=== PATIENT | female | born 1945 | race Caucasian/White ===

== ENCOUNTER 2019-05-01 10:24 | Outpatient (RCR) | payer MEDICARE, BC, SELFPAY ==
[2019-05-01 11:20] VITALS: BMI 52.0
== END 2019-06-13 15:10 | disposition home or self-care (01) ==
LOC: ANHWOC 10:24
PROVIDERS: PCP Family Medicine; Visit Provider Family Medicine
DX: I87.2 Venous insufficiency (chronic) (peripheral) (principal)
CPT/HCPCS: 92593; 99212; A9270; G0463

== ENCOUNTER 2022-02-02 11:28 | Outpatient (CLI) | payer MEDICARE, BC, SELFPAY ==
[2022-02-02 11:52] LABS: Basophils Absolute Auto 0.1 K/mm3 (0.0-0.1); Basophils Percent Auto 0.6 % (0.2-1.2); Eosinophils Absolute Auto 0.2 K/mm3 (0-0.3); Eosinophils Percent Auto 2.4 % (0-4.4); Hematocrit 30.7 % (37.0-47.0); Immature Granulocyte Absolute 0.04 K/mm3 (0.00-0.031); Immature Granulocyte Percent A 0.5 % (0-0.5); Lymphocytes Absolute Auto 0.71 K/mm3 (0.9-3.2); Lymphocytes Percent Auto 8.2 % (18.3-44.2); Mean Corpuscular HGB Conc 32.6 g/dl (32-36); Mean Corpuscular Hemoglobin 31.5 pg (26-34); Mean Corpuscular Volume 96.8 fl (80-100); Mean Platelet Volume 9.3 fl (7.4-10.4); Monocytes Absolute Auto 0.7 K/mm3 (0.1-0.6); Monocytes Percent Auto 8.2 % (2.6-8.5); Neutrophils Percent Auto 80.1 % (45.5-73.1); Platelet Count Result 235 k/mm3 (150-375); Red Blood Count 3.17 M/mm3 (4.2-5.4); Red Cell Distribution Width 14.3 % (11.5-14.5); White Blood Count 8.7 K/mm3 (4.5-10.0)
[2022-02-02 15:28] LABS: Iron 52 ug/dL (37-170)
[2022-02-02 15:34] LABS: Alanine Aminotransferase 16 U/L (6-35); Albumin Level 4.1 g/dL (3.5-5.1); Alkaline Phosphatase 79 U/L (38-126); Anion Gap 10 mmol/L (8-16); Aspartate Amino Transferase 24 U/L (14-36); Bilirubin,Total 0.7 mg/dL (0.2-1.3); Blood Urea Nitrogen 38 mg/dL (7-17); Calcium 10.6 mg/dL (8.4-10.2); Carbon Dioxide 30 mmol/L (22-30); Chloride 95 mmol/L (98-107); Estimated Glomerular Filt Rate 34; Glucose 100 mg/dL (65-110); Lactate Dehydrogenase 152 U/L (120-246); Potassium 4.1 mmol/L (3.4-5.0); Sodium 135 mmol/L (137-145)
[2022-02-02 15:45] LABS: Percent Iron Saturation 18 % (20-50)
[2022-02-02 16:42] LABS: Folic Acid 6.6 ng/mL (2.76->20); Vitamin B12 > 1000.0 pg/mL (239-931)
== END 2022-02-02 11:29 | disposition home or self-care (01) ==
LOC: ANHLAB 11:31
PROVIDERS: PCP Family Medicine; Visit Provider Internal Medicine Hematology & Oncology
DX: D64.9 Anemia, unspecified (principal)
CPT/HCPCS: 36415; 80053; 82607; 82728; 82746; 83540; 83550; 83615; 85025

== ENCOUNTER 2022-06-29 10:35 | Observation (INO) | payer MEDICARE, BC, SELFPAY ==
[2022-06-29] VITALS (39 sets, daily range): BP systolic 111–180; BP diastolic 46–117; PULSE 62–92; RESP 14–24; TEMP 36.2–36.7; O2SAT 95–100; BMI 58.3
--- NOTE | ~2022-06-29 | US_ITS ---
Duplex Sonography of the bilateral lower extremities: Indication: Swelling Sagittal and transverse B-mode images as well as color-flow imaging were performed on the right and l eft femoral and popliteal veins. B-mode examination was done without and with compression in the tra nsverse plane. There is good visualization of the bilateral common femoral, proximal profunda femora l, superficial femoral, greater saphenous, and popliteal veins. Normal flow was seen on color-flow im aging. Normal compressibility was demonstrated. Impression: No evidence of deep vein thrombosis involving the bilateral femoral, greater saphenous, s uperficial femoral, or popliteal veins. Reviewed, dictated and finalized at location M. ULATION REPRESENTATIVE Impression: No evidence of deep vein thrombosis involving the bilateral femoral , greater saphenous, superficial femoral, or popliteal veins.
--- NOTE | ~2022-06-29 | CT_ITS ---
Noncontrast CT scan of the lumbar spine CLINICAL HISTORY: Back pain TECHNIQUE: Axial noncontrast imaging of the lumbar spine was performed. Sagittal and coronal reformat hilda images were constructed. Dose reduction technique was used on this scan by utilizing automated ex posure control and iterative reconstruction technique. FINDINGS: Levoscoliosis of the thoracolumbar spine noted. No acute fracture identified. Minimal grade 1 retrolisthesis of L1 over L2 present. There is severe degenerative disc narrowing at all lumbar le vels. There is near complete obliteration and possible partial fusion across the L4-L5 disc space. At L1-L2, disc osteophyte complex is present with minimal facet arthropathy. There is probable at rosa st mild central canal stenosis. There is severe bilateral neural foraminal narrowing. At L2-L3, there is disc osteophyte complex and facet arthropathy, which contribute to probable severe thecal sac compression/central spinal canal stenosis. There is moderate bilateral neural foraminal n arrowing. At L3-L4, disc osteophyte complex and facet arthropathy contribute to severe thecal sac compression/s ken canal stenosis. There is severe bilateral neural foraminal narrowing. At L4-L5, disc osteophyte complex and facet arthropathy contribute to severe thecal sac compression/c entral canal stenosis. There is severe right neural foraminal narrowing and moderate to severe left n eural foraminal narrowing. At L5-S1, disc bulge and facet arthropathy are present. There is probable at least moderate central c anal stenosis/thecal sac compression. There is severe bilateral neural foraminal narrowing, right wor se than left. Paravertebral soft tissues are unremarkable. IMPRESSION: Severe degenerative spondylosis, as detailed above. There is multilevel severe thecal sac compression /spinal canal stenosis as well as multilevel severe neural foraminal narrowing. Consider follow-up MR to further evaluate, as indicated. Levoscoliosis with minimal grade 1 retrolisthesis of L1 over L2. Reviewed, dictated and finalized at location M. R SPECIALIST IMPRESSION: Severe degenerative spondylosis, as detailed above. There is multilevel severe thecal sac compression/spinal canal stenosis as well as multilevel severe neura l foraminal narrowing. Consider follow-up MR to further evaluate, as indicated. Levoscoliosis with minimal grade 1 retrolisthesis of L1 over L2.
--- NOTE | ~2022-06-29 | XR_ITS ---
XR chest 2V DATE: 06/29/2022 11:47 INDICATION: Increased shortness of breath, weakness TECHNIQUE: AP and lateral views COMPARISON: 05/01/2019 portable AP chest FINDINGS: Status post posterior C7-T1 spine surgical fusion. Cardiomegaly. Pulmonary vascular redistribution may indicate mild pulmonary venous hypertension. Aort ic arch calcification. No hilar or mediastinal enlargement. No pulmonary infiltrate or consolidation, pleural effusion or pneumothorax is detected. Severe bilateral glenohumeral osteoarthritis. Degenerative spurring of the thoracic and lumbar spine. Old posterolateral healed right seventh rib fracture. Osteopenia. IMPRESSION: Cardiomegaly Pulmonary vascular redistribution may indicate mild pulmonary venous hypertension Reviewed, dictated and finalized at location B. VAN CDL TRUCK DRIVER IMPRESSION: Cardiomegaly Pulmonary vascular redistribution may indicate mild pulmonary venous hypertensi on
--- NOTE | 2022-06-29 11:03 | ECG_ITS ---
Measurements Intervals [place] Rate: 67 P: [place]: 0 QRS: -71 QRSD: 104 T: 56 QT: 425 QTc: 452 Interpretive Statements ATRIAL FIBRILLATION LOW QRS VOLTAGE IN PRECORDIAL LEADS INFERIOR INFARCT, AGE INDETERMINATE EXTENSIVE ANTERIOR INFARCT, AGE INDETERMINATE BORDERLINE ST-T WAVE ABNORMALITY- HIGH LATERAL LEADS BASELINE ARTIFACT- I, III, AVR, AVL, AVF, V1, V6 ABNORMAL ECG COMPARED TO ECG 05/01/2019 12:38:04 NO SIGNIFICANT CHANGES Electronically Signed On 06-29-2022 11:18:01 [employer]OOK[employer] MACHINE by Miguel Maguire D.O.
[2022-06-29 11:20] LABS: Basophils Absolute Auto 0.1 K/mm3 (0.0-0.1); Basophils Percent Auto 0.7 % (0.2-1.2); Eosinophils Absolute Auto 0.2 K/mm3 (0-0.3); Eosinophils Percent Auto 2.4 % (0-4.4); Hematocrit 34.8 % (37.0-47.0); Hemoglobin 11.2 g/dL (12.0-15.0); Immature Granulocyte Absolute 0.04 K/mm3 (0.00-0.031); Immature Granulocyte Percent A 0.6 % (0-0.5); Lymphocytes Absolute Auto 0.75 K/mm3 (0.9-3.2); Lymphocytes Percent Auto 11.1 % (18.3-44.2); Mean Corpuscular HGB Conc 32.2 g/dl (32-36); Mean Corpuscular Hemoglobin 32.2 pg (26-34); Mean Platelet Volume 9.5 fl (7.4-10.4); Monocytes Absolute Auto 0.5 K/mm3 (0.1-0.6); Monocytes Percent Auto 6.8 % (2.6-8.5); Neutrophils Absolute Auto 5.3 K/mm3 (1.3-6.7); Neutrophils Percent Auto 78.4 % (45.5-73.1); Platelet Count Result 202 k/mm3 (150-375); Red Blood Count 3.48 M/mm3 (4.2-5.4); Red Cell Distribution Width 14.4 % (11.5-14.5); White Blood Count 6.8 K/mm3 (4.5-10.0)
[2022-06-29 11:30] LABS: Alanine Aminotransferase 22 U/L (6-35); Albumin Level 4.4 g/dL (3.5-5.1); Alkaline Phosphatase 77 U/L (38-126); Anion Gap 9 mmol/L (8-16); Aspartate Amino Transferase 31 U/L (14-36); Bilirubin,Total 0.7 mg/dL (0.2-1.3); Blood Urea Nitrogen 38 mg/dL (7-17); Calcium 9.3 mg/dL (8.4-10.2); Carbon Dioxide 27 mmol/L (22-30); Chloride 101 mmol/L (98-107); Estimated Glomerular Filt Rate 31; Glucose 81 mg/dL (65-110); Potassium 4.2 mmol/L (3.4-5.0); Sodium 137 mmol/L (137-145)
[2022-06-29 12:41] LABS: Influenza A QL RT-PCR Negative (Negative); Influenza B QL RT-PCR Negative (Negative); SARS-CoV-2 RNA PCR Negative
--- NOTE | 2022-06-29 13:41 | ED.WEAKNESS ---
HPI - Weakness General Chief complaint: Weakness Stated complaint: back pain, weakness Time Seen by Provider: 06/29/22 11:17 Source: patient Mode of arrival: EMS Limitations: no limitations History of Present Illness HPI Narrative: 77-year-old female with past medical history of CHF, A. fib on Eliquis, hypertension, type 2 diabetes, JOSE, CKD who presents with weakness that began 5 days ago. She states over the weekend she began having left-sided back pain that comes and goes. Tylenol somewhat helped with her pain. She describes it as sharp, and felt like she was not able to ambulate well today. Denies any urinary urgency, frequency, pain. No nausea, vomiting, diarrhea, melena, fever, chills, loss of consciousness. Related Data Home Medications Medication Instructions Recorded Confirmed bimatoprost 0.01 % eye drops 1 drop ophthalmic (eye) QPM 04/30/19 09/22/21 (Lumigan) ascorbic acid (vitamin C) 500 mg 500 mg PO DAILY 05/01/19 09/22/21 tablet brimonidine 0.2 % eye drops 1 drp ophthalmic (eye) BID 05/01/19 09/22/21 calcium carbonate 600 mg-vitamin 1 cap PO DAILY 05/01/19 09/22/21 D3 5 mcg (200 unit) capsule (Calcium 600 + D(3)) cholecalciferol (vitamin D3) 50 2,000 unit PO DAILY 05/01/19 09/22/21 mcg (2,000 unit) tablet (Vitamin D3) cyanocobalamin (vitamin B-12) 1,000 mcg PO DAILY 05/01/19 09/22/21 1,000 mcg tablet (Vitamin B-12) garlic 1,000 mg capsule 2,000 mg PO DAILY 05/01/19 09/22/21 gelatin 650 mg capsule 1,300 mg PO DAILY 05/01/19 09/22/21 krill 500 mg-omega 3 115 mg-dha 30 1 cap PO DAILY 05/01/19 09/22/21 mg-epa 64 hb-xrmkosy-fxnoh capsule (MegaRed [place]-3 Krill Oil) pyridoxine (vitamin B6) 100 mg 100 mg PO DAILY 05/01/19 09/22/21 tablet (Vitamin B-6) vitamin E 268 mg (400 unit) capsule 400 unit PO DAILY 05/01/19 09/22/21 psyllium husk 0.4 gram capsule 0.4 g PO DAILY 05/03/21 09/22/21 (Metamucil) Allergies Allergy/AdvReac Type Severity Reaction Status Date / Time diclofenac Allergy Unknown Unknown Verified 09/22/21 09:45 griseofulvin Allergy Unknown Rash Verified 09/22/21 09:45 Penicillins Allergy Unknown Unknown Verified 09/22/21 09:45 Gdkfxgo-ACA-OxL Reductase Allergy Unknown Unknown Verified 09/22/21 09:45 Inhibitor [Svujbbb-Cgb-Jkr Reductase Inhibitor] Sulfa (Sulfonamide Allergy Unknown Unknown Verified 09/22/21 09:45 Antibiotics) Review of Systems Review of Systems: All systems reviewed & are unremarkable except as noted in HPI and below Constitutional: Constitutional: Reports no additional constitutional complaints Eyes: Eyes: Reports no additional eye complaints ENT: Reports system reviewed and no additional complaints, except as documented Cardiovascular: Cardiovascular: Reports no additional cardiovascular complaints Respiratory: Respiratory: Reports no additional respiratory complaints Gastrointestinal: Gastrointestinal: Reports no additional gastrointestinal complaints Musculoskeletal: Musculoskeletal: Reports as per HPI Neurologic: Reports system reviewed and no additional complaints, except as documented [facility] Past Medical History Medical History Arthritis Cataracts, bilateral CHF (congestive heart failure) Diabetes Glaucoma Heart murmur HTN (hypertension) Hyperlipidemia Impacted cerumen of both ears Poor personal hygiene Post-menopausal Seasonal allergies Surgical History Surgical History History of dilation and curettage Hx of cervical spine surgery Family History Family History Father Diabetes mellitus Mother Hypertension Social History Social History Second hand tobacco smoke exposure: No Alcohol intake: never Substance use: never Substance use type: does not use Additional living arrangements com
[2022-06-29 14:58] LABS: Appearance Urine Cloudy (Clear); Bilirubin Urine Negative (Negative); Blood Urine Negative (Negative); Color Urine Yellow (Yellow); Glucose Urine UA Negative (Negative); Ketones Urine Negative (Negative); Leukocyte Esterase Ur 1+ LEU/UL (Negative); Nitrate Urine Negative (Negative); Protein Urine 2+ mg/dL (Negative); Specific Grav Ur 1.015 (1.001-1.035); Urobilinogen Urine 0.2 mg/dL (<2.0)
[2022-06-29 15:02] LABS: Bacteria Urine Trace /hpf; Mucus Urine Rare /lpf; RBC Urine 0-2 /hpf (0-2); Squamous Epithelial Cell Urine Rare /hpf (Few); WBC Urine 31-50 /hpf
[2022-06-29 15:09] LABS: Add Urine Microscopic? YES
--- NOTE | 2022-06-29 17:32 | PCCCNOTE ---
Addendum entered by Luisa Talbot RN 06/29/22 17:54: Called to Adult Protective Services Hotline, report made for self-neglect, Patrica Ramirez took report and will send to [facility] for review and follow up on report. . Per Patrica, there is not a reference # for the call but can use her name for reference of the call. Original Note: Met with niece Aristeo outside of patient room as requesting resources, she states that patient is unable to care for herself and needs additional help but doesn't want to leave her home and go to a facility. She has a caregiver, Leeanna a few days a week for a few hours. Everyone once in awhile Leeanna can encourage the patient to lean over and get her hair washed but patient is not showering. Patient does have a life chair and uses walker but not able to get to bathroom in a timely manner, often with feces/ urine on clothes. Per Aristeo, patient's niece she is agreeable to maybe some extra help in the home but refuses assisted living or shelter. Discussion with Aristeo and patient, she is agreeable to private caregiver list, assisted living, and transportation resources for wheelchair van. Discussion with bedside RN, patient admitted and had odor, urine soaked clothes and toe nails are curling over. Dr. Evans with discussion to patient and niece Aristeo about workup, report that she can't go home that will need rehab to get stronger as there is not way that she could walk with the walker and get in the home. Called to PT harinder Jean to see if able to eval in the ER, unable to eval in ER due to late in day and staffing. Dr. Evans aware and will plan for observation admit.
--- NOTE | 2022-06-29 17:45 | PM.IMHP ---
H&P: HPI History of Present Illness Date/Time: 06/29/22 17:45 Chief Complaint: Weakness Narrative: This is a 77-year-old female patient who has caregivers coming into her home Monday and Monday. She was able to take care for self with the assistance of the caregivers. However the patient stated that she has had severe lower back pain and is having difficulty moving. The patient has a history of CHF and AFib on Eliquis hypertension diabetes type 2 obstructive sleep apnea chronic kidney disease. The patient stated that her weakness got worse over the last 5 days. The patient stated she is unable to ambulate due to the sharp back pain. Her H&H is 11.2 and 34.8 which appears to be her baseline. Her creatinine is 1.6 which appears to be her baseline. Blood sugars are in the 120s. Urine has 1+ leukocyte esterase and 31-50 wbc's. Chest x-ray was read as pulmonary vascular redistribution may indicate mild pulmonary venous hypertension. The patient is being admitted to observation status on the date of service of 06/29/2022. Review of Systems Review of Systems: See HPI All systems reviewed & are unremarkable except as noted in HPI and below Constitutional: Constitutional: Reports as per HPI and Reports no additional constitutional complaints Eyes: Eyes: Reports as per HPI and Reports no additional eye complaints ENT: Reports system reviewed and no additional complaints, except as documented and Reports Normal hearing present Cardiovascular: Cardiovascular: Reports no additional cardiovascular complaints Respiratory: Respiratory: Reports no additional respiratory complaints and Reports no additional respiratory complaints Gastrointestinal: Gastrointestinal: Reports as per HPI and Reports no additional gastrointestinal complaints Musculoskeletal: Musculoskeletal: Reports no additional musculoskeletal complaints Integumentary/Breasts: Skin/Breast: Reports system reviewed and no additional complaints, except as docu and Reports as per HPI Neurologic: Reports system reviewed and no additional complaints, except as documented, Reports as per HPI and Reports Normal hearing present Psychiatric: Psychiatric: Reports no additional psychiatric complaints and Reports as per HPI Endocrine: Endocrine: Reports no additional endocrine complaints Hematologic/Lymphatic: Hematologic/Lymphatic: Reports no additional hematologic/lymphatic complaints Allergic/Immunologic: Allergic/Immunologic: Reports no additional allergic/immunologic complaints [facility] Past Medical History Medical History Arthritis Atrial fibrillation Cataracts, bilateral CHF (congestive heart failure) Diabetes Glaucoma Heart murmur HTN (hypertension) Hyperlipidemia Impacted cerumen of both ears JOSE on CPAP Poor personal hygiene Post-menopausal Seasonal allergies Surgical History Surgical History History of dilation and curettage Hx of cervical spine surgery Family History Family History Father Diabetes mellitus Mother Hypertension Social History Social History (Updated 06/29/22 @ 22:52 by Lisa Díaz NP) Social History: The patient is single and has no children. 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 Her niece Aristeo whitt is the durable power managing attorney for healthcare. The patient is lifelong nonsmoker. She does not use any alcohol marijuana or illicit drugs. Full code Smoking status: Never smoker Second hand tobacco smoke exposure: No Alcohol intake: never Substance use: never Substance use type: does not use Lack of Transportation: No Lack of Food: Never True Current Housing: I Do Not Have Housing Concerned About Future Housing: No Difficulty Paying Gas/Electric Bills: No Difficulty Paying for Meds: No Currently Unemployed: No Education: Assoc
[2022-06-29 17:49] LABS: Glucose Point of Care 131 mg/dl (65-105)
--- NOTE | 2022-06-29 18:03 | ADMGEN ---
This patient, Corinne Hill, was admitted to Medical Room 248-. Patient/family oriented to hospital policies and general routines including ID bracelet, bed and alarms, visiting hours, pain management, procedures, bathroom and other care routines, personal items, smoking policy, room service/diet, and visiting hours. Information on how to activate the Rapid Response Team has been discussed. Patient/Family are encouraged to report perceived risks to care and to ask questions if they do not understand what they are told or what they should do.
--- NOTE | 2022-06-29 18:11 | PCCCNOTE ---
PASSR completed, No Level II required, PT/OT orders are in, unable to have eval in ED. [facility] facility list has been provided to patient for choices. Patient knows that she wants first choice of [facility], she will review for other choices. Facesheet and ER note sent to [facility].
[2022-06-29 21:11] LABS: Glucose Point of Care 123 mg/dl (65-105)
[2022-06-29] MEDS: METOPROLOL TARTRATE 50 MG TAB PO (23:40)
[2022-06-29] MEDS: FLUTICASONE PROPIONATE 0.05% NA SPR 16 GM BTL (*BKC) 1 SPRAY NASAL (23:40)
[2022-06-29] MEDS: DOXAZOSIN MESYLATE 4 MG TABLET 8 MG PO (23:40)
[2022-06-29] MEDS: hydrALAZINE HCL 50 MG TABLET PO (23:40)
[2022-06-29] MEDS: APIXABAN 5 MG TABLET PO (23:41)
[2022-06-30] VITALS (9 sets, daily range): BP systolic 127–147; BP diastolic 40–59; PULSE 62–72; RESP 16–20; TEMP 36.6–37.2; O2SAT 95–97
[2022-06-30 05:08] LABS: Lactic Acid Reflex 0.8 mmol/L (0.7-2.0)
[2022-06-30 05:15] LABS: Alanine Aminotransferase 22 U/L (6-35); Albumin Level 3.5 g/dL (3.5-5.1); Alkaline Phosphatase 59 U/L (38-126); Anion Gap 5 mmol/L (8-16); Aspartate Amino Transferase 30 U/L (14-36); Bilirubin,Total 0.6 mg/dL (0.2-1.3); Blood Urea Nitrogen 33 mg/dL (7-17); CRP < 0.5 mg/dL (<1.0); Calcium 8.5 mg/dL (8.4-10.2); Carbon Dioxide 29 mmol/L (22-30); Chloride 102 mmol/L (98-107); Estimated Glomerular Filt Rate 34; Glucose 92 mg/dL (65-110); Magnesium 1.9 mg/dL (1.6-2.3); Phosphorus 3.2 mg/dL (2.5-4.5); Potassium 3.8 mmol/L (3.4-5.0); Sodium 136 mmol/L (137-145)
[2022-06-30 08:52] LABS: Glucose Point of Care 104 mg/dl (65-105)
[2022-06-30] MEDS: FLUTICASONE PROPIONATE 0.05% NA SPR 16 GM BTL (*BKC) 1 SPRAY NASAL ×2 (08:54→20:10)
[2022-06-30] MEDS: METOPROLOL TARTRATE 50 MG TAB PO ×2 (08:55→16:24)
[2022-06-30] MEDS: hydrALAZINE HCL 50 MG TABLET PO ×2 (08:55→16:26)
[2022-06-30] MEDS: IRBESARTAN 150 MG TABLET 300 MG PO (08:55)
[2022-06-30] MEDS: GLIMEPIRIDE 2 MG TABLET 4 MG PO (08:56)
[2022-06-30] MEDS: APIXABAN 5 MG TABLET PO ×2 (08:56→20:08)
[2022-06-30] MEDS: MONTELUKAST SODIUM 10 MG TABLET BY MOUTH (08:56)
[2022-06-30] MEDS: dilTIAZem HCL CD 180 MG CAP.ER.24H PO (08:56)
[2022-06-30] MEDS: FUROSEMIDE 40 MG TABLET BY MOUTH (08:56)
--- NOTE | 2022-06-30 09:29 | PM.IMPN ---
Progress Note: A&P Assessment and Plan (1) Back pain: Code(s): M54.9 - Dorsalgia, unspecified Status: Acute Assessment and Plan: -the patient has been complaining of severe back pain and has difficulty ambulating due to the back pain -PT and OT have been consulted for further recommendation -healthcare liaison has been consulted for further placement or increase in home health. The patient has a caregiver Monday. -Continue with analgesics as needed. -overall significantly improved, denies pain today. DDx Pain due to UTI vs low back strain vs lumbar compression fractures. Unable to get CT abd/pelv w/ contrast to r/o pyelo due to renal function. Considered L spine CT however with her being pain free today we can defer at this time. Will reconsider if she develops back pain again. (2) UTI (urinary tract infection): Code(s): N39.0 - Urinary tract infection, site not specified Status: Acute Assessment and Plan: -could be contributing to her back pain/weakness -the patient was started on Rocephin -urine and blood cultures are pending -tailor antibiotics to culture results (3) Atrial fibrillation: Qualifiers: Atrial fibrillation type: longstanding persistent Qualified Code(s): I48.11 - Longstanding persistent atrial fibrillation Code(s): I48.91 - Unspecified atrial fibrillation Status: Acute Assessment and Plan: -continue apixaban and diltiazem (4) Type 2 diabetes mellitus with obesity: Code(s): E11.69 - Type 2 diabetes mellitus with other specified complication; E66.9 - Obesity, unspecified Status: Acute Assessment and Plan: -Accu-Cheks ACHS with sliding scale insulin and hypoglycemic protocol -hold metformin due to the renal failure -continue Glimeperide -glucose 92 this AM (5) Anemia: Code(s): D64.9 - Anemia, unspecified Status: Acute Assessment and Plan: -the patient is at her baseline continue to monitor -the patient is on apixaban (6) Chronic kidney disease (CKD): Code(s): N18.9 - Chronic kidney disease, unspecified Status: Acute Assessment and Plan: -Creatinine is 1.6 which appears to be her baseline. Her GFR is 31 -Metformin held (7) Congestive heart failure: Code(s): I50.9 - Heart failure, unspecified Status: Acute Assessment and Plan: -continue Metoprolol and Lasix -Echo from 05/02/2019 reviewed (8) HTN (hypertension): Qualifiers: Hypertension type: essential hypertension Qualified Code(s): I10 - Essential (primary) hypertension Code(s): I10 - Essential (primary) hypertension Status: Acute Assessment and Plan: -Continue metoprolol, Cardizem, Cardura, Lasix, hydralazine, Avapro (9) Mixed hyperlipidemia: Code(s): E78.2 - Mixed hyperlipidemia Status: Acute Assessment and Plan: -Diabetic heart healthy diet (10) JOSE on CPAP: Code(s): G47.33 - Obstructive sleep apnea (adult) (pediatric); Z99.89 - Dependence on other enabling machines and devices Status: Acute Assessment and Plan: -Titrate CPAP to home setting (11) Poor personal hygiene: Code(s): R46.0 - Very low level of personal hygiene Status: Acute Assessment and Plan: -The patient has very long toenails. I asked the patient if she had been going to the floor service worker [facility] as she should for diabetic patient and she stated she was unable to go at this time. Patient is in need of having her nails clipped. She also has very flaky dry skin to both of her legs. -Wound consult (12) Glaucoma: Qualifiers: Glaucoma type: unspecified Laterality: bilateral Qualified Code(s): H40.9 - Unspecified glaucoma Code(s): H40.9 - Unspecified glaucoma Status: Acute Assessment and Plan: -continue with home eye drops Subjectiv
[2022-06-30] MEDS: TOLNAFTATE 1% POWDER 45 GM BTL 1 APPLIC TOPICAL ×2 (10:09→20:12)
[2022-06-30 12:16] LABS: Glucose Point of Care 159 mg/dl (65-105)
[2022-06-30 14:26] LABS: Free T4 Free Thyroxine Reflex 1.52 ng/dL (0.78-2.19)
--- NOTE | 2022-06-30 15:53 | PC.NURSE ---
On 06/30/22, the student, [Chanelle Hanna], provided care and completed [facility]. I have reviewed the student's documentation and agree with the findings.
[2022-06-30 17:08] LABS: Glucose Point of Care 109 mg/dl (65-105)
[2022-06-30 17:14] LABS: Total Triiodothyronine (T3) 0.99 NG/ML (0.97-1.69)
[2022-06-30] MEDS: DOXAZOSIN MESYLATE 4 MG TABLET 8 MG PO (20:08)
[2022-06-30 20:14] LABS: Glucose Point of Care 165 mg/dl (65-105)
[2022-07-01 03:02] VITALS: BP 143/63; PULSE 64; RESP 20; TEMP 36.8; O2SAT 94
[2022-07-01 06:22] LABS: Basophils Absolute Auto 0.1 K/mm3 (0.0-0.1); Basophils Percent Auto 0.6 % (0.2-1.2); Eosinophils Absolute Auto 0.4 K/mm3 (0-0.3); Eosinophils Percent Auto 5.1 % (0-4.4); Hematocrit 31.5 % (37.0-47.0); Hemoglobin 10.3 g/dL (12.0-15.0); Immature Granulocyte Absolute 0.03 K/mm3 (0.00-0.031); Immature Granulocyte Percent A 0.4 % (0-0.5); Lymphocytes Absolute Auto 0.69 K/mm3 (0.9-3.2); Lymphocytes Percent Auto 8.6 % (18.3-44.2); Mean Corpuscular HGB Conc 32.7 g/dl (32-36); Mean Corpuscular Hemoglobin 32.1 pg (26-34); Mean Corpuscular Volume 98.1 fl (80-100); Mean Platelet Volume 9.9 fl (7.4-10.4); Monocytes Absolute Auto 0.7 K/mm3 (0.1-0.6); Monocytes Percent Auto 9.2 % (2.6-8.5); Neutrophils Absolute Auto 6.1 K/mm3 (1.3-6.7); Neutrophils Percent Auto 76.1 % (45.5-73.1); Platelet Count Result 195 k/mm3 (150-375); Red Blood Count 3.21 M/mm3 (4.2-5.4); Red Cell Distribution Width 14.4 % (11.5-14.5); White Blood Count 8.1 K/mm3 (4.5-10.0)
[2022-07-01 06:48] LABS: Anion Gap 6 mmol/L (8-16); Blood Urea Nitrogen 31 mg/dL (7-17); Calcium 8.7 mg/dL (8.4-10.2); Carbon Dioxide 28 mmol/L (22-30); Chloride 100 mmol/L (98-107); Estimated Glomerular Filt Rate 40; Glucose 118 mg/dL (65-110); Potassium 3.8 mmol/L (3.4-5.0); Sodium 134 mmol/L (137-145)
--- NOTE | 2022-07-01 07:34 | P.PNIM_ITS ---
Progress Note: A&P Assessment and Plan (1) Back pain: Code(s): M54.9 - Dorsalgia, unspecified Status: Acute Assessment and Plan: * the patient has been complaining of severe back pain and has difficulty ambulating due to the back pain * PT and OT have been consulted for further recommendation * healthcare insurance sales agent has been consulted for further placement or increase in home health. The patient has a caregiver Monday. * Continue with analgesics as needed. * DDx Pain due to UTI vs low back strain vs lumbar compression fractures. * Unable to get CT abd/pelv w/ contrast to r/o pyelo due to renal function. * CT L spine revealed severe degenerative spondylosis, multilevel severe thecal sac compression/spinal canal stenosis, severe neural foraminal narrowing and levoscoliosis of L1 over L2. (2) UTI (urinary tract infection): Code(s): N39.0 - Urinary tract infection, site not specified Status: Acute Assessment and Plan: Patient was found to have positive UA with +1 leukocyte esterase and 31-50 white blood cell. * could be contributing to her back pain/weakness * the patient was started on Rocephin * urine cultures positive for E coli sensitivities pending * Blood cultures no growth to date (3) Atrial fibrillation: Qualifiers: Atrial fibrillation type: longstanding persistent Qualified Code(s): I48.11 - Longstanding persistent atrial fibrillation Code(s): I48.91 - Unspecified atrial fibrillation Status: Acute Assessment and Plan: * continue apixaban and diltiazem (4) Type 2 diabetes mellitus with obesity: Code(s): E11.69 - Type 2 diabetes mellitus with other specified complication; E66.9 - Obesity, unspecified Status: Chronic Assessment and Plan: * Accu-Cheks ACHS with sliding scale insulin and hypoglycemic protocol * Hold metformin due to the renal failure * Continue Glimeperide * Glucose 92 this AM (5) Anemia: Code(s): D64.9 - Anemia, unspecified Status: Acute Assessment and Plan: * the patient is at her baseline continue to monitor * the patient is on apixaban (6) Chronic kidney disease (CKD): Code(s): N18.9 - Chronic kidney disease, unspecified Status: Acute Assessment and Plan: * Creatinine is 1.6 which appears to be her baseline. Her GFR is 31 * Metformin held 07/01/22 * GFR improved to 40 * Will restart home metformin * According to UpToDate continuation of metformin with a GFR between 30 and 45 is safe with the does of 500 mg twice a day. (7) Congestive heart failure: Code(s): I50.9 - Heart failure, unspecified Status: Acute Assessment and Plan: * Continue Metoprolol and Lasix * Echo from 05/02/2019 reviewed (8) HTN (hypertension): Qualifiers: Hypertension type: essential hypertension Qualified Code(s): I10 - Essential (primary) hypertension Code(s): I10 - Essential (primary) hypertension Status: Acute Assessment and Plan: * Continue metoprolol, Cardizem, Cardura, Lasix, hydralazine, Avapro (9) Mixed hyperlipidemia: Code(s): E78.2 - Mixed hyperlipidemia Status: Acute Assessment and Plan: * Diabetic heart healthy diet (10) JOSE on CPAP: Code(s): G47.33 - Obstructive sleep apnea (adult) (pediatric); Z99.89 - Dependence on other enabling machines
--- NOTE | 2022-07-01 07:34 | PM.IMPN ---
Progress Note: A&P Assessment and Plan (1) Back pain: Code(s): M54.9 - Dorsalgia, unspecified Status: Acute Assessment and Plan: the patient has been complaining of severe back pain and has difficulty ambulating due to the back pain PT and OT have been consulted for further recommendation social worker palliative care has been consulted for further placement or increase in home health. The patient has a caregiver Monday. Continue with analgesics as needed. DDx Pain due to UTI vs low back strain vs lumbar compression fractures. Unable to get CT abd/pelv w/ contrast to r/o pyelo due to renal function. CT L spine revealed severe degenerative spondylosis, multilevel severe thecal sac compression/spinal canal stenosis, severe neural foraminal narrowing and levoscoliosis of L1 over L2. (2) UTI (urinary tract infection): Code(s): N39.0 - Urinary tract infection, site not specified Status: Acute Assessment and Plan: Patient was found to have positive UA with +1 leukocyte esterase and 31-50 white blood cell. could be contributing to her back pain/weakness the patient was started on Rocephin urine cultures positive for E coli sensitivities pending Blood cultures no growth to date (3) Atrial fibrillation: Qualifiers: Atrial fibrillation type: longstanding persistent Qualified Code(s): I48.11 - Longstanding persistent atrial fibrillation Code(s): I48.91 - Unspecified atrial fibrillation Status: Acute Assessment and Plan: continue apixaban and diltiazem (4) Type 2 diabetes mellitus with obesity: Code(s): E11.69 - Type 2 diabetes mellitus with other specified complication; E66.9 - Obesity, unspecified Status: Chronic Assessment and Plan: Accu-Cheks ACHS with sliding scale insulin and hypoglycemic protocol Hold metformin due to the renal failure Continue Glimeperide Glucose 92 this AM (5) Anemia: Code(s): D64.9 - Anemia, unspecified Status: Acute Assessment and Plan: the patient is at her baseline continue to monitor the patient is on apixaban (6) Chronic kidney disease (CKD): Code(s): N18.9 - Chronic kidney disease, unspecified Status: Acute Assessment and Plan: Creatinine is 1.6 which appears to be her baseline. Her GFR is 31 Metformin held 07/01/22 GFR improved to 40 Will restart home metformin According to UpToDate continuation of metformin with a GFR between 30 and 45 is safe with the does of 500 mg twice a day. (7) Congestive heart failure: Code(s): I50.9 - Heart failure, unspecified Status: Acute Assessment and Plan: Continue Metoprolol and Lasix Echo from 05/02/2019 reviewed (8) HTN (hypertension): Qualifiers: Hypertension type: essential hypertension Qualified Code(s): I10 - Essential (primary) hypertension Code(s): I10 - Essential (primary) hypertension Status: Acute Assessment and Plan: Continue metoprolol, Cardizem, Cardura, Lasix, hydralazine, Avapro (9) Mixed hyperlipidemia: Code(s): E78.2 - Mixed hyperlipidemia Status: Acute Assessment and Plan: Diabetic heart healthy diet (10) JOSE on CPAP: Code(s): G47.33 - Obstructive sleep apnea (adult) (pediatric); Z99.89 - Dependence on other enabling machines and devices Status: Acute Assessment and Plan: Titrate CPAP to home setting (11) Poor personal hygiene: Code(s): R46.0 - Very low level of personal hygiene Status: Acute Assessment and Plan: The patient has very long toenails. I asked the patient if she had been going to the capacity planning analyst as she should for diabetic patient and she stated she was unable to go at this time. Patient is in need of having her nails clipped. She also has very flaky dry skin to both of her legs. Wo
--- NOTE | 2022-07-01 07:53 | PHAR ---
Spoke with Ewa Flores about using Metformin with GFR of 40 and she wants to continue the home medication
[2022-07-01 08:00] VITALS: O2SAT 95
[2022-07-01] MEDS: metFORMIN HCL 500 MG TABLET PO ×2 (08:41→16:38)
[2022-07-01 08:42] LABS: Glucose Point of Care 119 mg/dl (65-105)
[2022-07-01] MEDS: dilTIAZem HCL CD 180 MG CAP.ER.24H PO (08:42)
[2022-07-01] MEDS: FUROSEMIDE 40 MG TABLET BY MOUTH (08:42)
[2022-07-01] MEDS: FLUTICASONE PROPIONATE 0.05% NA SPR 16 GM BTL (*BKC) 1 SPRAY NASAL (08:42)
[2022-07-01] MEDS: APIXABAN 5 MG TABLET PO (08:42)
[2022-07-01] MEDS: GLIMEPIRIDE 2 MG TABLET 4 MG PO (08:43)
[2022-07-01] MEDS: hydrALAZINE HCL 50 MG TABLET PO ×2 (08:43→16:36)
[2022-07-01] MEDS: IRBESARTAN 150 MG TABLET 300 MG PO (08:43)
[2022-07-01 08:44] VITALS: PULSE 62
[2022-07-01] MEDS: LORATADINE/PSEUDOEPHEDRINE (*CRX) 10/240 MG TABLET ER 24 HR 1 TAB PO (08:44)
[2022-07-01] MEDS: METOPROLOL TARTRATE 50 MG TAB PO ×2 (08:44→16:39)
[2022-07-01] MEDS: TOLNAFTATE 1% POWDER 45 GM BTL 1 APPLIC TOPICAL (08:45)
[2022-07-01] MEDS: EUCERIN CREAM 120 GM JAR 1 APPLIC TOPICAL (08:45)
[2022-07-01] MEDS: MONTELUKAST SODIUM 10 MG TABLET BY MOUTH (08:47)
[2022-07-01 12:18] LABS: Glucose Point of Care 119 mg/dl (65-105)
--- NOTE | 2022-07-01 13:39 | P.DS_ITS ---
DS: Admitting Diagnosis Discharge Date 07/01/22 Admitting Diagnosis UTI, back pain DS: Discharge Diagnosis Discharge Diagnosis (1) Back pain: Code(s): M54.9 - Dorsalgia, unspecified Status: Acute Assessment and Plan: The patient has been complaining of severe back pain and has difficulty ambulating due to the back pain patient. Patient describes the pain as being in the left side of her back. Patient denies numbness and tingling she down her legs. Pain is very localized. * PT and OT have been consulted for further recommendation * outdoor emergency care technician has been consulted for further placement or increase in home health. The patient has a caregiver Monday. * analgesics as needed. * DDx Pain due to UTI vs low back strain vs lumbar compression fractures. * Unable to get CT abd/pelv w/ contrast to r/o pyelo due to renal function. * CT L spine revealed severe degenerative spondylosis, multilevel severe thecal sac compression/spinal canal stenosis, severe neural foraminal narrowing and levoscoliosis of L1 over L2. 07/01/22 * Back pain resolved after patient received 1st dose of antibiotic therapy. * CT lumbar spine abnormal although patient no longer experiencing any pain. * Patient has been working with PT and has not any issues with her back. * Do not believe it is necessary for Neurosurgery consult at this time due to patient not exhibiting symptoms. * Advised patient to follow-up with her primary care regarding lumbar spine CT results. (2) UTI (urinary tract infection): Code(s): N39.0 - Urinary tract infection, site not specified Status: Acute Assessment and Plan: Patient was found to have positive UA with +1 leukocyte esterase and 31-50 white blood cell. * could be contributing to her back pain/weakness. * the patient started on Rocephin. * urine cultures positive for E. coli and sensitive to Rocephin. * Blood cultures no growth to date. * Patient doing well and feeling herself again. * Patient stable. (3) Atrial fibrillation: Qualifiers: Atrial fibrillation type: longstanding persistent Qualified Code(s): I48.11 - Longstanding persistent atrial fibrillation Code(s): I48.91 - Unspecified atrial fibrillation Status: Acute Assessment and Plan: * continue apixaban and diltiazem (4) Type 2 diabetes mellitus with obesity: Code(s): E11.69 - Type 2 diabetes mellitus with other specified complication; E66.9 - Obesity, unspecified Status: Chronic Assessment and Plan: * Accu-Cheks ACHS with sliding scale insulin and hypoglycemic protocol (5) Anemia: Code(s): D64.9 - Anemia, unspecified Status: Acute Assessment and Plan: * the patient is at her baseline continue to monitor * the patient is on apixaban (6) Chronic kidney disease (CKD): Code(s): N18.9 - Chronic kidney disease, unspecified Status: Acute Assessment and Plan: * Creatinine is 1.6 which appears to be her baseline. Her GFR is 31 * Metformin held 07/01/22 * GFR improved to 40 * Will restart home metformin * According to UpToDate continuation of metformin with a GFR between 30 and 45 is safe with the does of 500 mg twice a day. (7) Congestive heart failure: Code(s): I50.9 - Heart failure, unspecified Status: Acute Assessment and Plan: * Continue Metoprolol and Lasix * Echo from 05/02/2019 reviewed (8) HTN (hypertension
--- NOTE | 2022-07-01 13:39 | PM.DS ---
DS: Admitting Diagnosis Discharge Date 07/01/22 Admitting Diagnosis UTI, back pain DS: Discharge Diagnosis Discharge Diagnosis (1) Back pain: Code(s): M54.9 - Dorsalgia, unspecified Status: Acute Assessment and Plan: The patient has been complaining of severe back pain and has difficulty ambulating due to the back pain patient. Patient describes the pain as being in the left side of her back. Patient denies numbness and tingling she down her legs. Pain is very localized. PT and OT have been consulted for further recommendation wound care nurse has been consulted for further placement or increase in home health. The patient has a caregiver Monday. analgesics as needed. DDx Pain due to UTI vs low back strain vs lumbar compression fractures. Unable to get CT abd/pelv w/ contrast to r/o pyelo due to renal function. CT L spine revealed severe degenerative spondylosis, multilevel severe thecal sac compression/spinal canal stenosis, severe neural foraminal narrowing and levoscoliosis of L1 over L2. 07/01/22 Back pain resolved after patient received 1st dose of antibiotic therapy. CT lumbar spine abnormal although patient no longer experiencing any pain. Patient has been working with PT and has not any issues with her back. Do not believe it is necessary for Neurosurgery consult at this time due to patient not exhibiting symptoms. Advised patient to follow-up with her primary care regarding lumbar spine CT results. (2) UTI (urinary tract infection): Code(s): N39.0 - Urinary tract infection, site not specified Status: Acute Assessment and Plan: Patient was found to have positive UA with +1 leukocyte esterase and 31-50 white blood cell. could be contributing to her back pain/weakness. the patient started on Rocephin. urine cultures positive for E. coli and sensitive to Rocephin. Blood cultures no growth to date. Patient doing well and feeling herself again. Patient stable. (3) Atrial fibrillation: Qualifiers: Atrial fibrillation type: longstanding persistent Qualified Code(s): I48.11 - Longstanding persistent atrial fibrillation Code(s): I48.91 - Unspecified atrial fibrillation Status: Acute Assessment and Plan: continue apixaban and diltiazem (4) Type 2 diabetes mellitus with obesity: Code(s): E11.69 - Type 2 diabetes mellitus with other specified complication; E66.9 - Obesity, unspecified Status: Chronic Assessment and Plan: Accu-Cheks ACHS with sliding scale insulin and hypoglycemic protocol (5) Anemia: Code(s): D64.9 - Anemia, unspecified Status: Acute Assessment and Plan: the patient is at her baseline continue to monitor the patient is on apixaban (6) Chronic kidney disease (CKD): Code(s): N18.9 - Chronic kidney disease, unspecified Status: Acute Assessment and Plan: Creatinine is 1.6 which appears to be her baseline. Her GFR is 31 Metformin held 07/01/22 GFR improved to 40 Will restart home metformin According to UpToDate continuation of metformin with a GFR between 30 and 45 is safe with the does of 500 mg twice a day. (7) Congestive heart failure: Code(s): I50.9 - Heart failure, unspecified Status: Acute Assessment and Plan: Continue Metoprolol and Lasix Echo from 05/02/2019 reviewed (8) HTN (hypertension): Qualifiers: Hypertension type: essential hypertension Qualified Code(s): I10 - Essential (primary) hypertension Code(s): I10 - Essential (primary) hypertension Status: Acute Assessment and Plan: Continue metoprolol, Cardizem, Cardura, Lasix, hydralazine, Avapro (9) Mixed hyperlipidemia: Code(s): E78.2 - Mixed hyperlipidemia Status: Acute Assessment and Plan: Diabetic heart healthy diet (10) JOSE on CP
[2022-07-01 14:18] VITALS: BP 141/53; PULSE 64; RESP 18; TEMP 36.5; O2SAT 97
[2022-07-01 16:03] LABS: Glucose Point of Care 101 mg/dl (65-105)
[2022-07-01 16:39] VITALS: PULSE 70
== END 2022-07-01 18:41 ==
LOC: ANHED 16:51 → ANH2MED 06-30 06:55
PROVIDERS: Nurse Practitioner; Admitting Provider Family Medicine; Emergency Provider Family Medicine; PCP Family Medicine; Visit Provider Physician Assistant
DX: M54.9 Dorsalgia, unspecified (principal); R53.1 Weakness; I13.0 Hypertensive heart and chronic kidney disease with heart failure and stage 1 through stage 4 chronic kidney disease, or unspecified chronic kidney disease; N18.9 Chronic kidney disease, unspecified; I11.0 Hypertensive heart disease with heart failure; I50.9 Heart failure, unspecified; I48.11 Longstanding persistent atrial fibrillation; N39.0 Urinary tract infection, site not specified; B96.20 Unspecified Escherichia coli [E. coli] as the cause of diseases classified elsewhere; Z23 Encounter for immunization; R26.9 Unspecified abnormalities of gait and mobility; H40.9 Unspecified glaucoma; E78.5 Hyperlipidemia, unspecified; I34.0 Nonrheumatic mitral (valve) insufficiency; I34.81 Nonrheumatic mitral (valve) annulus calcification; I36.1 Nonrheumatic tricuspid (valve) insufficiency; R46.0 Very low level of personal hygiene; G47.33 Obstructive sleep apnea (adult) (pediatric); R01.1 Cardiac murmur, unspecified; E11.9 Type 2 diabetes mellitus without complications; M47.819 Spondylosis without myelopathy or radiculopathy, site unspecified; R94.31 Abnormal electrocardiogram [ECG] [EKG]; E66.01 Morbid (severe) obesity due to excess calories; Z68.43 Body mass index [BMI] 50.0-59.9, adult; M48.061 Spinal stenosis, lumbar region without neurogenic claudication; Z20.822 Contact with and (suspected) exposure to COVID-19; M48.07 Spinal stenosis, lumbosacral region; Z79.01 Long term (current) use of anticoagulants; Z79.84 Long term (current) use of oral hypoglycemic drugs; Z79.51 Long term (current) use of inhaled steroids; Z79.899 Other long term (current) drug therapy; Z83.3 Family history of diabetes mellitus; Z82.49 Family history of ischemic heart disease and other diseases of the circulatory system
CPT/HCPCS: 36415; 51701; 71046; 72131; 80048; 80053; 81001; 82948; 83605; 83735; 84100; 84439; 84443; 84480; 85025; 86140; 87040; 87077; 87086; 87186; 87636; 90471; 90694; 93005; 93970; 96365; 96366; 96376; 97161; 97166; 99285; A9270; G0008; G0378; G0379; J0696

== ENCOUNTER 2022-08-02 12:28 | Outpatient (NON) | payer MEDICARE, BC, SELFPAY ==
[2022-08-02 13:09] LABS: Basophils Percent Auto 0.5 % (0.2-1.2); Eosinophils Absolute Auto 0.4 K/mm3 (0-0.3); Eosinophils Percent Auto 4.8 % (0-4.4); Hematocrit 31.8 % (37.0-47.0); Hemoglobin 10.4 g/dL (12.0-15.0); Immature Granulocyte Absolute 0.03 K/mm3 (0.00-0.031); Immature Granulocyte Percent A 0.4 % (0-0.5); Lymphocytes Absolute Auto 0.74 K/mm3 (0.9-3.2); Lymphocytes Percent Auto 9.9 % (18.3-44.2); Mean Corpuscular HGB Conc 32.7 g/dl (32-36); Mean Corpuscular Hemoglobin 31.6 pg (26-34); Mean Corpuscular Volume 96.7 fl (80-100); Mean Platelet Volume 10.7 fl (7.4-10.4); Monocytes Absolute Auto 0.6 K/mm3 (0.1-0.6); Monocytes Percent Auto 8.1 % (2.6-8.5); Neutrophils Absolute Auto 5.7 K/mm3 (1.3-6.7); Neutrophils Percent Auto 76.3 % (45.5-73.1); Platelet Count Result 220 k/mm3 (150-375); Red Blood Count 3.29 M/mm3 (4.2-5.4); Red Cell Distribution Width 14.7 % (11.5-14.5); White Blood Count 7.5 K/mm3 (4.5-10.0)
[2022-08-02 13:29] LABS: Alanine Aminotransferase 23 U/L (6-35); Albumin Level 4.3 g/dL (3.5-5.1); Alkaline Phosphatase 80 U/L (38-126); Anion Gap 6 mmol/L (8-16); Aspartate Amino Transferase 34 U/L (14-36); Bilirubin,Total 0.6 mg/dL (0.2-1.3); Blood Urea Nitrogen 40 mg/dL (7-17); Calcium 9.4 mg/dL (8.4-10.2); Carbon Dioxide 33 mmol/L (22-30); Chloride 95 mmol/L (98-107); Estimated Glomerular Filt Rate 34; Glucose 103 mg/dL (65-110); Potassium 3.6 mmol/L (3.4-5.0); Sodium 134 mmol/L (137-145)
== END 2022-08-02 12:29 | disposition home or self-care (01) ==
PROVIDERS: PCP Family Medicine; Visit Provider Family Medicine
DX: D64.9 Anemia, unspecified (principal); E11.69 Type 2 diabetes mellitus with other specified complication; E66.9 Obesity, unspecified
CPT/HCPCS: 80053; 85025

== ENCOUNTER 2022-08-05 10:36 | Outpatient (NON) | payer MEDICARE, BC, SELFPAY ==
[2022-08-05 11:19] LABS: Appearance Urine Clear (Clear); Bilirubin Urine Negative (Negative); Blood Urine Negative (Negative); Color Urine Yellow (Yellow); Glucose Urine UA Negative (Negative); Hyaline Casts Urine 0-2 /lpf; Ketones Urine Negative (Negative); Leukocyte Esterase Ur 2+ LEU/UL (Negative); Nitrate Urine Positive (Negative); Protein Urine Trace mg/dL (Negative); RBC Urine 0-2 /hpf (0-2); Specific Grav Ur 1.011 (1.001-1.035); Urobilinogen Urine 0.2 mg/dL (<2.0); pH Urine 7.5 (5.0-9.0)
[2022-08-05 11:27] LABS: Bacteria Urine Rare /hpf; Squamous Epithelial Cell Urine Occasional /hpf (Few); WBC Urine 21-50 /hpf
[2022-08-05 11:52] LABS: Add Urine Microscopic? YES
== END 2022-08-05 10:37 | disposition home or self-care (01) ==
LOC: ANHLAB 10:49 → HOME HLTH 10:50
PROVIDERS: PCP Family Medicine; Visit Provider Family Medicine
DX: N39.0 Urinary tract infection, site not specified (principal)
CPT/HCPCS: 81001

== ENCOUNTER 2022-08-22 13:38 | Outpatient (NON) | payer MEDICARE, BC, SELFPAY ==
[2022-08-22 14:18] LABS: Appearance Urine Clear (Clear); Bilirubin Urine Negative (Negative); Blood Urine Negative (Negative); Color Urine Yellow (Yellow); Glucose Urine UA 1+ mg/dL (Negative); Ketones Urine Negative (Negative); Leukocyte Esterase Ur 2+ LEU/UL (Negative); Need Manual Microscopic Reviewed; Nitrate Urine Positive (Negative); Non Pathogenic Casts 0-2; Protein Urine Negative (Negative); RBC Urine 0-2 /hpf (0-2); Specific Grav Ur 1.008 (1.001-1.035); Squamous Epithelial Cell Urine None seen /hpf (Few); Urobilinogen Urine 0.2 mg/dL (<2.0); WBC Urine >100 /hpf
[2022-08-22 14:19] LABS: Bacteria Urine 1+ /hpf
[2022-08-22 14:24] LABS: Add Urine Microscopic? YES
== END 2022-08-22 13:39 | disposition home or self-care (01) ==
PROVIDERS: PCP Family Medicine; Visit Provider Family Medicine
DX: N39.0 Urinary tract infection, site not specified (principal); B96.20 Unspecified Escherichia coli [E. coli] as the cause of diseases classified elsewhere
CPT/HCPCS: 81001; 87086; 87088

== ENCOUNTER 2024-07-12 17:42 | Inpatient (IN) | payer MEDICARE, BC, SELFPAY ==
--- NOTE | ~2024-07-12 | US_ITS ---
EXAMINATION: US renal BI DATE: 07/13/2024 11:28 INDICATION: Acute kidney injury. TECHNIQUE: Multiple ultrasound grayscale images of the kidneys were obtained. COMPARISON: None. FINDINGS: The right kidney measures 8.9 x 4.6 x 5.5 cm. The left kidney measures 10.6 x 5.7 x 4.8 cm. The kidne ys demonstrate normal parenchymal echogenicity. There is a 14 mm cyst in left kidney. There is no hyd ronephrosis. The bladder is normal. IMPRESSION: 1. Mild atrophy of right kidney. No hydronephrosis. Reviewed, dictated and finalized at location A. ITY ASSISTANT
--- NOTE | ~2024-07-12 | XR_ITS ---
CHEST RADIOGRAPH CLINICAL HISTORY: weakness . COMPARISON: 06/29/2022 TECHNIQUE: Single portable view of the chest. FINDINGS The cardiomediastinal silhouette is enlarged, unchanged. The lungs are clear. IMPRESSION: No focal infiltrate or effusion. Reviewed, dictated and finalized at location A. ED CORN OVEN ATTENDANT
--- NOTE | ~2024-07-12 | XR_ITS ---
Portable chest x-ray Comparison: 07/12/2024 Clinical History: Covid Findings: There is central congestive change in the lungs. No consolidation or definite pleural effu michael. Cardiomediastinal silhouette is stable. Bones and soft tissues are unremarkable. Impression: Central pulmonary venous congestive change. Stable cardiomegaly. Reviewed, dictated and finalized at [facility]. EDURES RN Impression: Central pulmonary venous congestive change. Stable cardiomegaly.
[2024-07-12 17:42] VITALS: BP 118/47; PULSE 56; RESP 21; TEMP 36.4; O2SAT 91
--- NOTE | 2024-07-12 17:50 | ECG_ITS ---
Test Date: 2024-07-12 17:53:01 Measurements Intervals [place] Rate: 58 P: 0 AK: 0 QRS: -67 QRSD: 102 T: 38 QT: 443 QTc: 438 Interpretive Statements ATRIAL FIBRILLATION WITH SLOW VENTRICULAR RESPONSE LOW QRS VOLTAGE IN PRECORDIAL LEADS INFERIOR INFARCT, AGE INDETERMINATE EXTENSIVE ANTERIOR INFARCT, AGE INDETERMINATE BORDERLINE ST ABNORMALITY- HIGH LATERAL LEADS BASELINE ARTIFACT- I, II, III, AVR, AVL, V1-V2 ABNORMAL ECG No previous ECG available for comparison Electronically Signed On 07-13-2024 10:35:11 TACTICAL AIR DEFENSE CONTROLLER by Miguel Maguire D.O.
[2024-07-12 18:02] LABS: Basophils Absolute Auto 0.1 K/mm3 (0.0-0.1); Basophils Percent Auto 0.6 % (0.2-1.2); Eosinophils Absolute Auto 0.1 K/mm3 (0-0.3); Eosinophils Percent Auto 1.3 % (0-4.4); Hematocrit 32.9 % (37.0-47.0); Hemoglobin 10.6 g/dL (12.0-15.0); Immature Granulocyte Absolute 0.02 K/mm3 (0.00-0.031); Immature Granulocyte Percent A 0.2 % (0-0.5); Lymphocytes Absolute Auto 0.29 K/mm3 (0.9-3.2); Lymphocytes Percent Auto 3.4 % (18.3-44.2); Mean Corpuscular HGB Conc 32.2 g/dl (32-36); Mean Corpuscular Volume 102.5 fl (80-100); Mean Platelet Volume 10.2 fl (7.4-10.4); Monocytes Absolute Auto 1.1 K/mm3 (0.1-0.6); Monocytes Percent Auto 12.9 % (2.6-8.5); Neutrophils Absolute Auto 6.9 K/mm3 (1.3-6.7); Neutrophils Percent Auto 81.6 % (45.5-73.1); Platelet Count Result 168 k/mm3 (150-375); Red Blood Count 3.21 M/mm3 (4.2-5.4); Red Cell Distribution Width 13.2 % (11.5-14.5); White Blood Count 8.4 K/mm3 (4.5-10.0)
[2024-07-12 18:15] LABS: Alanine Aminotransferase 14 U/L (6-35); Albumin Level 4.1 g/dL (3.5-5.1); Alkaline Phosphatase 68 U/L (38-126); Anion Gap 14 mmol/L (4-12); Aspartate Amino Transferase 24 U/L (14-36); Bilirubin,Total 0.9 mg/dL (0.2-1.3); Blood Urea Nitrogen 67 mg/dL (7-17); Calcium 8.7 mg/dL (8.4-10.2); Carbon Dioxide 27 mmol/L (22-30); Chloride 96 mmol/L (98-107); Estimated CRCL calculation 20 ml/min; Estimated Glomerular Filt Rate 19; Glucose 126 mg/dL (65-110); Potassium 4.5 mmol/L (3.4-5.0); Sodium 137 mmol/L (137-145)
[2024-07-12 18:38] LABS: Influenza A QL RT-PCR Negative (Negative); Influenza B QL RT-PCR Negative (Negative); RSV RNA, RT-PCR Negative (Negative); SARS-CoV-2 RNA PCR Positive (Negative)
[2024-07-12 19:13] LABS: Add Urine Microscopic? YES; Appearance Urine Cloudy (Clear); Bacteria Urine 4+ /hpf; Bilirubin Urine Negative (Negative); Blood Urine Negative (Negative); Budding Yeast Urine Present /hpf; Color Urine Yellow (Yellow); Glucose Urine UA Trace mg/dL (Negative); Hyaline Casts Urine Present /lpf; Ketones Urine Negative (Negative); Leukocyte Esterase Ur 2+ LEU/UL (Negative); Mucus Urine Present /lpf; Need Manual Microscopic Reviewed; Nitrate Urine Positive (Negative); Protein Urine Trace mg/dL (Negative); RBC Urine 51-100 /hpf (0-2); Specific Grav Ur 1.013 (1.001-1.035); Squamous Epithelial Cell Urine None Seen /hpf (Few); Urobilinogen Urine 0.2 mg/dL (<2.0); WBC Urine 21-50 /hpf (0-3)
--- OUTSIDE RECORDS SUMMARY | 2024-07-12 19:16 | XMS_ITS | Clinical Summary ---
Author Organization [facility] [address] Address [address] [place] [address] Care Team Providers Care Geriatric Social Worker Name Role Phone Sandra Gomez MD Primary Care Provider [phone] Allergies Active Allergy Reactions Criticality Noted Date Comments Diclofenac Sodium Unknown 02/22/2023 Griseofulvin Ultramicrosize Itching Low 02/23/20 23 Penicillin G Penicillins Medications apixaban (ELIQUIS) 5 mg tablet Take 1 tablet (5 mg total) by mouth 2 (two) times a day Active montelukast (SINGULAIR) 10 mg tablet Take 1 tablet (10 mg total) by mouth nightly Active polyethylene glycol (MIRALAX) 17 gram/dose bulk powder Take 17 g by mouth daily Active triamcinolone (KENALOG) 0.1 % cream Apply topically 2 (two) times a day Active diltiazem LA (CARDIZEM LA) 180 mg 24 hr tablet Take 1 tablet (180 mg total) by mouth daily Active hydrALAZINE (APRESOLINE) 50 mg tabletIndicatio ns:hypertension Take 1 tablet (50 mg total) by mouth 2 (two) times a day Active doxazosin (CARDURA) 8 mg tablet Take 1 tablet (8 mg total) by mouth nightly Active losartan (COZAAR) 100 mg tablet Take 1 tablet (100 mg total) by mouth daily Active furosemide (LASIX) 40 mg tablet Take 1 tablet (40 mg total) by mouth daily Active metoprolol tartrate (LOPRESSOR) 50 mg immediate release tablet Take 1 tablet (50 mg total) by mouth 2 (two) times a day Active cetirizine (ZyrTEC) 10 mg tablet Take 1 tablet (10 mg total) by mouth daily Active cranberry gork-V-vnxxrymh coag 250-30-15 mg tablet Take by mouth Active metFORMIN (GLUCOPHAGE) 500 mg tablet Take 1 tablet (500 mg total) by mouth 2 (two) times a day with meals Active empagliflozin (JARDIANCE) 25 mg tablet 1 tablet (25 mg total) Active fluticasone propionate (FLONASE) 50 mcg/actuation nasal spray 1 SPRAY INTRANASALLY EVERY 12 HOURS ADMINISTER INTO EACH NOSTRIL Active Active Problems Problem Noted Date Diagnosed Date Atrial fibrillation (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) 07/03/2012 Overview (09/15/2016): DM w/o complication type II Edema 07/03/2012 Overview (09/15/2016): Edema Adiposity 07/03/2012 Overview (09/15/2016): Obesity Surgical History Surgery Date Site/Laterality Comments OTHER SURGICAL HISTORY D & C OTHER SURGICAL HISTORY Fibroids: D&C DILATION AND CURETTAGE OF UTERUS Dilation And Curettage - (Added by TW Conv) Medical History Medical History Date Comments Hypertension Hypertension Hx Other Medical Diabetes Type I I Adiposity Obesity Arthritis Arthritis Hx Other Medical Fibroids Diabetes mellitus (HCC) Diabetes Personal history of other en docrine, nutritional and metabolic disease History of diabetes mellitus - (Added by TW Conv) Personal history of other di seases of the nervous system and sense organs History of glaucom a - (Added by TW Conv) Personal history of other di seases of the circulatory system History of hypertension - (A dded by TW Conv) Atrial fibrillation (CMS/HCC) (HCC) CHF (congestive heart failur e) (CMS/HCC) (HCC) Family History Medical History Relation Name Comments hip surgery Father Other Mother brain tumor - ? 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 Gender Identity Not on file Sexual Orientation Not on file Obstetrics History Last Filed Vital Signs Vital Sign Reading Time Taken Comments Blood Pressure 122/72 11/22/2023 10:48 AM CDT Pulse 57 11/22/2023 10:48 AM CDT Temperature - - Respiratory Rate - - Oxygen Saturation 97% 11/22/2023 10:48 AM CDT Inhaled Oxygen Concentration - - Weight 112.9 kg (249 lb) 11/22/2023 10:48 AM CDT Height 147.3 cm (4' 10 ) 11/22/2023 10:48 AM CDT Body Mass Index 52.04 11/22/2023 10:48 AM CDT Plan of Treatment Health Maintenance Due Date Last Done Comments Albumin Creatinine Ratio, Urine 1944 Depression Screening 1944 Fall Risk Assessment 1944 Hemoglobin A1C 1944 Osteoporosis Screening-Bone Density Scan 1944 eGFR 1944 Dilated Eye Exam 1944 Foot Exam 1944 Hepatitis B Screening 1962 Well Visit 65+ 2009 Zoster Vaccine (2 of 3) 12/20/2010 10/25/2010 Lipid Panel 07/11/2013 07/11/2012 DTaP/Tdap/Td Vaccine (1 - Tdap) 10/13/2015 6, 06/12/2002 Covid-19 Vaccine (3 - 2023-2 5 season) 2024 08/27/2020, 08/04/2020 Influenza Vaccine (#1) 2024 3, 05/03/2021, 02/26/2020, Additional history exists Pneumococcal vaccine 65+ Completed 016, 06/12/2015, 02/10/2010, Additional history exists Procedures Procedure Name Priority Date/Time Associated Diagnosis Comments PLASMA LIPID PANEL Routine 07/11/2012 11 :47 AM BREAD 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 from Last 3 Months or Most Recently Relevant to Health Maintenance Results * (ABNORMAL) Plasma lipid panel (07/11/2012 11:47 AM BREAD 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) Pathologist [facility] Cholesterol 158 140 - 199 mg/dl HISTORICAL RESULTS Triglycerides 95 20 - 150 mg/dl HISTORICAL RESULTS Comment:As of May 21, triglyceride values may be falsely elevated up to 10% due to changes in cable maintainer reagents. Due to the triglyceride elevation, the calculated LDL may be falsely decreased up to 2%. HDL 31(L) 40 - 60 mg/dl HISTORICAL RESULTS LDL 108(H) 65 - 100 mg/dl HISTORICAL RESULTS Comment: Desirable ?Borderline ? High CHOL ?< 200 ? 200 - 239 ?>= 240 mg/dL TRIG ? < 150 ? 150 - 199 ?>= 200 mg/dL HDL ? > ??60 ?40 - ??60 ?<= 40 mg/dL LDL ? < 100 ?130 - 159 ? >= 160 mg/dL Risk Assessment interpretation based on the December 2000 NCEP ATPIII guideline. Chol/HDL ratio 5.1(H) 0.0 - 4.9 HISTO RICAL RESULTS Comment:Effective Monday, A pril 2011, [employer] Laboratory will begin reporting the Total Cholesterol/HDL Ratio Plasma 07/11/2012 11:4 7 AM BREAD 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 us Patrick Morley MD LAB BLOOD ORDERABLES Fin al Result HISTORICAL RESULTS from Last 3 Months or Most Recently Relevant to Health Maintenance Insurance MEDICARE MEDICARE [facility] Care Teams Geriatric Social Worker Relationship Specialty Start Date End Date Sandra Gomez MD PCP - General Family Medicine 11/22/23
--- OUTSIDE RECORDS SUMMARY | 2024-07-12 19:16 | XMS_ITS | Referral Summary ---
Author Organization [facility] [address] Address [address] [place] [address] Care Team Providers Care Business Objects Analyst Name Role Phone Sandra Gomez MD Primary Care Provider Allergies Active Allergy Reactions Criticality Noted Date [...] mg total) by mouth daily Active cranberry kuge-J-iwfrydif coag 250-30-15 mg tablet Take by mouth [...] Problem Noted Date Diagnosed Date Atrial fibrillation ([facility]) 02/22/2023 Hypertension 08/30/2012 Diabetes mellitus 08/30/2012 Glaucoma 08/30/2012 Arthritis 08/01/2012 Overview (09/15/2016): Arthritis 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 Overview (09/17/2016): Bilateral leg weakness Type 2 diabetes mellitus 08/01/2012 Overview (09/15/2016): DM type 2 (diabetes mellitus, type 2) Controlled type 2 diabetes m ellitus without complication ([facility]) 07/03/2012 Overview (09/15/2016): DM w/o complication type II Edema 07/03/2012 Overview (09/15/2016): Edema Adiposity 07/03/2012 Overview (09/15/2016): Obesity Social History Tobacco Use Types Packs/Day Years Used Date Smoking Tobacco: Never Smokeless Tobacco: Never Tobacco Cessation:Counseling Given: Not Answered Alcohol Use Standard Drinks/Week Comments No 0 (1 standard drink = 0.6 oz pur e alcohol) Comments Unknown Sex and Gender Information Value Date Recorded Sex Assigned at Not on file Legal Sex Female 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 Gender Identity Not on file Sexual Orientation Not on file Last Filed Vital Signs Vital Sign Reading [...] 11/22/2023 10:48 AM CDT Plan of Treatment Not on file Procedures Procedure Name Priority Date/Time Associated Diagnosis Comments PLASMA LIPID PANEL Routine 07/11/2012 11 :47 AM FLY 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 from Last 3 Months or Most Recently Relevant to Health Maintenance Results * (ABNORMAL) Plasma lipid panel (07/11/2012 11:47 AM FLY 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) Pathologist [facility] Cholesterol 158 140 - 199 mg/dl HISTORICAL RESULTS Triglycerides 95 20 - 150 mg/dl HISTORICAL RESULTS Comment:As of May 21, triglyceride values may be falsely elevated up to 10% due to changes in construction consultant reagents. Due to the triglyceride elevation, the [...] 0.0 - 4.9 HISTO RICAL RESULTS Comment:Effective Adelina, A pril 2011, [facility] Laboratory will begin reporting the Total Cholesterol/HDL Ratio Plasma 07/11/2012 11:4 7 AM FLY 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 us Patrick Morley MD LAB BLOOD ORDERABLES Fin al Result HISTORICAL RESULTS from Last 3 Months or Most Recently Relevant to Health Maintenance Insurance MEDICARE MEDICARE [facility] [employer] Care Teams Business Objects Analyst Relationship Specialty Start Date End Date Sandra Gomez MD PCP - General Family Medicine 11/22/23
--- OUTSIDE RECORDS SUMMARY | 2024-07-12 19:16 | XMS_ITS | Clinical Summary ---
Author Organization [facility] utiluis alfredo Address [address] [place] [id number] Phone Care Team Providers Care Paper Handler Name Role Phone Sandra Gomez MD Primary Care Provider [phone] Allergies Active Allergy Reactions Criticality Noted Date Comments Penicillins 05/11/2020 Medications Medication Sig Dispensed Refills Start Date End Date Status montelukast (SINGULAIR) 10 MG tablet TAKE 1 TABLET BY MOUTH EVERY DAY 04/14/2020 Active Eliquis 5 MG tablet Take 5 mg by mouth every 12 (twelve) hours 04/20/2020 Active Tiadylt ER 180 MG 24 hr capsule Take by mouth 1 (one) time each day 03/02/2020 Active doxazosin (CARDURA) 8 MG tablet TAKE 1 TABLET BY MOUTH AT BEDTIME DUE FOR APPOINTMENT FOR REFILLS 05/02/2020 Active glimepiride (AMARYL) 4 MG tablet Take 4 mg by mouth 1 (one) time each day in the morning 04/28/2020 Active OneTouch Ultra test strip USE TO CHECK BLOOD SUGAR UP TO THREE TIMES DAILY NEEDED FOR FLUCTUATING BLOOD SUGARS 04/27/2020 Active hydrALAZINE (APRESOLINE) 50 MG tablet Take 50 mg by mouth 2 (two) times a day 03/23/2020 Active irbesartan (AVAPRO) 300 MG tablet Take 300 mg by mouth 1 (one) time each day 03/14/2020 Active metFORMIN (GLUCOPHAGE) 1000 MG tablet TAKE 1 TAB BY MOUTH DAILY WITH EVENING MEAL 04/18/2020 Active metoprolol tartrate (LOPRESSOR) 100 MG tablet TAKE 1/2 TAB BY MOUTH TWICE DAILY 04/18/2020 Active omega-3 (FISH OIL) 1000 MG capsule Take 1,000 mg by mouth 1 (one) time each day Active tolnaftate (TINACTIN) 1 % powder APPLY TO AFFECTED AREA TOPICALLY EVERY 12 HOURS 05/08/2020 Active fluticasone (FLONASE) 50 MCG/ACT nasal spray SPRAY 1 SPRAY INTO EACH NOSTRIL EVERY 12 HOURS 10/30/2021 Active furosemide (LASIX) 40 MG tablet Take 40 mg by mouth every other day Active Active Problems Problem Noted Date Diagnosed Date Stage 3b chronic kidney disease 02/17/2021 Persistent proteinuria 08/07/2020 Hypertension 08/30/2012 Arthritis 08/01/2012 Overview (05/11/2020): Arthritis Edema 07/03/2012 Overview (05/11/2020): Edema Type 2 diabetes mellitus wit h diabetic chronic kidney disease 07/03/2012 Overview (05/11/2020): DM type 2 (diabetes mellitus, type 2) DM w/o complication type II Immunizations Name Administration Dates Next Due Fluzone High-Dose 02/26/2020 Pneumococcal Conjugate 02/10/2010 Family History Medical History Relation Comments Kidney disease Neg Hx Social History Tobacco Use Types Packs/Day Years Used Date Smoking Tobacco: Never Smokeless Tobacco: Never Alcohol Use Standard Drinks/Week Comments Not Currently 0 (1 standard drink = 0.6 oz pur e alcohol) Sex and Gender Information Value Date Recorded Sex Assigned at Not on file Gender Identity Not on file Sexual Orientation Not on file Last Filed Vital Signs Vital Sign Reading Time Taken Comments Blood Pressure 108/60 12/27/2021 1:43 PM CDT Pulse 72 12/27/2021 1:43 PM CDT Temperature 37.1 ??C (98.7 ??F) 12/27/2021 1:43 PM CD T Respiratory Rate - - Oxygen Saturation - - Inhaled Oxygen Concentration - - Weight 127 kg (280 lb) 12/27/2021 1:43 PM CDT Height 147.3 cm (4' 10 ) 12/27/2021 1:43 PM CDT Body Mass Index 58.52 12/27/2021 1:43 PM CDT Plan of Treatment Health Maintenance Due Date Last Done Comments Pneumococcal PPSV23/PCV13 65 + Years / Low and Medium Risk (1 of 4 - PCV) 2009 Influenza Vaccine (#1) 2024 Care Teams Paper Handler Relationship Specialty Start Date End Date Sandra Gomez MD [address] [place] [address] PCP - General Internal Medicine 02/17/21
--- OUTSIDE RECORDS SUMMARY | 2024-07-12 19:16 | XMS_ITS | Continuity of Care Document ---
Author Organization [facility] Address [address] [place] [address] Phone Care Team Providers Care Director Quality Assurance Name Role Phone Waqas Aviles Unavailable Unavailable Procedures Procedure Date Office/outpatient Visit, Est Optic Nerve Head Eval IPO Reduced 15% Visual Field Examination-Professional Oc Visual Field Examination(s) Eye Exam & Treatment Optic Nerve Head Eval IPO Reduced 15% Dilated Retinal Exam W Interpretation Ju Refraction Office/outpatient Visit, Est Visual Field Examination(s) Office/outpatient Visit, Est Visual Field Examination(s) Office/outpatient Visit, Est Office/outpatient Visit, Est Eye Exam & Treatment Refraction Eye Exam Established Pt Visual Field Examination(s) Office/outpatient Visit, Est Fundus Photography W/ Report Advance Directives Directive Yes / No Effective Date File Name No Information Encounters Encounter Description Practice Location Reason(s) For Visit Diagnoses Date Provider Providers Copied on Encounter Office/outpat ient Visit, Est [facility], [address], [place], [place], [id number], [place] tel:[phone] [facility] No Information Oct-1 1-201 0 Traci Alan. [address] , [address], [place], [place], [facility], [place]. tel:[phone] [facility], [address] [place] [address] [address], [place], [place], [id number], tel:[phone] [facility] No Information - 0 Traci Alan. [address] [place], [place] [address]ate Center , [address], [place], [place], [facility], [place]. tel:[phone] Referring Provider: Waqas Stewart, [address] [place], [place] [address], [place], [place], [facility]. tel:[phone] [facility], [address] [place] [address] [address], [place], [place], [id number], [place] tel:[phone] [facility] [place] No Information 0 Traci Alan. [address] [place] [address] , [address], [place], [place], [facility], [place]. tel:[phone] Referring Provider: Waqas Stewart, [address] [place], [place] [address], [place], [place], [facility]. tel:[phone] [facility], [address] [place] [address] [address], [place], [place], [id number], [place] tel:[phone] [facility] No Information 0 Krishnasamy Agusto. [address] [place] [address] [address], [place], [facility], [place]. tel:[phone] Office/outpat ient Visit, Est [facility], [address] [place] [address] [address], [place], [place], [id number], [place] tel:[phone] [facility] [place] No Information 0 Krishnasamy Agusto. [address] [place] [address] [address], [place], [facility], [place]. tel:[phone] [facility], [address] [place] [address] [address], [place], [place], [id number], [place] tel:[phone] [facility] [place] No Information Sep-1 8-200 9 Krishnasamy Agusto. [address] [facility] [address], [place], [facility], [place]. tel:[phone] Referring Provider: Agusto redd, [address] [place], [place] [address]ate Center [facility] [address], [place], [place], [facility]. tel:[phone] Office/outpat ient Visit, [facility], [address] [place] [address] [address], [place], [place], [id number], [place] tel:[phone] SEC [facility] No Information Elder-2 9-200 9 Krishnasamy Agusto. [address] [place], [place] [address], [facility], [place]. tel:[phone] [facility], [address] [place] [address] [address], [place], [place], [id number], [place] tel:[phone] [facility] No Information Sep-1 5-200 8 Krishnasamy Agusto. [address] [place], [place] [address]ate [facility] [address], [place], [facility], [place]. tel:[phone] Referring Provider: Agusto redd, [address] [place], [place] [address]ate [facility] [address], [place], [place], [facility]. tel:[phone] [facility]pat ient [facility], [facility], [address] [place] [address] [address], [place], [place], [id number], [place] tel:[phone] [facility] No Information October- 2-200 8 Krishnasamy Agusto. [facility] [address], [place], [facility], [place]. tel:[phone] Office/outpat ient Visit, [facility], [address] [place] [address] [address], [place], [place], [id number], [place] tel:[phone] [facility] No Information 1-200 8 Krishnasamy Agusto. [address], [place], [facility], [place]. tel:[phone] [facility], [address], [place], [place], [id number], [place] tel:[phone] [facility] [place] No Information 0-200 8 Krishnasamy Agusto. [address], [place], [facility], [place]. tel:[phone] [facility], [address] [place] [address] [address], [place], [place], [id number], [place] tel:[phone] [facility] [place] No Information 4-200 8 Traci Alan. [address] [place], [place] [address]ate Center , [address], [place], [facility], [place]. tel:[phone] [facility], [address], [place], [place], [id number], [place] tel:[phone] [facility] No Information 0-200 7 Traci Alan. [facility] , [address], [place], [facility], [place]. tel:[phone] Referring Provider: [address], [place], [facility]. tel:[phone] Office/outpat ient Visit, [facility], [address], [place], [place], [id number], [place] tel:[phone] [facility] [place] No Information Sep-2 3-200 7 Traci Alan. [facility] , [address], [place], [facility], [place]. tel:[phone] Referring Provider: [address], [place], [address]. tel:[phone] Family History Family Member Type Diagnosis Age At Onset No Information Payers Payer name Insurance type Covered green party ID Authoriza tion(s) Medicare [facility] [id number] [facility] [id number] Social History Type Description Quantity Date Captured Comments Sex Female Smoking Status No Information Chief Complaint And Reason For Visit No Information Reason For Referral Reason For Referral No Information History Of Present Illness Encounter Date Complaint History Of Prese nt Illness No Information Functional Status Date Functional Assessmen t No Information Instructions Date Instruction Additional Infor mation No Information Assessments Type Assessment Date No Information Patient Care Teams Name Effective Dates (start - stop) Status Members No Information
--- OUTSIDE RECORDS SUMMARY | 2024-07-12 19:16 | XMS_ITS | Clinical Summary ---
Author Organization [facility] esthela [facility] Address [address] [place] [address] Care Team Providers Care Buckle Attaching Machine Operator Name Role Phone Unavailable Primary Care Provider Unavailabl e Allergies Active Allergy Reactions Criticality Noted Date Comments Penicillins Unknown 05/11/2020 Medications Eliquis 5 mg tablet Take 5 mg by mouth every 12 hours. 2 Active hydrALAZINE (APRESOLINE) 50 mg tablet Take 50 mg by mouth 2 times daily. 2 Active metoprolol tartrate (LOPRESSOR) 100 mg tablet BREAK 100 MG TABLET IN HALF AND TAKE 1/2 TABLET BY MOUTH TWICE A DAY 2 Active furosemide (LASIX) 40 mg tablet Take 40 mg by mouth daily. 2 Active glimepiride (AMARYL) 4 mg tablet Take 4 mg by mouth daily in the morning. 2 Active Irbesartan (AVAPRO) 300 mg tablet Take 300 mg by mouth daily. 2 Active Tiadylt ER 180 mg Extended Release capsule TAKE 1 CAPSULE BY MOUTH EVERY DAY MUST CALL TO MAKE BLOOD PRESSURE FOLLOW UP 2 Active montelukast (SINGULAIR) 10 mg tablet Take 10 mg by mouth daily. 2 Active metFORMIN (GLUCOPHAGE) 1,000 mg tablet TAKE 1 TABLET BY MOUTH EVERY DAY. TAKE WITH EVENING MEAL. 2 Active doxazosin (CARDURA) 8 mg tablet Take 8 mg by mouth daily at bedtime. 2 Active fluticasone propionate (FLONASE) 50 mcg/spray [place], Suspension nasal inhaler SPRAY 1 SPRAY INTO EACH NOSTRIL EVERY 12 HOURS 2 Active Mobile Actionuch Ultra Test Strip USE TO CHECK BLOOD SUGAR UP TO THREE TIMES DAILY NEEDED FOR FLUCTUATING BLOOD SUGARS 2 Active Active Problems Problem Noted Date Diagnosed Date Anemia of chronic renal failure, stage 3 (modera te) 02/02/2022 Family History Medical History Relation Name Comments Cancer Mother Diabetes Mother Diabetes Sister Relation Name Status Comments Brother Alive Father Mother Sister Social History Tobacco Use Types Packs/Day Years Used Date Smoking Tobacco: Never Smokeless Tobacco: Never Tobacco Cessation:Counseling Given: Not Answered Alcohol Use Standard Drinks/Week Comments Never 0 (1 standard drink = 0.6 oz pur e alcohol) Comments Unknown Sex and Gender Information Value Date Recorded Sex Assigned at Not on file Legal Sex Female 1:52 PM CDT Gender Identity Not on file Sexual Orientation Not on file Last Filed Vital Signs Vital Sign Reading Time Taken Comments Blood Pressure 145/65 02/02/2022 10:36 AM CDT Pulse 66 02/02/2022 10:36 AM CDT Temperature 36.7 ??C (98 ??F) 02/02/2022 10:36 AM CDT Respiratory Rate - - Oxygen Saturation 96% 02/02/2022 10:36 AM CDT Inhaled Oxygen Concentration - - Weight - - Height 152.4 cm (5') 02/02/2022 10:36 AM CDT Body Mass Index - - Plan of Treatment Health Maintenance Due Date Last Done Comments DIABETES ANNUAL FOOT EXAM 1962 DIABETES ANNUAL RETINAL EXAM 1962 DIABETES HBA1C Q 6 MONTHS 1962 DIABETES MICROALBUMIN ANNUAL SCREEN 1962 LDL CHOLESTEROL ANNUAL 1962 DTAP/TDAP/TD VACCINES (1 - Tdap) 1963 PNEUMOCOCCAL VACCINE 65+ YEARS (1 of 2 - PCV) 05/25/19 63 02/10/2010 ZOSTER VACCINE (1 of 2) 1994 OSTEOPOROSIS SCREENING 2009 RSV VACCINE (60+ or ) (1 - 1-dose 75+ series) 2019 INFLUENZA VACCINE (#1) 2024 [place] [address] MEDICARE PART A AND B [facility]
--- NOTE | 2024-07-12 20:00 | ED_ITS ---
HPI - General Adult General Chief complaint: Weakness Stated complaint: weakness, bradycardic Time Seen by Provider: 07/12/24 19:09 History of Present Illness HPI narrative: Patient is an 79-year-old female who presents ER with weakness and bradycardia. Patient reports over last 2 days she has been having cough with subjective fever. Lives in a facility. No chest pain or chest pressure. Occasional shortness of breath with coughing. Reports her heart rate was low at the facility and they thought she should be evaluated. No syncope or dizziness. Patient does have irregular heartbeat. She is on apixaban and metoprolol. Related Data Home Medications ?Medication ?Instructions ?Recorded ?Confirmed ?Last Taken ?Type cetirizine 10 mg tablet (Zyrtec) 10 mg PO DAILY PRN allergy symptoms 11/08/22 07/12/24 Unknown History ascorbate calcium (vitamin C) 500 500 mg PO DAILY 08/08/23 07/12/24 07/12/24 History mg tablet docosahexaenoic acid 200 mg 200 mg PO DAILY 08/08/23 07/12/24 07/12/24 History capsule (Algal [place]-3 DHA) mecobalamin (vitamin B12) 1,000 1,000 mcg PO DAILY 08/08/23 07/12/24 07/12/24 History mcg chewable tablet metoprolol tartrate 50 mg tablet 50 mg PO BID 08/08/23 07/12/24 Unknown History pyridoxine (vitamin B6) 100 mg 100 mg PO DAILY 08/08/23 07/12/24 07/12/24 History tablet montelukast 10 mg tablet 10 mg PO HS 07/12/24 07/12/24 07/11/24 History Allergies Allergy/AdvReac Type Severity Reaction Status Date / Time diclofenac Allergy Unknown Unknown Verified 03/05/24 10:18 griseofulvin Allergy Unknown Rash Verified 03/05/24 10:18 Penicillins Allergy Unknown Unknown Verified 03/05/24 10:18 Wggxdqr-XAY-InC Reductase Allergy Unknown Unknown Verified 03/05/24 10:18 Inhibitor (Ihvsvck-Epv-Jgv Reductase Inhibitor) Sulfa (Sulfonamide Allergy Unknown Unknown Verified 03/05/24 10:18 Antibiotics) GRISEOFULVIN ULTRAMICROSIZE Allergy Unknown Rash Uncoded 03/05/24 10:18 Review of Systems 2 Review of Systems: All systems reviewed & are unremarkable except as noted in HPI and below Constitutional: Constitutional: Reports no additional constitutional complaints Cardiovascular: Cardiovascular: Reports no additional cardiovascular complaints Respiratory: Respiratory: Reports no additional respiratory complaints Gastrointestinal: Gastrointestinal: Reports no additional gastrointestinal complaints [facility] Past Medical History Medical History Arthritis Atrial fibrillation Cataracts, bilateral CHF (congestive heart failure) Diabetes Escherichia coli urinary tract infection Glaucoma Heart murmur HTN (hypertension) Hyperlipidemia Impacted cerumen of both ears JOSE on CPAP Poor personal hygiene Post-menopausal Seasonal allergies UTI (urinary tract infection) Surgical History Surgical History History of dilation and curettage Hx of cervical spine surgery Family History Family History Father Diabetes mellitus Mother Hypertension Social History Social History Social History: The patient is single and has no children. 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 Her niece Aristeo whitt is the durable power claim attorney for healthcare. The patient is lifelong nonsmoker. She does not use any alcohol marijuana or illicit drugs. Full code Smoking status: Never smoker Second hand tobacco smoke exposure: No Alcohol intake: never Substance use: never Substance use type: does not use Do You Feel Safe in your Home?: Yes Lack of Transportation: No Lack of Food: Never True Current Housing: I Have Housing Concerned About Future Housing: No Difficulty Paying Gas/Electric Bills: No Difficulty Paying for Meds: No Currently Unemployed: No Education: Associate Degree Difficulty w/ Childcare or Family Care: No Living arrangements: alone Additional living arrangements comments: [facility] COMES IN 3 MORNINGS PER WEEK. Occupation/Education: retired Gender identity (if verbalized by the patient): Female Spiritual care concerns: No Agree to blood products: Yes Exam 2 Narrative: GENERAL: Well-appearing, morbidly obese, and in no acute distress. HEAD: Normocephalic, atraumatic. ENT: Mucous membranes moist. NECK: Supple. CHEST: Clear to auscultation. No respiratory distress. HEART: Bradycardic and irregular. Normal peripheral pulses. ABDOMEN: Soft, nontender, nondistended, normal active bowel sounds. EXTREMITIES: Normal range of motion. 3+ edema with chronic venous stasis changes. SKIN: Warm, dry, no rash. NEURO: NAlert and oriented x3. PSYCH: Normal mood and affect. Course Course Emergency Course: A admit to hospitalist service. Patient wear of diagnosis and treatment plan. Heart rate and improving and is staying in the 50s. Vital Signs Vital signs: Vital Signs Temperature 97.6 F 07/12/24 17:42 Pulse Rate 56 L 07/12/24 17:42 Respiratory Rate 21 H 07/12/24 17:42 Blood Pressure 118/47 L 07/12/24 17:42 Pulse Oximetry 91 07/12/24 17:42 Oxygen Delivery Room Air 07/12/24 17:42 Temperature 98.5 F 07/13/24 06:00 Pulse Rate 66 07/13/24 06:00 Respiratory Rate 18 07/13/24 06:00 Blood Pressure 117/89 07/13/24 06:00 Pulse Oximetry 94 07/13/24 06:00 Oxygen Delivery Nasal Cannula 07/12/24 21:20 Oxygen Flow Rate 2 07/12/24 21:20 Medical Decision Making Vital Signs Vital Signs: Vital Signs Temperature 97.6 F 07/12/24 17:42 Pulse Rate 56 L 07/12/24 17:42 Respiratory Rate 21 H 07/12/24 17:42 Blood Pressure 118/47 L 07/12/24 17:42 Pulse Oximetry 91 07/12/24 17:42 Oxygen Delivery Room Air 07/12/24 17:42 Temperature 98.5 F 07/13/24 06:00 Pulse Rate 66 07/13/24 06:00 Respiratory Rate 18 07/13/24 06:00 Blood Pressure 117/89 07/13/24 06:00 Pulse Oximetry 94 07/13/24 06:00 Oxygen Delivery Nasal Cannula 07/12/24 21:20 Oxygen Flow Rate 2 07/12/24 21:20 Lab Data 07/12/24 17:56 07/12/24 17:56 Labs: Lab Results 07/12/24 07/12/24 Range/Units 17:56 18:33 WBC 8.4 (4.5-10.0) K/mm3 RBC 3.21 L (4.2-5.4) M/mm3 Hgb 10.6 L (12.0-15.0) g/dL Hct 32.9 L (37.0-47.0) % MCV 102.5 H (80-100) fl MCH 33.0 (26-34) pg MCHC 32.2 (32-36) g/dl RDW 13.2 (11.5-14.5) % Plt Count 168 (150-375) k/mm3 MPV 10.2 (7.4-10.4) fl Immature Gran % (Auto) 0.2 (0-0.5) % Neut % (Auto) 81.6 H (45.5-73.1) % Lymph % (Auto) 3.4 L (18.3-44.2) % [place] % (Auto) 12.9 H (2.6-8.5) % Eos % (Auto) 1.3 (0-4.4) % Baso % (Auto) 0.6 (0.2-1.2) % Lymph # (Auto) 0.29 L (0.9-3.2) K/mm3 [place] # (Auto) 1.1 H (0.1-0.6) K/mm3 Eos # (Auto) 0.1 (0-0.3) K/mm3 Baso # (Auto) 0.1 (0.0-0.1) K/mm3 Abs Immat Gran (auto) 0.02 (0.00-0.031) K/mm3 Absolute Neuts (auto) 6.9 H (1.3-6.7) K/mm3 Absolute Nucleated RBC 0.000 (0.0-0.012) K/mm3 Nucleated RBC % 0.0 (0.0-0.2) % Sodium 137 (137-145) mmol/L Potassium 4.5 (3.4-5.0) mmol/L Chloride 96 L (98-107) mmol/L Carbon Dioxide 27 (22-30) mmol/L Anion Gap 14 H (4-12) mmol/L BUN 67 H D (7-17) mg/dL Creatinine 2.40 H (0.7-1.0) mg/dL Estim Creat Clear Calc 20 ml/min Estimated GFR 19 L (59 - ) Glucose 126 H (65-110) mg/dL Calcium 8.7 (8.4-10.2) mg/dL Total Bilirubin 0.9 (0.2-1.3) mg/dL AST 24 (14-36) U/L ALT 14 (6-35) U/L Alkaline Phosphatase 68 (38-126) U/L Total Protein 7.0 (6.3-8.2) g/dL Albumin 4.1 (3.5-5.1) g/dL Urine Color Yellow (Yellow) Urine Appearance Cloudy H (Clear) Urine pH 5.0 (5.0-9.0) Ur Specific [place] 1.013 (1.001-1.035) Urine Protein Trace (Negative) mg/dL Urine Glucose (UA) Trace H (Negative) mg/dL Urine Ketones Negative (Negative) mg/dL Ur Blood (Man) Negative (Negative) Urine Nitrate Positive H (Negative) Urine Bilirubin Negative (Negative) Urine Urobilinogen 0.2 (<2.0) mg/dL Add Ur Microanalysis Reviewed Leukocyte Esterase Rfl 2+ H (Negative) JOVANA/UL Urine RBC 51-100 H (0-2) /hpf Urine WBC 21-50 H (0-3) /hpf Ur Squamous Epith Cells None seen (Few) /hpf Urine Bacteria 4+ H /hpf Urine Casts 3-5 Hyaline Casts Present (None) /lpf Urine Mucus Present /lpf Urine Yeast (Budding) Present H (None) /hpf Influenza A (RT-PCR) Negative (Negative) Influenza B (RT-PCR) Negative (Negative) RSV (RT-PCR) Negative (Negative) SARS-CoV-2 RNA (RT-PCR) Positive A (Negative) Imaging Data Radiologist's impression: ITS Impressions Chest X-Ray 07/12/24 18:09 IMPRESSION: No focal infiltrate or effusion. ECG Data EKG #1: ECG completion date: 07/12/24 ECG completion time: 17:53 EKG Interpretation: bradycardia (58), atrial fibrillation, normal QRS, normal QT and left axis Discharge Plan Discharge Clinical Impression: Acute UTI, RIMMA (acute kidney injury), COVID, Bradycardia Patient Disposition: Still a Patient Condition: Stable
[2024-07-12] MEDS: SODIUM CHLORIDE 0.9% IV 1,000 ML 999 ML IV CONT (20:01)
[2024-07-12 20:02] VITALS: BP 114/52; PULSE 54; RESP 14; O2SAT 97
[2024-07-12 20:09] VITALS: O2SAT 90; O2SAT 97
[2024-07-12 21:01] VITALS: BP 104/54; PULSE 54; RESP 15; O2SAT 99
[2024-07-12 21:20] VITALS: O2SAT 100
--- NOTE | 2024-07-12 21:22 | P.HP_ITS ---
H&P: HPI History of Present Illness Date/Time: 07/12/24 21:22 Chief Complaint: Shortness of breath Narrative: This is an 79-year-old female with past medical history significant for chronic lymphedema, obesity, atrial fibrillation rate controlled and anticoagulated, hypertension, chronic kidney disease. Patient comes to the emergency room due to generalized malaise, fevers, chills for several days. Patient denies any nausea vomiting had episode of diarrhea. Preliminary workup was significant for urinalysis numerous wbc's present. Patient has been admitted for further evaluation management and treatment. CHEST RADIOGRAPH CLINICAL HISTORY: weakness . COMPARISON: 06/29/2022 TECHNIQUE: Single portable view of the chest. FINDINGS The cardiomediastinal silhouette is enlarged, unchanged. The lungs are clear. IMPRESSION: No focal infiltrate or effusion. Review of Systems Review of Systems: Generalized malaise, fevers, chills, generalized weakness PMFSH Past Medical History Medical History Arthritis Atrial fibrillation Cataracts, bilateral CHF (congestive heart failure) Diabetes Escherichia coli urinary tract infection Glaucoma Heart murmur HTN (hypertension) Hyperlipidemia Impacted cerumen of both ears JOSE on CPAP Poor personal hygiene Post-menopausal Seasonal allergies UTI (urinary tract infection) Surgical History Surgical History History of dilation and curettage Hx of cervical spine surgery Family History Family History Father Diabetes mellitus Mother Hypertension Social History Social History Social History: The patient is single and has no children. 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 Her niece Aristeo whitt is the durable power insurance defense attorney for healthcare. The patient is lifelong nonsmoker. She does not use any alcohol marijuana or illicit drugs. Full code Smoking status: Never smoker Second hand tobacco smoke exposure: No Alcohol intake: never Substance use: never Substance use type: does not use Do You Feel Safe in your Home?: Yes Lack of Transportation: No Lack of Food: Never True Current Housing: I Have Housing Concerned About Future Housing: No Difficulty Paying Gas/Electric Bills: No Difficulty Paying for Meds: No Currently Unemployed: No Education: Associate Degree Difficulty w/ Childcare or Family Care: No Living arrangements: alone Additional living arrangements comments: [facility] COMES IN 3 MORNINGS PER WEEK. Occupation/Education: retired Gender identity (if verbalized by the patient): Female Spiritual care concerns: No Agree to blood products: Yes Meds Home Medications and Allergies Home Medications ?Medication ?Instructions ?Recorded ?Confirmed ?Type cetirizine 10 mg tablet (Zyrtec) 10 mg PO DAILY PRN allergy symptoms 11/08/22 07/12/24 History ascorbate calcium (vitamin C) 500 500 mg PO DAILY 08/08/23 07/12/24 History mg tablet docosahexaenoic acid 200 mg 200 mg PO DAILY 08/08/23 07/12/24 History capsule (Algal Renick-3 DHA) mecobalamin (vitamin B12) 1,000 1,000 mcg PO DAILY 08/08/23 07/12/24 History mcg chewable tablet metoprolol tartrate 50 mg tablet 50 mg PO BID 08/08/23 07/12/24 History pyridoxine (vitamin B6) 100 mg 100 mg PO DAILY 08/08/23 07/12/24 History tablet blood sugar diagnostic (OneTouch #100 ea 10/16/23 07/12/24 Rx Ultra Test strips) furosemide 40 mg tablet 40 mg PO DAILY #90 tabs 01/16/24 07/12/24 Rx metoprolol tartrate 100 mg tablet 50 mg (1/2 x 100 mg) PO BID #90 01/16/24 07/12/24 Rx tabs apixaban 5 mg tablet (Eliquis) 5 mg PO Q12HR #60 tabs 01/29/24 07/12/24 Rx hydralazine 50 mg tablet 50 mg PO BID #180 tabs 03/31/24 07/12/24 Rx doxazosin 8 mg tablet 8 mg PO HS #90 tabs 04/18/24 07/12/24 Rx losartan 100 mg tablet 100 mg PO DAILY #90 tabs 04/18/24 07/12/24 Rx diltiazem HCl 180 mg capsule,24 180 mg PO DAILY #90 caps 05/29/24 07/12/24 Rx hr,extended release (Tiadylt ER) empagliflozin 25 mg tablet 25 mg PO QAM #90 tabs 06/18/24 07/12/24 Rx montelukast 10 mg tablet 10 mg PO HS 07/12/24 07/12/24 History Allergies Allergy/AdvReac Type Severity Reaction Status Date / Time diclofenac Allergy Unknown Unknown Verified 03/05/24 10:18 griseofulvin Allergy Unknown Rash Verified 03/05/24 10:18 Penicillins Allergy Unknown Unknown Verified 03/05/24 10:18 Novnyij-FVP-NgW Reductase Allergy Unknown Unknown Verified 03/05/24 10:18 Inhibitor (Rkkzuhs-Rwe-Bqg Reductase Inhibitor) Sulfa (Sulfonamide Allergy Unknown Unknown Verified 03/05/24 10:18 Antibiotics) GRISEOFULVIN ULTRAMICROSIZE Allergy Unknown Rash Uncoded 03/05/24 10:18 Vital Signs Vital Signs - 24 hr 07/12/24 17:42 07/12/24 20:02 07/12/24 20:09 Temperature 97.6 F Pulse Rate 56 L 54 L Respiratory Rate 21 H 14 Blood Pressure 118/47 L 114/52 L Pulse Oximetry 91 97 90 Oxygen Delivery Room Air Room Air Oxygen Flow Rate 07/12/24 20:09 07/12/24 21:01 Temperature Pulse Rate 54 L Respiratory Rate 15 Blood Pressure 104/54 L Pulse Oximetry 97 99 Oxygen Delivery Nasal Cannula Oxygen Flow Rate 2 Exam Narrative: Patient is laying in bed Const: General: comfortable, no acute distress, well developed, alert, awake, ill appearing acutely and obese Nutritional Appearance: obese Orientation/consciousness: patient oriented x3 HENMT: Head: normal to inspection, normocephalic and atraumatic Ears: hearing grossly normal bilaterally Face/Nose/Sinus: normal facial exam Face and sinus: normal facial exam Eyes: General: appearance normal, both eyes and all related structures Pupils: Equal, round and reactive pupils present EOM: EOMs intact bilaterally Neck: Neck: full ROM, no lymphadenopathy and no JVD Thyroid: thyroid normal Lymphatic: no lymphadenopathy noted Resp: Effort & Inspection: normal respiratory effort and able to speak in complete sentences Auscultation: wheezes Cardio: Jugular venous distension: no JVD Rate: regular rate Rhythm: regular rhythm Heart sounds: S1 normal heart sound present and S2 normal heart sound present GI: Inspection: Pannus present GI Palp: Yes Soft to palpation and Yes No hepatosplenomegaly present : General: Yes deferred Skin: Wounds: no wounds Other: Chronic skin changes and discoloration bilateral lower extremity Neuro: General: patient oriented x3 and CN's II-XI intact bilaterally Cranial nerves: Yes CN's II-XII intact bilaterally and Yes Equal, round and reactive pupils present Cognition (Neuro): normal cognition Speech: normal speech Gait exam (Neuro): Unable to assess gait Motor exam (neuro): 5/5 motor strength present throughout Extrem: General: normal to inspection, full ROM, no joint enlargement and no pedal edema Other: Chronic bilateral lower extremity swelling skin changes and discoloration H&P: Results Labs Labs: Short CBC 07/12/24 Range/Units 17:56 WBC 8.4 (4.5-10.0) K/mm3 Hgb 10.6 L (12.0-15.0) g/dL Hct 32.9 L (37.0-47.0) % Plt Count 168 (150-375) k/mm3 BMP 07/12/24 17:56 Sodium 137 Potassium 4.5 Chloride 96 L Carbon Dioxide 27 BUN 67 H D Creatinine 2.40 H Glucose 126 H Calcium 8.7 Liver Function 07/12/24 Range/Units 17:56 Total Bilirubin 0.9 (0.2-1.3) mg/dL AST 24 (14-36) U/L ALT 14 (6-35) U/L Alkaline Phosphatase 68 (38-126) U/L Albumin 4.1 (3.5-5.1) g/dL Urine 07/12/24 Range/Units 18:33 Urine Color Yellow (Yellow) Urine Appearance Cloudy H (Clear) Urine pH 5.0 (5.0-9.0) Ur Specific [place] 1.013 (1.001-1.035) Urine Protein Trace (Negative) mg/dL Urine Glucose (UA) Trace H (Negative) mg/dL Assessment and Plan Assessment and plan (1) UTI (urinary tract infection): Code(s): N39.0 - Urinary tract infection, site not specified Status: Acute Assessment and Plan: Admit to regular medical floor Patient started on Rocephin Await cultures (2) HTN (hypertension): Qualifiers: Hypertension type: essential hypertension Qualified Code(s): I10 - Essential (primary) hypertension Code(s): I10 - Essential (primary) hypertension Status: Acute Assessment and Plan: Holding losartan (3) Atrial fibrillation: Qualifiers: Atrial fibrillation type: longstanding persistent Qualified Code(s): I48.11 - Longstanding persistent atrial fibrillation Code(s): I48.91 - Unspecified atrial fibrillation Status: Acute Assessment and Plan: Rate controlled anticoagulated Continue diltiazem Continue apixaban (4) Morbid obesity with BMI of 50.0-59.9, adult: Code(s): E66.01 - Morbid (severe) obesity due to excess calories; Z68.43 - Body mass index [BMI] 50.0-59.9, adult Status: Acute Assessment and Plan: 1800 calorie restricted diet (5) Chronic kidney disease (CKD): Qualifiers: Chronic kidney disease stage: stage 3 (moderate) Chronic kidney disease stage 3 subtype: stage 3b (GFR 30-44) Qualified Code(s): N18.32 - Chronic kidney disease, stage 3b Code(s): N18.9 - Chronic kidney disease, unspecified Status: Acute Assessment and Plan: Creatinine is increased Holding losartan Continue to monitor (6) JOSE on CPAP: Code(s): G47.33 - Obstructive sleep apnea (adult) (pediatric); Z99.89 - Dependence on other enabling machines and devices Status: Acute Assessment and Plan: CPAP at nighttime (7) Chronic acquired lymphedema: Code(s): I89.0 - Lymphedema, not elsewhere classified Status: Acute Assessment and Plan: Wound care consult (8) RIMMA (acute kidney injury): Code(s): N17.9 - Acute kidney failure, unspecified Status: Acute Assessment and Plan: Holding losartan Daily intake and output Renal ultrasound Hospitalist MIPS Advance Care Plan I have confirmed that the patient's Advanced Care Plan is present, code status is documented, or surrogate decision maker is listed in patient medical record.: Yes Medication Reconciliation I have utilized all available resources to obtain, update and review the patients current medications (includes all prescriptions, OTC, herbals, cannabis, and nutritional supplements).: Yes
[2024-07-12 21:27] VITALS: BMI 51.0
--- NOTE | 2024-07-12 21:54 | ADMGEN ---
This patient, Corinne Hill, was admitted to Medical Room 244-. Patient/family oriented to hospital policies and general routines including ID bracelet, bed and alarms, visiting hours, pain management, procedures, bathroom and other care routines, personal items, smoking policy, room service/diet, and visiting hours. Information on how to activate the Rapid Response Team has been discussed. Patient/Family are encouraged to report perceived risks to care and to ask questions if they do not understand what they are told or what they should do.
[2024-07-12 22:00] VITALS: BP 118/44; PULSE 60; RESP 18; TEMP 36.8; O2SAT 100
[2024-07-13] VITALS (19 sets, daily range): BP systolic 110–144; BP diastolic 30–89; PULSE 54–81; RESP 16–22; TEMP 36.7–37.2; O2SAT 92–99
[2024-07-13 08:11] LABS: Basophils Percent Auto 0.8 % (0.2-1.2); Eosinophils Absolute Auto 0.1 K/mm3 (0-0.3); Eosinophils Percent Auto 1.3 % (0-4.4); Hematocrit 32.2 % (37.0-47.0); Hemoglobin 10.4 g/dL (12.0-15.0); Immature Granulocyte Absolute 0.01 K/mm3 (0.00-0.031); Immature Granulocyte Percent A 0.2 % (0-0.5); Lymphocytes Absolute Auto 0.38 K/mm3 (0.9-3.2); Lymphocytes Percent Auto 7.2 % (18.3-44.2); Mean Corpuscular HGB Conc 32.3 g/dl (32-36); Mean Corpuscular Hemoglobin 32.8 pg (26-34); Mean Corpuscular Volume 101.6 fl (80-100); Mean Platelet Volume 10.1 fl (7.4-10.4); Monocytes Absolute Auto 0.8 K/mm3 (0.1-0.6); Monocytes Percent Auto 15.5 % (2.6-8.5); Platelet Count Result 165 k/mm3 (150-375); Red Blood Count 3.17 M/mm3 (4.2-5.4); Red Cell Distribution Width 13.2 % (11.5-14.5); White Blood Count 5.3 K/mm3 (4.5-10.0)
[2024-07-13] MEDS: APIXABAN 5 MG TABLET PO ×2 (08:28→20:20)
[2024-07-13] MEDS: EMPAGLIFLOZIN 25 MG TABLET PO (08:28)
[2024-07-13] MEDS: hydrALAZINE HCL 50 MG TABLET PO (08:28)
[2024-07-13 08:41] LABS: Alanine Aminotransferase 13 U/L (6-35); Alkaline Phosphatase 67 U/L (38-126); Anion Gap 11 mmol/L (4-12); Aspartate Amino Transferase 25 U/L (14-36); Bilirubin,Total 0.9 mg/dL (0.2-1.3); Blood Urea Nitrogen 56 mg/dL (7-17); Calcium 8.7 mg/dL (8.4-10.2); Carbon Dioxide 28 mmol/L (22-30); Chloride 98 mmol/L (98-107); Estimated CRCL calculation 23 ml/min; Estimated Glomerular Filt Rate 23; Glucose 116 mg/dL (65-110); Magnesium 2.2 mg/dL (1.6-2.3); Potassium 3.9 mmol/L (3.4-5.0); Sodium 137 mmol/L (137-145)
--- NOTE | 2024-07-13 11:45 | P.PNIM_ITS ---
Progress Note: A&P Assessment and Plan (1) UTI (urinary tract infection): Code(s): N39.0 - Urinary tract infection, site not specified Status: Acute Assessment and Plan: * Admit to regular medical floor * Patient started on Rocephin * Await cultures (2) COVID: Code(s): U07.1 - COVID-19 Status: Acute Assessment and Plan: * Supportive care. * Guaifenesin 600 mg PO q12. * Duoneb q 6. (3) Atrial fibrillation: Qualifiers: Atrial fibrillation type: longstanding persistent Qualified Code(s): I48.11 - Longstanding persistent atrial fibrillation Code(s): I48.91 - Unspecified atrial fibrillation Status: Acute Assessment and Plan: * Rate controlled anticoagulated * Continue diltiazem * Continue apixaban (4) Morbid obesity with BMI of 50.0-59.9, adult: Code(s): E66.01 - Morbid (severe) obesity due to excess calories; Z68.43 - Body mass index [BMI] 50.0-59.9, adult Status: Acute Assessment and Plan: * 1800 calorie restricted diet (5) Chronic kidney disease (CKD): Qualifiers: Chronic kidney disease stage: stage 3 (moderate) Chronic kidney disease stage 3 subtype: stage 3b (GFR 30-44) Qualified Code(s): N18.32 - Chronic kidney disease, stage 3b Code(s): N18.9 - Chronic kidney disease, unspecified Status: Acute Assessment and Plan: * Creatinine 2.40 on admission, currently 2.11. * Holding Losartan and Lasix. * Continue to monitor (6) RIMMA (acute kidney injury): Code(s): N17.9 - Acute kidney failure, unspecified Status: Acute Assessment and Plan: * Holding losartan * Daily intake and output * Renal ultrasound: FINDINGS: The right kidney measures 8.9 x 4.6 x 5.5 cm. The left kidney measures 10.6 x 5.7 x 4.8 cm. The kidneys demonstrate normal parenchymal echogenicity. There is a 14 mm cyst in left kidney. There is no hydronephrosis. The bladder is normal. IMPRESSION: 1. Mild atrophy of right kidney. No hydronephrosis. (7) Chronic acquired lymphedema: Code(s): I89.0 - Lymphedema, not elsewhere classified Status: Acute Assessment and Plan: * Wound care consult (8) JOSE on CPAP: Code(s): G47.33 - Obstructive sleep apnea (adult) (pediatric); Z99.89 - Dependence on other enabling machines and devices Status: Acute Assessment and Plan: * CPAP at nighttime (9) HTN (hypertension): Qualifiers: Hypertension type: essential hypertension Qualified Code(s): I10 - Essential (primary) hypertension Code(s): I10 - Essential (primary) hypertension Status: Acute Assessment and Plan: * Holding losartan Subjective Date/time seen: 07/13/24 11:45 Interval history: Patient reported feeling that she needs to get secretions up out of chest and shortness of breath at times. Patient denies chest pain, palpitations, headache, dizziness, nausea, or vomiting. Patient reports that this is the first time she has had COVID. Patient reports using lymphedema pump 5 times a week at home and that it helps her legs alot. Patient has cargivers that help her at home. Review of Systems Review of Systems: All systems reviewed & are unremarkable except as noted in HPI and below Exam Const: General: comfortable and no acute distress Eyes: Sclera: sclerae normal Resp: Effort & Inspection: normal respiratory effort Auscultation: wheezes expiratory wheezes and diminished lung sounds Cardio: Rhythm: abnormal rhythm irregularly irregular (Afib 58) GI: GI Palp: Yes Soft to palpation Auscultation: normal bowel sounds Other: obese Skin: Other: Chronic skin changes and discoloration bilateral lower extremity. Neuro: Speech: normal speech Extrem: Other: Chronic bilateral lower extremity swelling skin changes and discoloration. Lymphedema. Psych: Mental Status: mental status grossly normal Affect: normal affect Objective Data Vital Signs Vital Signs: Vital Signs - 24 hr 07/12/24 17:42 07/12/24 20:02 07/12/24 20:09 Temperature 97.6 F Pulse Rate 56 L 54 L Respiratory Rate 21 H 14 Blood Pressure 118/47 L 114/52 L Pulse Oximetry 91 97 90 Oxygen Delivery Room Air Room Air Oxygen Flow Rate 07/12/24 20:09 07/12/24 21:01 07/12/24 21:20 Temperature Pulse Rate 54 L Respiratory Rate 15 Blood Pressure 104/54 L Pulse Oximetry 97 99 100 Oxygen Delivery Nasal Cannula Nasal Cannula Oxygen Flow Rate 2 2 07/12/24 22:00 02/01/25 00:00 07/13/24 04:00 Temperature 98.3 F Pulse Rate 60 58 L 63 Respiratory Rate 18 Blood Pressure 118/44 L Pulse Oximetry 100 Oxygen Delivery Oxygen Flow Rate 07/13/24 06:00 07/13/24 08:00 07/13/24 08:26 Temperature 98.5 F 98.6 F Pulse Rate 66 62 54 L Respiratory Rate 18 16 Blood Pressure 117/89 144/62 H Pulse Oximetry 94 99 Oxygen Delivery Oxygen Flow Rate 07/13/24 08:30 07/13/24 10:47 Temperature Pulse Rate 54 L Respiratory Rate Blood Pressure Pulse Oximetry 96 Oxygen Delivery Nasal Cannula Oxygen Flow Rate 2 Intake/Output Intake/Output: Intake & Output 07/10/24 07/11/24 07/12/24 07/13/24 23:59 23:59 23:59 23:59 Intake Total 1050 480 Output Total 1500 Balance 1050 -1020 Meds/Results Medications: Active Medications Generic Name Dose Route Start Last Admin Trade Name Freq PRN Reason Stop Dose Admin Acetaminophen 650 mg 07/12/24 20:29 Acetaminophen 325 Mg Tablet PO Q4H PRN Mild Pain (1-3) or Fever Hydrocodone Bitart/Acetaminophen 1 tab 07/12/24 20:29 Hydrocodone/Acetaminophen (*Crx) 5-325 Mg Tablet PO Q4H PRN Pain Rated 4-6 Apixaban 5 mg 07/13/24 09:00 07/13/24 08:28 Apixaban 5 Mg Tablet PO 5 mg Q12HR JAYLENE Administration Benzonatate 200 mg 07/13/24 10:52 Benzonatate 100 Mg Capsule PO TID PRN Cough Diltiazem HCl 180 mg 07/13/24 09:00 Diltiazem Hcl Cd 180 Mg Cap.24hr PO DAILY JAYLENE Doxazosin Mesylate 8 mg 07/13/24 21:00 Doxazosin Mesylate 4 Mg Tablet PO HS JAYLENE Empagliflozin 25 mg 07/13/24 09:00 07/13/24 08:28 Empagliflozin 25 Mg Tablet PO 25 mg QAM JAYLENE Administration Hydralazine HCl 50 mg 07/13/24 09:00 07/13/24 08:28 Hydralazine Hcl 50 Mg Tablet PO 50 mg BID JAYLENE Administration Ceftriaxone Sodium 1 gm in 50 mls @ 100 mls/hr 07/13/24 20:00 Rocephin 1 Gm/Ns 50 Ml IVPB Q24H JAYLENE Loratadine 10 mg 07/13/24 00:22 Loratadine 10 Mg Tablet PO DAILY PRN allergy symptoms Metoprolol Tartrate 50 mg 07/13/24 09:00 07/13/24 10:47 Metoprolol Tartrate 50 Mg Tab PO Not Given Q12HR JAYLENE Montelukast Sodium 10 mg 07/13/24 21:00 Montelukast Sodium 10 Mg Tablet PO HS JAYLENE Ondansetron HCl 4 mg 07/12/24 20:29 Ondansetron Inj 4 Mg/2 Ml Vial IV PUSH Q4H PRN Nausea Radiology Results: ITS Impressions Chest X-Ray 07/12/24 18:09 IMPRESSION: No focal infiltrate or effusion. Labs Labs: Laboratory Results - last 24 hr 07/12/24 07/12/24 07/13/24 17:56 18:33 08:00 WBC 8.4 5.3 RBC 3.21 L 3.17 L Hgb 10.6 L 10.4 L Hct 32.9 L 32.2 L MCV 102.5 H 101.6 H MCH 33.0 32.8 MCHC 32.2 32.3 RDW 13.2 13.2 Plt Count 168 165 MPV 10.2 10.1 Immature Gran % (Auto) 0.2 0.2 Neut % (Auto) 81.6 H 75.0 H Lymph % (Auto) 3.4 L 7.2 L Door % (Auto) 12.9 H 15.5 H Eos % (Auto) 1.3 1.3 Baso % (Auto) 0.6 0.8 Lymph # (Auto) 0.29 L 0.38 L Door # (Auto) 1.1 H 0.8 H Eos # (Auto) 0.1 0.1 Baso # (Auto) 0.1 0.0 Abs Immat Gran (auto) 0.02 0.01 Absolute Neuts (auto) 6.9 H 4.0 Absolute Nucleated RBC 0.000 0.000 Nucleated RBC % 0.0 0.0 Sodium 137 Potassium 4.5 Chloride 96 L Carbon Dioxide 27 Anion Gap 14 H BUN 67 H D Creatinine 2.40 H Estim Creat Clear Calc 20 Estimated GFR 19 L Glucose 126 H Calcium 8.7 Magnesium Total Bilirubin 0.9 AST 24 ALT 14 Alkaline Phosphatase 68 Total Protein 7.0 Albumin 4.1 Urine Color Yellow Urine Appearance Cloudy H Urine pH 5.0 Ur Specific [place] 1.013 Urine Protein Trace Urine Glucose (UA) Trace H Urine Ketones Negative Ur Blood (Man) Negative Urine Nitrate Positive H Urine Bilirubin Negative Urine Urobilinogen 0.2 Add Ur Microanalysis Reviewed Leukocyte Esterase Rfl 2+ H Urine RBC 51-100 H Urine WBC 21-50 H Ur Squamous Epith Cells None seen Urine Bacteria 4+ H Urine Casts 3-5 Hyaline Casts Present Urine Mucus Present Urine Yeast (Budding) Present H Influenza A (RT-PCR) Negative Influenza B (RT-PCR) Negative RSV (RT-PCR) Negative SARS-CoV-2 RNA (RT-PCR) Positive A 07/13/24 08:01 WBC RBC Hgb Hct MCV MCH MCHC RDW Plt Count MPV Immature Gran % (Auto) Neut % (Auto) Lymph % (Auto) Door % (Auto) Eos % (Auto) Baso % (Auto) Lymph # (Auto) Door # (Auto) Eos # (Auto) Baso # (Auto) Abs Immat Gran (auto) Absolute Neuts (auto) Absolute Nucleated RBC Nucleated RBC % Sodium 137 Potassium 3.9 Chloride 98 Carbon Dioxide 28 Anion Gap 11 BUN 56 H D Creatinine 2.11 H Estim Creat Clear Calc 23 Estimated GFR 23 L Glucose 116 H Calcium 8.7 Magnesium 2.2 Total Bilirubin 0.9 AST 25 ALT 13 Alkaline Phosphatase 67 Total Protein 7.0 Albumin 4.0 Urine Color Urine Appearance Urine pH Ur Specific [place] Urine Protein Urine Glucose (UA) Urine Ketones Ur Blood (Man) Urine Nitrate Urine Bilirubin Urine Urobilinogen Add Ur Microanalysis Leukocyte Esterase Rfl Urine RBC Urine WBC Ur Squamous Epith Cells Urine Bacteria Urine Casts Hyaline Casts Urine Mucus Urine Yeast (Budding) Influenza A (RT-PCR) Influenza B (RT-PCR) RSV (RT-PCR) SARS-CoV-2 RNA (RT-PCR) Quality VTE Prophylaxis VTE prophylaxis: pharmacologic ordered
[2024-07-13] MEDS: ONDANSETRON INJ 4 MG/2 ML VIAL IV PUSH (12:12)
[2024-07-13] MEDS: dilTIAZem HCL CD 180 MG CAP.24HR PO (12:12)
[2024-07-13] MEDS: BENZONATATE 100 MG CAPSULE 200 MG PO ×2 (12:12→20:19)
[2024-07-13] MEDS: IPRATROPIUM 0.5 MG/ALBUTEROL SULFATE 2.5 MG AMPUL.NEB 3 ML INHALATION ×2 (13:08→20:33)
[2024-07-13] MEDS: ACETAMINOPHEN 325 MG TABLET 650 MG PO (18:20)
[2024-07-13] MEDS: HYDROcodone/acetaminophen (*CRX) 5-325 MG TABLET 1 TAB PO (20:19)
[2024-07-13] MEDS: METOPROLOL TARTRATE 50 MG TAB PO (20:20)
[2024-07-13] MEDS: MONTELUKAST SODIUM 10 MG TABLET PO (20:20)
[2024-07-13] MEDS: DOXAZOSIN MESYLATE 4 MG TABLET 8 MG PO (20:20)
[2024-07-13] MEDS: guaiFENesin 12 HR 600 MG TABCR PO (20:20)
[2024-07-14] VITALS (21 sets, daily range): BP systolic 96–154; BP diastolic 43–68; PULSE 61–98; RESP 18–20; TEMP 36.2–37.1; O2SAT 91–97
[2024-07-14] MEDS: IPRATROPIUM 0.5 MG/ALBUTEROL SULFATE 2.5 MG AMPUL.NEB 3 ML INHALATION ×4 (02:02→20:52)
[2024-07-14 06:14] LABS: Basophils Percent Auto 0.5 % (0.2-1.2); Eosinophils Absolute Auto 0.1 K/mm3 (0-0.3); Eosinophils Percent Auto 0.9 % (0-4.4); Hematocrit 31.1 % (37.0-47.0); Hemoglobin 9.7 g/dL (12.0-15.0); Immature Granulocyte Absolute 0.03 K/mm3 (0.00-0.031); Immature Granulocyte Percent A 0.5 % (0-0.5); Lymphocytes Absolute Auto 0.56 K/mm3 (0.9-3.2); Lymphocytes Percent Auto 10.1 % (18.3-44.2); Mean Corpuscular HGB Conc 31.2 g/dl (32-36); Mean Corpuscular Hemoglobin 33.1 pg (26-34); Mean Corpuscular Volume 106.1 fl (80-100); Mean Platelet Volume 9.7 fl (7.4-10.4); Monocytes Absolute Auto 0.9 K/mm3 (0.1-0.6); Monocytes Percent Auto 15.6 % (2.6-8.5); Neutrophils Percent Auto 72.4 % (45.5-73.1); Platelet Count Result 148 k/mm3 (150-375); Red Blood Count 2.93 M/mm3 (4.2-5.4); Red Cell Distribution Width 13.3 % (11.5-14.5); White Blood Count 5.5 K/mm3 (4.5-10.0)
[2024-07-14 06:25] LABS: Alanine Aminotransferase 14 U/L (6-35); Albumin Level 3.7 g/dL (3.5-5.1); Alkaline Phosphatase 58 U/L (38-126); Anion Gap 11 mmol/L (4-12); Aspartate Amino Transferase 28 U/L (14-36); Bilirubin,Total 0.6 mg/dL (0.2-1.3); Blood Urea Nitrogen 57 mg/dL (7-17); Calcium 8.1 mg/dL (8.4-10.2); Carbon Dioxide 29 mmol/L (22-30); Chloride 97 mmol/L (98-107); Estimated CRCL calculation 22 ml/min; Estimated Glomerular Filt Rate 22; Glucose 146 mg/dL (65-110); Potassium 4.2 mmol/L (3.4-5.0); Sodium 137 mmol/L (137-145)
[2024-07-14 07:19] LABS: Macrocytosis 1+ (NORMAL); Platelet Estimate Adequate (Adequate)
[2024-07-14 07:20] LABS: Schistocytes None Seen
[2024-07-14] MEDS: METOPROLOL TARTRATE 50 MG TAB PO ×2 (08:18→21:14)
[2024-07-14] MEDS: APIXABAN 5 MG TABLET PO ×2 (08:19→21:14)
[2024-07-14] MEDS: ACETAMINOPHEN 325 MG TABLET 650 MG PO ×2 (08:19→12:48)
[2024-07-14] MEDS: EMPAGLIFLOZIN 25 MG TABLET PO (08:19)
[2024-07-14] MEDS: guaiFENesin 12 HR 600 MG TABCR PO ×2 (08:19→21:14)
--- NOTE | 2024-07-14 11:30 | P.PNIM_ITS ---
Progress Note: A&P Assessment and Plan (1) UTI (urinary tract infection): Code(s): N39.0 - Urinary tract infection, site not specified Status: Acute Assessment and Plan: * Admit to regular medical floor * Patient started on Rocephin * Await cultures (2) COVID: Code(s): U07.1 - COVID-19 Status: Acute Assessment and Plan: * Supportive care. * Guaifenesin 600 mg PO q12. * Duoneb q 6. * Add Decadron 6 mg ivp daily. * Incentive spirometer. (3) Atrial fibrillation: Qualifiers: Atrial fibrillation type: longstanding persistent Qualified Code(s): I48.11 - Longstanding persistent atrial fibrillation Code(s): I48.91 - Unspecified atrial fibrillation Status: Acute Assessment and Plan: * Rate controlled anticoagulated * Continue diltiazem * Continue apixaban (4) Morbid obesity with BMI of 50.0-59.9, adult: Code(s): E66.01 - Morbid (severe) obesity due to excess calories; Z68.43 - Body mass index [BMI] 50.0-59.9, adult Status: Acute Assessment and Plan: * 1800 calorie restricted diet (5) Chronic kidney disease (CKD): Qualifiers: Chronic kidney disease stage: stage 3 (moderate) Chronic kidney disease stage 3 subtype: stage 3b (GFR 30-44) Qualified Code(s): N18.32 - Chronic kidney disease, stage 3b Code(s): N18.9 - Chronic kidney disease, unspecified Status: Acute Assessment and Plan: * Creatinine 2.40 on admission, currently 2.18. * Holding Losartan and Lasix. * Continue to monitor (6) RIMMA (acute kidney injury): Code(s): N17.9 - Acute kidney failure, unspecified Status: Acute Assessment and Plan: * Holding losartan * Daily intake and output * Renal ultrasound: FINDINGS: The right kidney measures 8.9 x 4.6 x 5.5 cm. The left kidney measures 10.6 x 5.7 x 4.8 cm. The kidneys demonstrate normal parenchymal echogenicity. There is a 14 mm cyst in left kidney. There is no hydronephrosis. The bladder is normal. IMPRESSION: 1. Mild atrophy of right kidney. No hydronephrosis. (7) Chronic acquired lymphedema: Code(s): I89.0 - Lymphedema, not elsewhere classified Status: Acute Assessment and Plan: * Wound care consult (8) JOSE on CPAP: Code(s): G47.33 - Obstructive sleep apnea (adult) (pediatric); Z99.89 - Dependence on other enabling machines and devices Status: Acute Assessment and Plan: * CPAP at nighttime (9) HTN (hypertension): Qualifiers: Hypertension type: essential hypertension Qualified Code(s): I10 - Essential (primary) hypertension Code(s): I10 - Essential (primary) hypertension Status: Acute Assessment and Plan: * Holding losartan Subjective Date/time seen: 07/14/24 11:30 Interval history: Patient reports feeling a little better today and that breathing has improved. Patient reports still having difficulty getting up sputum. Patient reports pain in head and RUQ is an 8 , constant, and aching. Patient denies chest pain, palpitations, vomiting, or dizziness. Patient reports nausea at times. Review of Systems Review of Systems: All systems reviewed & are unremarkable except as noted in HPI and below Exam Const: General: comfortable and no acute distress Eyes: Sclera: sclerae normal Resp: Auscultation: wheezes expiratory wheezes and diminished lung sounds Cardio: Rhythm: abnormal rhythm irregularly irregular (Afib 66) GI: GI Palp: Yes Soft to palpation Auscultation: normal bowel sounds Other: obese Skin: Other: Chronic skin changes and discoloration bilateral lower extremity. Neuro: Speech: normal speech Extrem: Other: Chronic bilateral lower extremity swelling skin changes and discoloration. Lymphedema. Psych: Mental Status: mental status grossly normal Affect: normal affect Objective Data Vital Signs Vital Signs: Vital Signs - 24 hr 07/13/24 12:00 07/13/24 13:08 07/13/24 13:08 Temperature Pulse Rate 61 64 64 Respiratory Rate 18 18 Blood Pressure Pulse Oximetry 94 Oxygen Delivery Nasal Cannula Oxygen Flow Rate 2 07/13/24 13:18 07/13/24 13:50 07/13/24 14:00 Temperature 99 F Pulse Rate 66 71 Respiratory Rate 18 22 H Blood Pressure 114/46 L 114/46 L Pulse Oximetry 96 Oxygen Delivery Oxygen Flow Rate 07/13/24 16:00 07/13/24 18:19 07/13/24 20:00 Temperature Pulse Rate 57 L 59 L Respiratory Rate Blood Pressure 110/44 L Pulse Oximetry Oxygen Delivery Oxygen Flow Rate 07/13/24 20:00 07/13/24 20:20 07/13/24 20:33 Temperature Pulse Rate 81 72 81 Respiratory Rate 18 18 Blood Pressure Pulse Oximetry 92 Oxygen Delivery Nasal Cannula Oxygen Flow Rate 2 07/13/24 20:38 07/13/24 22:00 07/14/24 00:00 Temperature 98.1 F Pulse Rate 81 65 67 Respiratory Rate 18 Blood Pressure 111/30 L Pulse Oximetry 92 93 Oxygen Delivery Nasal Cannula Oxygen Flow Rate 2 07/14/24 02:02 07/14/24 02:12 07/14/24 04:00 Temperature Pulse Rate 71 69 73 Respiratory Rate 18 18 Blood Pressure Pulse Oximetry Oxygen Delivery Oxygen Flow Rate 07/14/24 06:00 07/14/24 06:55 07/14/24 06:55 Temperature 98.0 F Pulse Rate 79 65 65 Respiratory Rate 18 18 18 Blood Pressure 141/43 H Pulse Oximetry 97 91 Oxygen Delivery Nasal Cannula Oxygen Flow Rate 2 07/14/24 07:05 07/14/24 08:08 07/14/24 08:18 Temperature 97.2 F L Pulse Rate 68 92 85 Respiratory Rate 18 20 Blood Pressure 96/68 L Pulse Oximetry 97 Oxygen Delivery Oxygen Flow Rate 07/14/24 08:28 07/14/24 08:28 Temperature Pulse Rate 98 Respiratory Rate Blood Pressure Pulse Oximetry 97 Oxygen Delivery Nasal Cannula Oxygen Flow Rate 2 Intake/Output Intake/Output: Intake & Output 07/11/24 07/12/24 07/13/24 07/14/24 23:59 23:59 23:59 23:59 Intake Total 1050 960 700 Output Total 2550 1050 Balance 1050 -1590 -350 Meds/Results Medications: Active Medications Generic Name Dose Route Start Last Admin Trade Name Freq PRN Reason Stop Dose Admin Acetaminophen 650 mg 07/12/24 20:29 07/14/24 08:19 Acetaminophen 325 Mg Tablet PO 650 mg Q4H PRN Administration Mild Pain (1-3) or Fever Hydrocodone Bitart/Acetaminophen 1 tab 07/12/24 20:29 07/13/24 20:19 Hydrocodone/Acetaminophen (*Crx) 5-325 Mg Tablet PO 1 tab Q4H PRN Administration Pain Rated 4-6 Albuterol/Ipratropium 3 ml 07/13/24 14:00 07/14/24 06:58 Ipratropium 0.5 Mg/Albuterol Sulfate 2.5 Mg Ampul.Neb 3 Ml INHALATION 3 ml Q6HRT JAYLENE Administration Apixaban 5 mg 07/13/24 09:00 07/14/24 08:19 Apixaban 5 Mg Tablet PO 5 mg Q12HR JAYLENE Administration Benzonatate 200 mg 07/13/24 10:52 07/13/24 20:19 Benzonatate 100 Mg Capsule PO 200 mg TID PRN Administration Cough Diltiazem HCl 180 mg 07/13/24 09:00 07/14/24 08:20 Diltiazem Hcl Cd 180 Mg Cap.24hr PO Not Given DAILY JAYLENE Doxazosin Mesylate 8 mg 07/13/24 21:00 07/13/24 20:20 Doxazosin Mesylate 4 Mg Tablet PO 8 mg HS JAYLENE Administration Empagliflozin 25 mg 07/13/24 09:00 07/14/24 08:19 Empagliflozin 25 Mg Tablet PO 25 mg QAM JAYLENE Administration Guaifenesin 600 mg 07/13/24 21:00 07/14/24 08:19 Guaifenesin 12 Hr 600 Mg Tabcr PO 07/20/24 20:59 600 mg Q12HR JAYLENE Administration Hydralazine HCl 50 mg 07/13/24 09:00 07/14/24 08:21 Hydralazine Hcl 50 Mg Tablet PO Not Given BID JAYLENE Ceftriaxone Sodium 1 gm in 50 mls @ 100 mls/hr 07/13/24 20:00 07/13/24 20:17 Rocephin 1 Gm/Ns 50 Ml IVPB 100 mls/hr Q24H JAYLENE Administration Loratadine 10 mg 07/13/24 00:22 Loratadine 10 Mg Tablet PO DAILY PRN allergy symptoms Metoprolol Tartrate 50 mg 07/13/24 09:00 07/14/24 08:18 Metoprolol Tartrate 50 Mg Tab PO 50 mg Q12HR JAYLENE Administration Montelukast Sodium 10 mg 07/13/24 21:00 07/13/24 20:20 Montelukast Sodium 10 Mg Tablet PO 10 mg HS JAYLENE Administration Ondansetron HCl 4 mg 07/12/24 20:29 07/13/24 12:12 Ondansetron Inj 4 Mg/2 Ml Vial IV PUSH 4 mg Q4H PRN Administration Nausea Radiology Results: ITS Impressions Chest X-Ray 07/12/24 18:09 IMPRESSION: No focal infiltrate or effusion. Renal Ultrasound 07/13/24 11:42 IMPRESSION: 1. Mild atrophy of right kidney. No hydronephrosis. Labs Labs: Laboratory Results - last 24 hr 07/14/24 06:00 WBC 5.5 RBC 2.93 L Hgb 9.7 L Hct 31.1 L MCV 106.1 H MCH 33.1 MCHC 31.2 L RDW 13.3 Plt Count 148 L MPV 9.7 Immature Gran % (Auto) 0.5 Neut % (Auto) 72.4 Lymph % (Auto) 10.1 L Love % (Auto) 15.6 H Eos % (Auto) 0.9 Baso % (Auto) 0.5 Lymph # (Auto) 0.56 L Love # (Auto) 0.9 H Eos # (Auto) 0.1 Baso # (Auto) 0.0 Abs Immat Gran (auto) 0.03 Absolute Neuts (auto) 4.0 Absolute Nucleated RBC 0.000 Nucleated RBC % 0.0 Platelet Estimate Adequate Macrocytosis 1+ Schistocytes None seen Sodium 137 Potassium 4.2 Chloride 97 L Carbon Dioxide 29 Anion Gap 11 BUN 57 H Creatinine 2.18 H Estim Creat Clear Calc 22 Estimated GFR 22 L Glucose 146 H Calcium 8.1 L Total Bilirubin 0.6 AST 28 ALT 14 Alkaline Phosphatase 58 Total Protein 7.0 Albumin 3.7 Quality VTE Prophylaxis VTE prophylaxis: pharmacologic ordered
[2024-07-14] MEDS: dexAMETHasone SOD PHOS INJ 10 MG/ML 1 ML VIAL 6 MG IV PUSH (12:49)
[2024-07-14] MEDS: hydrALAZINE HCL 50 MG TABLET PO (16:52)
[2024-07-14] MEDS: DOXAZOSIN MESYLATE 4 MG TABLET 8 MG PO (21:13)
[2024-07-14] MEDS: HYDROcodone/acetaminophen (*CRX) 5-325 MG TABLET 1 TAB PO (21:14)
[2024-07-14] MEDS: MONTELUKAST SODIUM 10 MG TABLET PO (21:14)
[2024-07-14] MEDS: BENZONATATE 100 MG CAPSULE 200 MG PO (21:14)
[2024-07-15] VITALS (18 sets, daily range): BP systolic 144–169; BP diastolic 46–114; PULSE 54–83; RESP 18–20; TEMP 36.5–36.6; O2SAT 91–97
[2024-07-15] MEDS: IPRATROPIUM 0.5 MG/ALBUTEROL SULFATE 2.5 MG AMPUL.NEB 3 ML INHALATION ×4 (02:12→21:14)
[2024-07-15 05:56] LABS: Basophils Percent Auto 0.2 % (0.2-1.2); Hematocrit 32.1 % (37.0-47.0); Hemoglobin 10.1 g/dL (12.0-15.0); Immature Granulocyte Absolute 0.04 K/mm3 (0.00-0.031); Immature Granulocyte Percent A 0.7 % (0-0.5); Lymphocytes Percent Auto 5.4 % (18.3-44.2); Mean Corpuscular HGB Conc 31.5 g/dl (32-36); Mean Corpuscular Hemoglobin 32.3 pg (26-34); Mean Corpuscular Volume 102.6 fl (80-100); Mean Platelet Volume 9.8 fl (7.4-10.4); Monocytes Absolute Auto 0.4 K/mm3 (0.1-0.6); Monocytes Percent Auto 6.3 % (2.6-8.5); Neutrophils Absolute Auto 4.8 K/mm3 (1.3-6.7); Neutrophils Percent Auto 87.4 % (45.5-73.1); Platelet Count Result 157 k/mm3 (150-375); Red Blood Count 3.13 M/mm3 (4.2-5.4); Red Cell Distribution Width 12.7 % (11.5-14.5); White Blood Count 5.5 K/mm3 (4.5-10.0)
[2024-07-15 06:07] LABS: Alanine Aminotransferase 15 U/L (6-35); Albumin Level 3.6 g/dL (3.5-5.1); Alkaline Phosphatase 60 U/L (38-126); Anion Gap 8 mmol/L (4-12); Aspartate Amino Transferase 26 U/L (14-36); Bilirubin,Total 0.5 mg/dL (0.2-1.3); Blood Urea Nitrogen 52 mg/dL (7-17); Calcium 8.3 mg/dL (8.4-10.2); Carbon Dioxide 30 mmol/L (22-30); Chloride 96 mmol/L (98-107); Estimated CRCL calculation 24 ml/min; Estimated Glomerular Filt Rate 24; Glucose 179 mg/dL (65-110); Potassium 4.7 mmol/L (3.4-5.0); Sodium 134 mmol/L (137-145)
[2024-07-15] MEDS: ACETAMINOPHEN 325 MG TABLET 650 MG PO ×2 (09:41→16:16)
[2024-07-15] MEDS: EMPAGLIFLOZIN 25 MG TABLET PO (09:41)
[2024-07-15] MEDS: METOPROLOL TARTRATE 50 MG TAB PO ×2 (09:41→20:09)
[2024-07-15] MEDS: APIXABAN 5 MG TABLET PO ×2 (09:41→20:09)
[2024-07-15] MEDS: guaiFENesin 12 HR 600 MG TABCR PO ×2 (09:41→20:09)
[2024-07-15] MEDS: dilTIAZem HCL CD 180 MG CAP.24HR PO (09:41)
[2024-07-15] MEDS: hydrALAZINE HCL 50 MG TABLET PO ×2 (09:41→16:16)
[2024-07-15] MEDS: dexAMETHasone SOD PHOS INJ 10 MG/ML 1 ML VIAL 6 MG IV PUSH (09:43)
--- NOTE | 2024-07-15 11:19 | P.PNIM_ITS ---
Progress Note: A&P Assessment and Plan (1) UTI (urinary tract infection): Code(s): N39.0 - Urinary tract infection, site not specified Status: Acute Assessment and Plan: * Admit to regular medical floor * Patient started on Rocephin * Urine culture showed E coli (2) COVID: Code(s): U07.1 - COVID-19 Status: Acute Assessment and Plan: * Supportive care. * Guaifenesin 600 mg PO q12. * Duoneb q 6. * Add Decadron 6 mg ivp daily. * Incentive spirometer. (3) Atrial fibrillation: Qualifiers: Atrial fibrillation type: longstanding persistent Qualified Code(s): I48.11 - Longstanding persistent atrial fibrillation Code(s): I48.91 - Unspecified atrial fibrillation Status: Acute Assessment and Plan: * Rate controlled anticoagulated * Continue diltiazem * Continue apixaban (4) Morbid obesity with BMI of 50.0-59.9, adult: Code(s): E66.01 - Morbid (severe) obesity due to excess calories; Z68.43 - Body mass index [BMI] 50.0-59.9, adult Status: Acute Assessment and Plan: * 1800 calorie restricted diet (5) Chronic kidney disease (CKD): Qualifiers: Chronic kidney disease stage: stage 3 (moderate) Chronic kidney disease stage 3 subtype: stage 3b (GFR 30-44) Qualified Code(s): N18.32 - Chronic kidney disease, stage 3b Code(s): N18.9 - Chronic kidney disease, unspecified Status: Acute Assessment and Plan: * Creatinine 2.40 on admission, currently 1.97. Improving. * Holding Losartan and Lasix. * Continue to monitor (6) RIMMA (acute kidney injury): Code(s): N17.9 - Acute kidney failure, unspecified Status: Acute Assessment and Plan: * Holding losartan * Daily intake and output * Renal ultrasound: FINDINGS: The right kidney measures 8.9 x 4.6 x 5.5 cm. The left kidney measures 10.6 x 5.7 x 4.8 cm. The kidneys demonstrate normal parenchymal echogenicity. There is a 14 mm cyst in left kidney. There is no hydronephrosis. The bladder is normal. IMPRESSION: 1. Mild atrophy of right kidney. No hydronephrosis. (7) Chronic acquired lymphedema: Code(s): I89.0 - Lymphedema, not elsewhere classified Status: Acute Assessment and Plan: * Wound care consult (8) JOSE on CPAP: Code(s): G47.33 - Obstructive sleep apnea (adult) (pediatric); Z99.89 - Dependence on other enabling machines and devices Status: Acute Assessment and Plan: * CPAP at nighttime (9) HTN (hypertension): Qualifiers: Hypertension type: essential hypertension Qualified Code(s): I10 - Essential (primary) hypertension Code(s): I10 - Essential (primary) hypertension Status: Acute Assessment and Plan: * Holding losartan Subjective Date/time seen: 07/15/24 11:19 Interval history: Patient reports feeling better today and that breathing has improved. Patient denies chest pain, palpitations, headache, dizziness, nausea, or vomiting. Reports that her appetite is good and that she has been using her incentive spirometer. Review of Systems Review of Systems: All systems reviewed & are unremarkable except as noted in HPI and below Exam Const: General: comfortable and no acute distress Eyes: Sclera: sclerae normal Resp: Auscultation: diminished lung sounds Cardio: Rhythm: abnormal rhythm irregularly irregular (Afib 64) GI: GI Palp: Yes Soft to palpation Auscultation: normal bowel sounds Other: Obese Skin: Other: Chronic skin changes and discoloration bilateral lower extremity. Neuro: Speech: normal speech Extrem: Other: Chronic bilateral lower extremity swelling 4+, skin changes and discoloration. Lymphedema. 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 Psych: Mental Status: mental status grossly normal Affect: normal affect Objective Data Vital Signs Vital Signs: Vital Signs - 24 hr 07/14/24 12:00 07/14/24 12:50 07/14/24 13:00 Temperature Pulse Rate 61 72 74 Respiratory Rate 18 18 Blood Pressure Pulse Oximetry Oxygen Delivery Oxygen Flow Rate 07/14/24 15:15 07/14/24 16:00 07/14/24 16:51 Temperature 98.3 F 97.7 F Pulse Rate 65 64 68 Respiratory Rate 20 18 Blood Pressure 141/61 H 154/45 H Pulse Oximetry 97 93 Oxygen Delivery Oxygen Flow Rate 07/14/24 20:00 07/14/24 20:00 07/14/24 20:15 Temperature 98.7 F Pulse Rate 77 87 76 Respiratory Rate 18 20 Blood Pressure 152/59 H Pulse Oximetry 92 94 Oxygen Delivery Nasal Cannula Oxygen Flow Rate 2 07/14/24 20:52 07/14/24 20:58 07/14/24 21:08 Temperature Pulse Rate 82 82 77 Respiratory Rate 18 18 Blood Pressure Pulse Oximetry 92 Oxygen Delivery Nasal Cannula Oxygen Flow Rate 2 07/15/24 00:00 07/15/24 02:12 07/15/24 02:22 Temperature Pulse Rate 66 63 65 Respiratory Rate 18 18 Blood Pressure Pulse Oximetry Oxygen Delivery Oxygen Flow Rate 07/15/24 04:00 07/15/24 04:12 07/15/24 08:04 Temperature 97.7 F Pulse Rate 63 60 58 L Respiratory Rate 20 20 Blood Pressure 149/90 H Pulse Oximetry 97 94 Oxygen Delivery Nasal Cannula Oxygen Flow Rate 1 07/15/24 08:04 07/15/24 08:15 07/15/24 09:38 Temperature 97.9 F Pulse Rate 58 L 78 69 Respiratory Rate 20 20 18 Blood Pressure 149/46 H Pulse Oximetry 96 Oxygen Delivery Oxygen Flow Rate 07/15/24 09:41 07/15/24 09:41 07/15/24 09:41 Temperature Pulse Rate 59 L 65 Respiratory Rate Blood Pressure Pulse Oximetry 96 Oxygen Delivery Nasal Cannula Oxygen Flow Rate 2 Intake/Output Intake/Output: Intake & Output 07/12/24 07/13/24 07/14/24 07/15/24 23:59 23:59 23:59 23:59 Intake Total 1050 1010 1660 630 Output Total 2550 1650 600 Balance 1050 -1540 10 30 Meds/Results Medications: Active Medications Generic Name Dose Route Start Last Admin Trade Name Freq PRN Reason Stop Dose Admin Acetaminophen 650 mg 07/12/24 20:29 07/15/24 09:41 Acetaminophen 325 Mg Tablet PO 650 mg Q4H PRN Administration Mild Pain (1-3) or Fever Hydrocodone Bitart/Acetaminophen 1 tab 07/12/24 20:29 07/14/24 21:14 Hydrocodone/Acetaminophen (*Crx) 5-325 Mg Tablet PO 1 tab Q4H PRN Administration Pain Rated 4-6 Albuterol/Ipratropium 3 ml 07/13/24 14:00 07/15/24 08:02 Ipratropium 0.5 Mg/Albuterol Sulfate 2.5 Mg Ampul.Neb 3 Ml INHALATION 3 ml Q6HRT JAYLENE Administration Apixaban 5 mg 07/13/24 09:00 07/15/24 09:41 Apixaban 5 Mg Tablet PO 5 mg Q12HR JAYLENE Administration Benzonatate 200 mg 07/13/24 10:52 07/14/24 21:14 Benzonatate 100 Mg Capsule PO 200 mg TID PRN Administration Cough Dexamethasone Sodium Phosphate 6 mg 07/14/24 11:40 07/15/24 09:43 Dexamethasone Sod Phos Inj 10 Mg/Ml 1 Ml Vial IV PUSH 07/23/24 09:01 6 mg DAILY JAYLENE Administration Diltiazem HCl 180 mg 07/13/24 09:00 07/15/24 09:41 Diltiazem Hcl Cd 180 Mg Cap.24hr PO 180 mg DAILY JAYLENE Administration Doxazosin Mesylate 8 mg 07/13/24 21:00 07/14/24 21:13 Doxazosin Mesylate 4 Mg Tablet PO 8 mg HS JAYLENE Administration Empagliflozin 25 mg 07/13/24 09:00 07/15/24 09:41 Empagliflozin 25 Mg Tablet PO 25 mg QAM JAYLENE Administration Fluticasone Propionate 1 spray 07/14/24 21:19 Fluticasone Propionate 0.05% Na Spr 16 Gm Btl (*Bkc) NASAL Q4H PRN Nasal Congestion Guaifenesin 600 mg 07/13/24 21:00 07/15/24 09:41 Guaifenesin 12 Hr 600 Mg Tabcr PO 07/20/24 20:59 600 mg Q12HR JAYLENE Administration Hydralazine HCl 50 mg 07/13/24 09:00 07/15/24 09:41 Hydralazine Hcl 50 Mg Tablet PO 50 mg BID JAYLENE Administration Ceftriaxone Sodium 1 gm in 50 mls @ 100 mls/hr 07/13/24 20:00 07/14/24 21:14 Rocephin 1 Gm/Ns 50 Ml IVPB 100 mls/hr Q24H JAYLENE Administration Loratadine 10 mg 07/13/24 00:22 Loratadine 10 Mg Tablet PO DAILY PRN allergy symptoms Metoprolol Tartrate 50 mg 07/13/24 09:00 07/15/24 09:41 Metoprolol Tartrate 50 Mg Tab PO 50 mg Q12HR JAYLENE Administration Montelukast Sodium 10 mg 07/13/24 21:00 07/14/24 21:14 Montelukast Sodium 10 Mg Tablet PO 10 mg HS JAYLENE Administration Ondansetron HCl 4 mg 07/12/24 20:29 07/13/24 12:12 Ondansetron Inj 4 Mg/2 Ml Vial IV PUSH 4 mg Q4H PRN Administration Nausea Radiology Results: ITS Impressions Chest X-Ray 07/12/24 18:09 IMPRESSION: No focal infiltrate or effusion. Renal Ultrasound 07/13/24 11:42 IMPRESSION: 1. Mild atrophy of right kidney. No hydronephrosis. Labs Labs: Laboratory Results - last 24 hr 07/15/24 05:15 WBC 5.5 RBC 3.13 L Hgb 10.1 L Hct 32.1 L MCV 102.6 H MCH 32.3 MCHC 31.5 L RDW 12.7 Plt Count 157 MPV 9.8 Immature Gran % (Auto) 0.7 H Neut % (Auto) 87.4 H Lymph % (Auto) 5.4 L Maries % (Auto) 6.3 Eos % (Auto) 0.0 Baso % (Auto) 0.2 Lymph # (Auto) 0.30 L Maries # (Auto) 0.4 Eos # (Auto) 0.0 Baso # (Auto) 0.0 Abs Immat Gran (auto) 0.04 H Absolute Neuts (auto) 4.8 Absolute Nucleated RBC 0.000 Nucleated RBC % 0.0 Sodium 134 L Potassium 4.7 Chloride 96 L Carbon Dioxide 30 Anion Gap 8 BUN 52 H Creatinine 1.97 H Estim Creat Clear Calc 24 Estimated GFR 24 L Glucose 179 H Calcium 8.3 L Total Bilirubin 0.5 AST 26 ALT 15 Alkaline Phosphatase 60 Total Protein 7.0 Albumin 3.6 Quality VTE Prophylaxis VTE prophylaxis: pharmacologic ordered
--- NOTE | 2024-07-15 16:37 | PCPTNOTE ---
Attempted PT evaluation this date, however pt declined. Will continue to attempt.
[2024-07-15] MEDS: BENZONATATE 100 MG CAPSULE 200 MG PO (20:09)
[2024-07-15] MEDS: HYDROcodone/acetaminophen (*CRX) 5-325 MG TABLET 1 TAB PO (20:09)
[2024-07-15] MEDS: MONTELUKAST SODIUM 10 MG TABLET PO (20:09)
[2024-07-15] MEDS: cefuroxime axetiL 250 MG TABLET PO (20:09)
[2024-07-15] MEDS: DOXAZOSIN MESYLATE 4 MG TABLET 8 MG PO (20:09)
[2024-07-15] MEDS: FLUTICASONE PROPIONATE 0.05% NA SPR 16 GM BTL (*BKC) 1 SPRAY NASAL (20:11)
[2024-07-16] VITALS (22 sets, daily range): BP systolic 131–155; BP diastolic 52–90; PULSE 54–81; RESP 18–20; TEMP 36.1–36.6; O2SAT 95–99
[2024-07-16] MEDS: IPRATROPIUM 0.5 MG/ALBUTEROL SULFATE 2.5 MG AMPUL.NEB 3 ML INHALATION ×4 (02:30→19:56)
[2024-07-16] MEDS: HYDROcodone/acetaminophen (*CRX) 5-325 MG TABLET 1 TAB PO ×2 (03:05→20:57)
[2024-07-16 05:18] LABS: Basophils Percent Auto 0.1 % (0.2-1.2); Hematocrit 32.3 % (37.0-47.0); Hemoglobin 10.2 g/dL (12.0-15.0); Immature Granulocyte Absolute 0.05 K/mm3 (0.00-0.031); Immature Granulocyte Percent A 0.7 % (0-0.5); Lymphocytes Percent Auto 5.3 % (18.3-44.2); Mean Corpuscular HGB Conc 31.6 g/dl (32-36); Mean Corpuscular Hemoglobin 32.2 pg (26-34); Mean Corpuscular Volume 101.9 fl (80-100); Mean Platelet Volume 9.7 fl (7.4-10.4); Monocytes Absolute Auto 0.5 K/mm3 (0.1-0.6); Monocytes Percent Auto 6.8 % (2.6-8.5); Neutrophils Absolute Auto 6.6 K/mm3 (1.3-6.7); Neutrophils Percent Auto 87.1 % (45.5-73.1); Platelet Count Result 166 k/mm3 (150-375); Red Blood Count 3.17 M/mm3 (4.2-5.4); Red Cell Distribution Width 12.7 % (11.5-14.5); White Blood Count 7.6 K/mm3 (4.5-10.0)
[2024-07-16 05:32] LABS: Alanine Aminotransferase 17 U/L (6-35); Albumin Level 3.7 g/dL (3.5-5.1); Alkaline Phosphatase 59 U/L (38-126); Anion Gap 8 mmol/L (4-12); Aspartate Amino Transferase 26 U/L (14-36); Bilirubin,Total 0.6 mg/dL (0.2-1.3); Blood Urea Nitrogen 53 mg/dL (7-17); Calcium 8.2 mg/dL (8.4-10.2); Carbon Dioxide 31 mmol/L (22-30); Chloride 95 mmol/L (98-107); Estimated CRCL calculation 29 ml/min; Estimated Glomerular Filt Rate 29; Glucose 187 mg/dL (65-110); Magnesium 2.7 mg/dL (1.6-2.3); Potassium 4.8 mmol/L (3.4-5.0); Sodium 134 mmol/L (137-145)
[2024-07-16] MEDS: METOPROLOL TARTRATE 50 MG TAB PO ×2 (08:05→20:56)
[2024-07-16] MEDS: APIXABAN 5 MG TABLET PO ×2 (08:05→20:56)
[2024-07-16] MEDS: EMPAGLIFLOZIN 25 MG TABLET PO (08:05)
[2024-07-16] MEDS: guaiFENesin 12 HR 600 MG TABCR PO (08:05)
[2024-07-16] MEDS: hydrALAZINE HCL 50 MG TABLET PO ×2 (08:05→16:31)
[2024-07-16] MEDS: cefuroxime axetiL 250 MG TABLET PO ×2 (08:05→20:57)
[2024-07-16] MEDS: dilTIAZem HCL CD 180 MG CAP.24HR PO (08:05)
[2024-07-16] MEDS: dexAMETHasone SOD PHOS INJ 10 MG/ML 1 ML VIAL 6 MG IV PUSH (08:06)
--- NOTE | 2024-07-16 10:25 | P.PNIM_ITS ---
Progress Note: A&P Assessment and Plan (1) UTI (urinary tract infection): Code(s): N39.0 - Urinary tract infection, site not specified Status: Acute Assessment and Plan: * Admit to regular medical floor * Patient started on Rocephin, switched to Cefuroxime 250 mg PO q 12 on 07/15/24. * Urine culture showed E coli (2) COVID: Code(s): U07.1 - COVID-19 Status: Acute Assessment and Plan: * Supportive care. * Guaifenesin 600 mg PO q12. * Duoneb q 6. * Add Decadron 6 mg ivp daily. * Incentive spirometer. (3) Atrial fibrillation: Qualifiers: Atrial fibrillation type: longstanding persistent Qualified Code(s): I48.11 - Longstanding persistent atrial fibrillation Code(s): I48.91 - Unspecified atrial fibrillation Status: Acute Assessment and Plan: * Rate controlled anticoagulated * Continue diltiazem * Continue apixaban (4) Morbid obesity with BMI of 50.0-59.9, adult: Code(s): E66.01 - Morbid (severe) obesity due to excess calories; Z68.43 - Body mass index [BMI] 50.0-59.9, adult Status: Acute Assessment and Plan: * 1800 calorie restricted diet (5) Chronic kidney disease (CKD): Qualifiers: Chronic kidney disease stage: stage 3 (moderate) Chronic kidney disease stage 3 subtype: stage 3b (GFR 30-44) Qualified Code(s): N18.32 - Chronic kidney disease, stage 3b Code(s): N18.9 - Chronic kidney disease, unspecified Status: Acute Assessment and Plan: * Creatinine 2.40 on admission, currently 1.68. Improving. * Holding Losartan and Lasix. * Continue to monitor (6) RIMMA (acute kidney injury): Code(s): N17.9 - Acute kidney failure, unspecified Status: Acute Assessment and Plan: * Holding losartan * Daily intake and output * Renal ultrasound: FINDINGS: The right kidney measures 8.9 x 4.6 x 5.5 cm. The left kidney measures 10.6 x 5.7 x 4.8 cm. The kidneys demonstrate normal parenchymal echogenicity. There is a 14 mm cyst in left kidney. There is no hydronephrosis. The bladder is normal. IMPRESSION: 1. Mild atrophy of right kidney. No hydronephrosis. (7) Chronic acquired lymphedema: Code(s): I89.0 - Lymphedema, not elsewhere classified Status: Acute Assessment and Plan: * Wound care consult * Caregiver bringing in home pumps. (8) JOSE on CPAP: Code(s): G47.33 - Obstructive sleep apnea (adult) (pediatric); Z99.89 - Dependence on other enabling machines and devices Status: Acute Assessment and Plan: * CPAP at nighttime (9) HTN (hypertension): Qualifiers: Hypertension type: essential hypertension Qualified Code(s): I10 - Essential (primary) hypertension Code(s): I10 - Essential (primary) hypertension Status: Acute Assessment and Plan: * Holding losartan Subjective Date/time seen: 07/16/24 10:25 Interval history: Patient reports feeling better today and that breathing has improved. Patient denies chest pain, palpitations, headache, dizziness, nausea, or vomiting. Reports that her appetite is good and that she has been using her incentive spirometer. Patient reports that caregiver is bringing in her walker from home and leg pumps. Review of Systems Review of Systems: All systems reviewed & are unremarkable except as noted in HPI and below Exam Const: General: comfortable and no acute distress Resp: Effort & Inspection: normal respiratory effort Auscultation: diminished lung sounds Cardio: Rhythm: abnormal rhythm irregularly irregular (afib 59) GI: GI Palp: Yes Soft to palpation Auscultation: normal bowel sounds Other: obese Skin: Other: Chronic skin changes and discoloration bilateral lower extremity. Neuro: Speech: normal speech Extrem: Other: Chronic bilateral lower extremity swelling 4+, skin changes and discoloration. Lymphedema. 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 Psych: Mental Status: mental status grossly normal Affect: normal affect Objective Data Vital Signs Vital Signs: Vital Signs - 24 hr 07/15/24 12:00 07/15/24 13:26 07/15/24 13:38 Temperature Pulse Rate 76 54 L 55 L Respiratory Rate 20 20 Blood Pressure Pulse Oximetry Oxygen Delivery Oxygen Flow Rate 07/15/24 14:45 07/15/24 15:57 07/15/24 16:00 Temperature 97.8 F Pulse Rate 67 83 Respiratory Rate 18 Blood Pressure 144/84 H Pulse Oximetry 95 Oxygen Delivery Nasal Cannula Oxygen Flow Rate 2 07/15/24 20:00 07/15/24 20:00 07/15/24 20:03 Temperature 97.7 F Pulse Rate 83 58 L 77 Respiratory Rate 18 20 Blood Pressure 169/114 H Pulse Oximetry 95 93 Oxygen Delivery Nasal Cannula Oxygen Flow Rate 2 07/15/24 20:30 07/15/24 21:15 07/16/24 00:00 Temperature Pulse Rate 58 L 58 L 56 L Respiratory Rate 20 Blood Pressure Pulse Oximetry 91 Oxygen Delivery Nasal Cannula Oxygen Flow Rate 2 07/16/24 02:30 07/16/24 02:40 07/16/24 04:00 Temperature Pulse Rate 56 L 54 L 61 Respiratory Rate 20 20 Blood Pressure Pulse Oximetry Oxygen Delivery Oxygen Flow Rate 07/16/24 04:04 07/16/24 07:05 07/16/24 07:05 Temperature 97.8 F Pulse Rate 61 62 62 Respiratory Rate 20 18 18 Blood Pressure 136/52 L Pulse Oximetry 96 96 Oxygen Delivery Nasal Cannula Oxygen Flow Rate 2 07/16/24 07:15 07/16/24 08:02 07/16/24 08:05 Temperature 97.5 F L Pulse Rate 64 71 71 Respiratory Rate 20 20 Blood Pressure 150/90 H Pulse Oximetry 99 Oxygen Delivery Oxygen Flow Rate 07/16/24 08:05 07/16/24 08:05 Temperature Pulse Rate 71 Respiratory Rate Blood Pressure Pulse Oximetry 99 Oxygen Delivery Nasal Cannula Oxygen Flow Rate 2 Intake/Output Intake/Output: Intake & Output 07/13/24 07/14/24 07/15/24 07/16/24 23:59 23:59 23:59 23:59 Intake Total 1010 1660 1560 530 Output Total 2550 1650 1500 500 Balance -1540 10 60 30 Meds/Results Medications: Active Medications Generic Name Dose Route Start Last Admin Trade Name Freq PRN Reason Stop Dose Admin Acetaminophen 650 mg 07/12/24 20:29 07/15/24 16:16 Acetaminophen 325 Mg Tablet PO 650 mg Q4H PRN Administration Mild Pain (1-3) or Fever Hydrocodone Bitart/Acetaminophen 1 tab 07/12/24 20:29 07/16/24 03:05 Hydrocodone/Acetaminophen (*Crx) 5-325 Mg Tablet PO 1 tab Q4H PRN Administration Pain Rated 4-6 Albuterol/Ipratropium 3 ml 07/13/24 14:00 07/16/24 07:05 Ipratropium 0.5 Mg/Albuterol Sulfate 2.5 Mg Ampul.Neb 3 Ml INHALATION 3 ml Q6HRT JAYLENE Administration Apixaban 5 mg 07/13/24 09:00 07/16/24 08:05 Apixaban 5 Mg Tablet PO 5 mg Q12HR JAYLENE Administration Benzonatate 200 mg 07/13/24 10:52 07/15/24 20:09 Benzonatate 100 Mg Capsule PO 200 mg TID PRN Administration Cough Cefuroxime Axetil 250 mg 07/15/24 21:00 07/16/24 08:05 Cefuroxime Axetil 250 Mg Tablet PO 07/19/24 09:01 250 mg Q12HR JAYLENE Administration Dexamethasone Sodium Phosphate 6 mg 07/14/24 11:40 07/16/24 08:06 Dexamethasone Sod Phos Inj 10 Mg/Ml 1 Ml Vial IV PUSH 07/23/24 09:01 6 mg DAILY JAYLENE Administration Diltiazem HCl 180 mg 07/13/24 09:00 07/16/24 08:05 Diltiazem Hcl Cd 180 Mg Cap.24hr PO 180 mg DAILY JAYLENE Administration Doxazosin Mesylate 8 mg 07/13/24 21:00 07/15/24 20:09 Doxazosin Mesylate 4 Mg Tablet PO 8 mg HS JAYLENE Administration Empagliflozin 25 mg 07/13/24 09:00 07/16/24 08:05 Empagliflozin 25 Mg Tablet PO 25 mg QAM JAYLENE Administration Fluticasone Propionate 1 spray 07/14/24 21:19 07/15/24 20:11 Fluticasone Propionate 0.05% Na Spr 16 Gm Btl (*Bkc) NASAL 1 spray Q4H PRN Administration Nasal Congestion Guaifenesin 600 mg 07/13/24 21:00 07/16/24 08:05 Guaifenesin 12 Hr 600 Mg Tabcr PO 07/20/24 20:59 600 mg Q12HR JAYLENE Administration Hydralazine HCl 50 mg 07/13/24 09:00 07/16/24 08:05 Hydralazine Hcl 50 Mg Tablet PO 50 mg BID JAYLENE Administration Loratadine 10 mg 07/13/24 00:22 Loratadine 10 Mg Tablet PO DAILY PRN allergy symptoms Metoprolol Tartrate 50 mg 07/13/24 09:00 07/16/24 08:05 Metoprolol Tartrate 50 Mg Tab PO 50 mg Q12HR JAYLENE Administration Montelukast Sodium 10 mg 07/13/24 21:00 07/15/24 20:09 Montelukast Sodium 10 Mg Tablet PO 10 mg HS JAYLENE Administration Ondansetron HCl 4 mg 07/12/24 20:29 07/13/24 12:12 Ondansetron Inj 4 Mg/2 Ml Vial IV PUSH 4 mg Q4H PRN Administration Nausea Radiology Results: ITS Impressions Chest X-Ray 07/12/24 18:09 IMPRESSION: No focal infiltrate or effusion. Renal Ultrasound 07/13/24 11:42 IMPRESSION: 1. Mild atrophy of right kidney. No hydronephrosis. Labs Labs: Laboratory Results - last 24 hr 07/16/24 05:03 WBC 7.6 RBC 3.17 L Hgb 10.2 L Hct 32.3 L MCV 101.9 H MCH 32.2 MCHC 31.6 L RDW 12.7 Plt Count 166 MPV 9.7 Immature Gran % (Auto) 0.7 H Neut % (Auto) 87.1 H Lymph % (Auto) 5.3 L [place] % (Auto) 6.8 Eos % (Auto) 0.0 Baso % (Auto) 0.1 L Lymph # (Auto) 0.40 L [place] # (Auto) 0.5 Eos # (Auto) 0.0 Baso # (Auto) 0.0 Abs Immat Gran (auto) 0.05 H Absolute Neuts (auto) 6.6 Absolute Nucleated RBC 0.000 Nucleated RBC % 0.0 Sodium 134 L Potassium 4.8 Chloride 95 L Carbon Dioxide 31 H Anion Gap 8 BUN 53 H Creatinine 1.68 H Estim Creat Clear Calc 29 Estimated GFR 29 L Glucose 187 H Calcium 8.2 L Magnesium 2.7 H Total Bilirubin 0.6 AST 26 ALT 17 Alkaline Phosphatase 59 Total Protein 7.0 Albumin 3.7 Quality VTE Prophylaxis VTE prophylaxis: pharmacologic ordered
[2024-07-16] MEDS: BENZONATATE 100 MG CAPSULE 200 MG PO (16:31)
[2024-07-16] MEDS: ACETAMINOPHEN 325 MG TABLET 650 MG PO (16:31)
[2024-07-16] MEDS: MONTELUKAST SODIUM 10 MG TABLET PO (20:56)
[2024-07-16] MEDS: DOXAZOSIN MESYLATE 4 MG TABLET 8 MG PO (20:56)
[2024-07-17] VITALS (23 sets, daily range): BP systolic 124–155; BP diastolic 50–90; PULSE 51–80; RESP 14–20; TEMP 36.4–36.9; O2SAT 92–97
[2024-07-17] MEDS: IPRATROPIUM 0.5 MG/ALBUTEROL SULFATE 2.5 MG AMPUL.NEB 3 ML INHALATION ×4 (02:36→20:00)
[2024-07-17 06:16] LABS: Basophils Percent Auto 0.1 % (0.2-1.2); Hematocrit 31.5 % (37.0-47.0); Hemoglobin 10.3 g/dL (12.0-15.0); Immature Granulocyte Absolute 0.06 K/mm3 (0.00-0.031); Immature Granulocyte Percent A 0.7 % (0-0.5); Lymphocytes Absolute Auto 0.57 K/mm3 (0.9-3.2); Lymphocytes Percent Auto 6.5 % (18.3-44.2); Mean Corpuscular HGB Conc 32.7 g/dl (32-36); Mean Corpuscular Hemoglobin 33.2 pg (26-34); Mean Corpuscular Volume 101.6 fl (80-100); Mean Platelet Volume 9.9 fl (7.4-10.4); Monocytes Absolute Auto 0.6 K/mm3 (0.1-0.6); Monocytes Percent Auto 6.9 % (2.6-8.5); Neutrophils Absolute Auto 7.5 K/mm3 (1.3-6.7); Neutrophils Percent Auto 85.8 % (45.5-73.1); Platelet Count Result 162 k/mm3 (150-375); Red Cell Distribution Width 12.6 % (11.5-14.5); White Blood Count 8.7 K/mm3 (4.5-10.0)
[2024-07-17 06:34] LABS: Alanine Aminotransferase 19 U/L (6-35); Albumin Level 3.7 g/dL (3.5-5.1); Alkaline Phosphatase 64 U/L (38-126); Anion Gap 9 mmol/L (4-12); Aspartate Amino Transferase 27 U/L (14-36); Bilirubin,Total 0.7 mg/dL (0.2-1.3); Blood Urea Nitrogen 55 mg/dL (7-17); Calcium 8.5 mg/dL (8.4-10.2); Carbon Dioxide 29 mmol/L (22-30); Chloride 96 mmol/L (98-107); Estimated CRCL calculation 28 ml/min; Estimated Glomerular Filt Rate 29; Glucose 184 mg/dL (65-110); Potassium 4.8 mmol/L (3.4-5.0); Sodium 134 mmol/L (137-145)
[2024-07-17] MEDS: dilTIAZem HCL CD 180 MG CAP.24HR PO (09:19)
[2024-07-17] MEDS: hydrALAZINE HCL 50 MG TABLET PO (09:19)
[2024-07-17] MEDS: cefuroxime axetiL 250 MG TABLET PO ×2 (09:20→20:35)
[2024-07-17] MEDS: APIXABAN 5 MG TABLET PO ×2 (09:20→20:35)
[2024-07-17] MEDS: HYDROcodone/acetaminophen (*CRX) 5-325 MG TABLET 1 TAB PO (09:20)
[2024-07-17] MEDS: METOPROLOL TARTRATE 50 MG TAB PO ×2 (09:20→20:35)
[2024-07-17] MEDS: dexAMETHasone SOD PHOS INJ 10 MG/ML 1 ML VIAL 6 MG IV PUSH (09:21)
[2024-07-17] MEDS: EMPAGLIFLOZIN 25 MG TABLET PO (09:21)
[2024-07-17] MEDS: guaiFENesin 12 HR 600 MG TABCR PO ×2 (09:21→20:35)
--- NOTE | 2024-07-17 10:42 | P.PNIM_ITS ---
Progress Note: A&P Assessment and Plan (1) UTI (urinary tract infection): Code(s): N39.0 - Urinary tract infection, site not specified Status: Acute Assessment and Plan: * Admit to regular medical floor * Patient started on Rocephin, switched to Cefuroxime 250 mg PO q 12 on 07/15/24. * Urine culture showed E coli 07/17/24: * Continue abx. * Monitor renal function. (2) COVID: Code(s): U07.1 - COVID-19 Status: Acute Assessment and Plan: * Supportive care. * Guaifenesin 600 mg PO q12. * Duoneb q 6. * Add Decadron 6 mg ivp daily. * Incentive spirometer. 07/17/24: * Continue supportive care. * CXR in AM * Add budesonide nebulizer Q12 hrs for continued wheezing. * Wean oxygen as able to. (3) Atrial fibrillation: Qualifiers: Atrial fibrillation type: longstanding persistent Qualified Code(s): I48.11 - Longstanding persistent atrial fibrillation Code(s): I48.91 - Unspecified atrial fibrillation Status: Acute Assessment and Plan: * Rate controlled anticoagulated * Continue diltiazem * Continue apixaban (4) Morbid obesity with BMI of 50.0-59.9, adult: Code(s): E66.01 - Morbid (severe) obesity due to excess calories; Z68.43 - Body mass index [BMI] 50.0-59.9, adult Status: Acute Assessment and Plan: * 1800 calorie restricted diet (5) Chronic kidney disease (CKD): Qualifiers: Chronic kidney disease stage: stage 3 (moderate) Chronic kidney disease stage 3 subtype: stage 3b (GFR 30-44) Qualified Code(s): N18.32 - Chronic kidney disease, stage 3b Code(s): N18.9 - Chronic kidney disease, unspecified Status: Acute Assessment and Plan: * Creatinine 2.40 on admission, currently 1.68. Improving. * Holding Losartan and Lasix. * Continue to monitor 07/17/24: * Stable renal function today at 1.7/55. * Continue to monitor and trend renal function. * Continue to hold Lasix and Losartan. (6) RIMMA (acute kidney injury): Code(s): N17.9 - Acute kidney failure, unspecified Status: Acute Assessment and Plan: * Holding losartan * Daily intake and output * Renal ultrasound: FINDINGS: The right kidney measures 8.9 x 4.6 x 5.5 cm. The left kidney measures 10.6 x 5.7 x 4.8 cm. The kidneys demonstrate normal parenchymal echogenicity. There is a 14 mm cyst in left kidney. There is no hydronephrosis. The bladder is normal. IMPRESSION: 1. Mild atrophy of right kidney. No hydronephrosis. 07/17/24: * See #5 above (7) Chronic acquired lymphedema: Code(s): I89.0 - Lymphedema, not elsewhere classified Status: Chronic Assessment and Plan: * Wound care consult * Caregiver bringing in home pumps. 07/17/24: * Wear home lymphedema pumps (8) JOSE on CPAP: Code(s): G47.33 - Obstructive sleep apnea (adult) (pediatric); Z99.89 - Dependence on other enabling machines and devices Status: Chronic Assessment and Plan: * CPAP at nighttime 07/17/24: * Continue home CPAP. (9) HTN (hypertension): Qualifiers: Hypertension type: essential hypertension Qualified Code(s): I10 - Essential (primary) hypertension Code(s): I10 - Essential (primary) hypertension Status: Acute Assessment and Plan: * Holding losartan 07/17/24: * BP borderline high with holding of Losartan, running 140s-150s/50s-100s. * If renal function is improved or at baseline tomorrow, consider restarting Losartan. * PRN Hydralazine ordered at this time as needed. Time Spent With Patient Time with patient: 15 - 25 minutes Subjective Date/time seen: 07/17/24 10:00 Interval history: Pt evaluated at bedside and she reports some interval improvement in how she feels overall. She remains on Cefuroxime until the 7th, She has a stable RIMMA. Her breath sounds today remain very wheezy. She complains of discomfort on the buttocks from sitting in the bed, but no other complaints. Her family has brought her compression for her Lymphedema and her walker. Review of Systems Review of Systems: All systems reviewed & are unremarkable except as noted in HPI and below Exam Const: General: comfortable and no acute distress HENMT: Mouth: Yes moist mucous membranes Eyes: General: appearance normal, both eyes and all related structures Neck: Neck: supple and no JVD Resp: Effort & Inspection: normal respiratory effort Auscultation: wheezes Cardio: Rate: regular rate Rhythm: regular rhythm Heart sounds: no gallops, no murmurs and no rubs GI: GI Palp: Yes Soft to palpation and No Tenderness to palpation present (GI) Auscultation: normal bowel sounds Skin: General skin exam: normal color, no rashes or lesions noted and erythema Lesions: no lesions noted Rashes: no rashes noted Wounds: no wounds Neuro: General: gait normal (aided with walker which is baseline for pt.) Speech: normal speech Motor exam (neuro): 5/5 motor strength present throughout and Normal motor muscle tone present throughout Sensory Exam: normal sensation Extrem: General: edema (Lymphedema present.) bilateral Psych: Mental Status: mental status grossly normal Affect: normal affect Objective Data Vital Signs Vital Signs: Vital Signs - 24 hr 07/16/24 12:00 07/16/24 12:50 07/16/24 13:00 Temperature Pulse Rate 60 64 63 Respiratory Rate 20 20 Blood Pressure Pulse Oximetry Oxygen Delivery Oxygen Flow Rate 07/16/24 13:32 07/16/24 16:00 07/16/24 16:27 Temperature 97.3 F L 96.9 F L Pulse Rate 63 70 64 Respiratory Rate 18 20 Blood Pressure 131/52 L 153/57 H Pulse Oximetry 98 95 Oxygen Delivery Oxygen Flow Rate 07/16/24 19:56 07/16/24 19:57 07/16/24 20:00 Temperature Pulse Rate 64 71 Respiratory Rate 20 Blood Pressure Pulse Oximetry 95 Oxygen Delivery Nasal Cannula Oxygen Flow Rate 2 07/16/24 20:10 07/16/24 20:27 07/16/24 20:56 Temperature 97.8 F Pulse Rate 62 71 81 Respiratory Rate 20 20 Blood Pressure 155/68 H Pulse Oximetry 95 Oxygen Delivery Oxygen Flow Rate 07/16/24 21:00 07/17/24 00:04 07/17/24 02:37 Temperature Pulse Rate 81 69 71 Respiratory Rate 20 20 Blood Pressure Pulse Oximetry 95 Oxygen Delivery Nasal Cannula Oxygen Flow Rate 2 07/17/24 02:46 07/17/24 03:14 07/17/24 04:42 Temperature 97.7 F Pulse Rate 64 51 L 62 Respiratory Rate 20 20 Blood Pressure 124/90 Pulse Oximetry 94 Oxygen Delivery Oxygen Flow Rate 07/17/24 08:37 07/17/24 08:37 07/17/24 08:50 Temperature Pulse Rate 63 60 Respiratory Rate 20 20 Blood Pressure Pulse Oximetry 92 Oxygen Delivery Nasal Cannula Oxygen Flow Rate 2 07/17/24 09:20 07/17/24 09:20 07/17/24 09:28 Temperature 97.6 F Pulse Rate 72 80 Respiratory Rate 18 Blood Pressure 155/84 H Pulse Oximetry 97 97 Oxygen Delivery Nasal Cannula Oxygen Flow Rate 2 Intake/Output Intake/Output: Intake & Output 07/14/24 07/15/24 07/16/24 07/17/24 23:59 23:59 23:59 23:59 Intake Total 1660 1560 1250 290 Output Total 1650 1500 1600 300 Balance 10 60 -350 -10 Meds/Results Medications: Active Medications Generic Name Dose Route Start Last Admin Trade Name Freq PRN Reason Stop Dose Admin Acetaminophen 650 mg 07/12/24 20:29 07/16/24 16:31 Acetaminophen 325 Mg Tablet PO 650 mg Q4H PRN Administration Mild Pain (1-3) or Fever Hydrocodone Bitart/Acetaminophen 1 tab 07/12/24 20:29 07/17/24 09:20 Hydrocodone/Acetaminophen (*Crx) 5-325 Mg Tablet PO 1 tab Q4H PRN Administration Pain Rated 4-6 Albuterol/Ipratropium 3 ml 07/13/24 14:00 07/17/24 08:37 Ipratropium 0.5 Mg/Albuterol Sulfate 2.5 Mg Ampul.Neb 3 Ml INHALATION 3 ml Q6HRT JAYLENE Administration Apixaban 5 mg 07/13/24 09:00 07/17/24 09:20 Apixaban 5 Mg Tablet PO 5 mg Q12HR JAYLENE Administration Benzonatate 200 mg 07/13/24 10:52 07/16/24 16:31 Benzonatate 100 Mg Capsule PO 200 mg TID PRN Administration Cough Cefuroxime Axetil 250 mg 07/15/24 21:00 07/17/24 09:20 Cefuroxime Axetil 250 Mg Tablet PO 07/19/24 09:01 250 mg Q12HR JAYLENE Administration Dexamethasone Sodium Phosphate 6 mg 07/14/24 11:40 07/17/24 09:21 Dexamethasone Sod Phos Inj 10 Mg/Ml 1 Ml Vial IV PUSH 07/23/24 09:01 6 mg DAILY JAYLENE Administration Diltiazem HCl 180 mg 07/13/24 09:00 07/17/24 09:19 Diltiazem Hcl Cd 180 Mg Cap.24hr PO 180 mg DAILY JAYLENE Administration Doxazosin Mesylate 8 mg 07/13/24 21:00 07/16/24 20:56 Doxazosin Mesylate 4 Mg Tablet PO 8 mg HS JAYLENE Administration Empagliflozin 25 mg 07/13/24 09:00 07/17/24 09:21 Empagliflozin 25 Mg Tablet PO 25 mg QAM JAYLENE Administration Fluticasone Propionate 1 spray 07/14/24 21:19 07/15/24 20:11 Fluticasone Propionate 0.05% Na Spr 16 Gm Btl (*Bkc) NASAL 1 spray Q4H PRN Administration Nasal Congestion Guaifenesin 600 mg 07/13/24 21:00 07/17/24 09:21 Guaifenesin 12 Hr 600 Mg Tabcr PO 07/20/24 20:59 600 mg Q12HR JAYLENE Administration Hydralazine HCl 50 mg 07/13/24 09:00 07/17/24 09:19 Hydralazine Hcl 50 Mg Tablet PO 50 mg BID JAYLENE Administration Loratadine 10 mg 07/13/24 00:22 Loratadine 10 Mg Tablet PO DAILY PRN allergy symptoms Metoprolol Tartrate 50 mg 07/13/24 09:00 07/17/24 09:20 Metoprolol Tartrate 50 Mg Tab PO 50 mg Q12HR JAYLENE Administration Montelukast Sodium 10 mg 07/13/24 21:00 07/16/24 20:56 Montelukast Sodium 10 Mg Tablet PO 10 mg HS JAYLENE Administration Ondansetron HCl 4 mg 07/12/24 20:29 07/13/24 12:12 Ondansetron Inj 4 Mg/2 Ml Vial IV PUSH 4 mg Q4H PRN Administration Nausea Polyethylene Glycol 17 gm 07/16/24 10:25 Polyethylene Glycol 3350 17 Gm Powd.Pack PO QAM PRN Constipation Radiology Results: ITS Impressions Chest X-Ray 07/12/24 18:09 IMPRESSION: No focal infiltrate or effusion. Renal Ultrasound 07/13/24 11:42 IMPRESSION: 1. Mild atrophy of right kidney. No hydronephrosis. Labs Labs: Laboratory Results - last 24 hr 07/17/24 06:07 WBC 8.7 RBC 3.10 L Hgb 10.3 L Hct 31.5 L MCV 101.6 H MCH 33.2 MCHC 32.7 RDW 12.6 Plt Count 162 MPV 9.9 Immature Gran % (Auto) 0.7 H Neut % (Auto) 85.8 H Lymph % (Auto) 6.5 L [place] % (Auto) 6.9 Eos % (Auto) 0.0 Baso % (Auto) 0.1 L Lymph # (Auto) 0.57 L [place] # (Auto) 0.6 Eos # (Auto) 0.0 Baso # (Auto) 0.0 Abs Immat Gran (auto) 0.06 H Absolute Neuts (auto) 7.5 H Absolute Nucleated RBC 0.000 Nucleated RBC % 0.0 Sodium 134 L Potassium 4.8 Chloride 96 L Carbon Dioxide 29 Anion Gap 9 BUN 55 H Creatinine 1.70 H Estim Creat Clear Calc 28 Estimated GFR 29 L Glucose 184 H Calcium 8.5 Total Bilirubin 0.7 AST 27 ALT 19 Alkaline Phosphatase 64 Total Protein 7.0 Albumin 3.7 Quality VTE Prophylaxis VTE prophylaxis: pharmacologic ordered
[2024-07-17] MEDS: BUDESONIDE RESPULE NEB 0.5 MG/2 ML AMP INHALATION (20:00)
[2024-07-17] MEDS: MONTELUKAST SODIUM 10 MG TABLET PO (20:35)
[2024-07-17] MEDS: DOXAZOSIN MESYLATE 4 MG TABLET 8 MG PO (20:35)
[2024-07-18] VITALS (21 sets, daily range): BP systolic 138–146; BP diastolic 54–69; PULSE 50–81; RESP 14–20; TEMP 36.4–36.6; O2SAT 91–94
[2024-07-18] MEDS: IPRATROPIUM 0.5 MG/ALBUTEROL SULFATE 2.5 MG AMPUL.NEB 3 ML INHALATION ×4 (02:14→20:23)
[2024-07-18 05:48] LABS: Basophils Percent Auto 0.1 % (0.2-1.2); Hematocrit 30.1 % (37.0-47.0); Hemoglobin 9.7 g/dL (12.0-15.0); Immature Granulocyte Absolute 0.12 K/mm3 (0.00-0.031); Immature Granulocyte Percent A 1.3 % (0-0.5); Lymphocytes Absolute Auto 0.59 K/mm3 (0.9-3.2); Lymphocytes Percent Auto 6.6 % (18.3-44.2); Mean Corpuscular HGB Conc 32.2 g/dl (32-36); Mean Corpuscular Hemoglobin 32.2 pg (26-34); Mean Platelet Volume 9.9 fl (7.4-10.4); Monocytes Absolute Auto 0.6 K/mm3 (0.1-0.6); Monocytes Percent Auto 6.9 % (2.6-8.5); Neutrophils Absolute Auto 7.6 K/mm3 (1.3-6.7); Neutrophils Percent Auto 85.1 % (45.5-73.1); Platelet Count Result 165 k/mm3 (150-375); Red Blood Count 3.01 M/mm3 (4.2-5.4); Red Cell Distribution Width 12.8 % (11.5-14.5); White Blood Count 8.9 K/mm3 (4.5-10.0)
[2024-07-18 05:59] LABS: Alanine Aminotransferase 23 U/L (6-35); Albumin Level 3.7 g/dL (3.5-5.1); Alkaline Phosphatase 66 U/L (38-126); Anion Gap 10 mmol/L (4-12); Aspartate Amino Transferase 28 U/L (14-36); Bilirubin,Total 0.7 mg/dL (0.2-1.3); Blood Urea Nitrogen 59 mg/dL (7-17); Calcium 8.5 mg/dL (8.4-10.2); Carbon Dioxide 27 mmol/L (22-30); Chloride 96 mmol/L (98-107); Estimated CRCL calculation 30 ml/min; Estimated Glomerular Filt Rate 31; Glucose 229 mg/dL (65-110); Potassium 5.2 mmol/L (3.4-5.0); Sodium 133 mmol/L (137-145)
[2024-07-18] MEDS: BUDESONIDE RESPULE NEB 0.5 MG/2 ML AMP INHALATION ×2 (07:41→20:23)
[2024-07-18] MEDS: FUROSEMIDE 40 MG TABLET PO (08:50)
[2024-07-18] MEDS: dilTIAZem HCL CD 180 MG CAP.24HR PO (08:50)
[2024-07-18] MEDS: cefuroxime axetiL 250 MG TABLET PO ×2 (08:50→20:50)
[2024-07-18] MEDS: dexAMETHasone SOD PHOS INJ 10 MG/ML 1 ML VIAL 6 MG IV PUSH (08:50)
[2024-07-18] MEDS: guaiFENesin 12 HR 600 MG TABCR PO ×2 (08:50→20:50)
[2024-07-18] MEDS: APIXABAN 5 MG TABLET PO ×2 (08:50→20:50)
[2024-07-18] MEDS: EMPAGLIFLOZIN 25 MG TABLET PO (08:50)
[2024-07-18] MEDS: hydrALAZINE HCL 50 MG TABLET PO ×2 (08:51→16:27)
[2024-07-18] MEDS: METOPROLOL TARTRATE 50 MG TAB PO ×2 (08:51→20:50)
--- NOTE | 2024-07-18 12:21 | P.PNIM_ITS ---
Progress Note: A&P Assessment and Plan (1) UTI (urinary tract infection): Code(s): N39.0 - Urinary tract infection, site not specified Status: Acute Assessment and Plan: * Admit to regular medical floor * Patient started on Rocephin, switched to Cefuroxime 250 mg PO q 12 on 07/15/24. * Urine culture showed E coli 07/17/24: * Continue abx. * Monitor renal function. 07/18/24: * Continue abx. * Renal function stable. (2) COVID: Code(s): U07.1 - COVID-19 Status: Acute Assessment and Plan: * Supportive care. * Guaifenesin 600 mg PO q12. * Duoneb q 6. * Add Decadron 6 mg ivp daily. * Incentive spirometer. 07/17/24: * Continue supportive care. * CXR in AM * Add budesonide nebulizer Q12 hrs for continued wheezing. * Wean oxygen as able to. 07/18/24: * Oxygen weaned to 1L. * CXR this AM showing no infection, but there is change of central congestion. * Lasix restarted today, anticipate improvement in fluid volume. (3) Atrial fibrillation: Qualifiers: Atrial fibrillation type: longstanding persistent Qualified Code(s): I48.11 - Longstanding persistent atrial fibrillation Code(s): I48.91 - Unspecified atrial fibrillation Status: Acute Assessment and Plan: * Rate controlled anticoagulated * Continue diltiazem * Continue apixaban (4) Morbid obesity with BMI of 50.0-59.9, adult: Code(s): E66.01 - Morbid (severe) obesity due to excess calories; Z68.43 - Body mass index [BMI] 50.0-59.9, adult Status: Acute Assessment and Plan: * 1800 calorie restricted diet (5) Chronic kidney disease (CKD): Qualifiers: Chronic kidney disease stage: stage 3 (moderate) Chronic kidney disease stage 3 subtype: stage 3b (GFR 30-44) Qualified Code(s): N18.32 - Chronic kidney disease, stage 3b Code(s): N18.9 - Chronic kidney disease, unspecified Status: Acute Assessment and Plan: * Creatinine 2.40 on admission, currently 1.68. Improving. * Holding Losartan and Lasix. * Continue to monitor 07/17/24: * Stable renal function today at 1.7/55. * Continue to monitor and trend renal function. * Continue to hold Lasix and Losartan. 07/18/24: * Lasix restarted in the setting of having central vascular congestion on CXR this morning in the setting that her Lasix had been held. * Cr/BUN is stable at 1.59/59 (6) RIMMA (acute kidney injury): Code(s): N17.9 - Acute kidney failure, unspecified Status: Acute Assessment and Plan: * Holding losartan * Daily intake and output * Renal ultrasound: FINDINGS: The right kidney measures 8.9 x 4.6 x 5.5 cm. The left kidney measures 10.6 x 5.7 x 4.8 cm. The kidneys demonstrate normal parenchymal echogenicity. There is a 14 mm cyst in left kidney. There is no hydronephrosis. The bladder is normal. IMPRESSION: 1. Mild atrophy of right kidney. No hydronephrosis. 07/17/24: * See #5 above 07/18/24: * Improving (7) Chronic acquired lymphedema: Code(s): I89.0 - Lymphedema, not elsewhere classified Status: Chronic Assessment and Plan: * Wound care consult * Caregiver bringing in home pumps. 07/17/24: * Wear home lymphedema pumps (8) JOSE on CPAP: Code(s): G47.33 - Obstructive sleep apnea (adult) (pediatric); Z99.89 - Dependence on other enabling machines and devices Status: Chronic Assessment and Plan: * CPAP at nighttime 07/17/24: * Continue home CPAP. (9) HTN (hypertension): Qualifiers: Hypertension type: essential hypertension Qualified Code(s): I10 - Essential (primary) hypertension Code(s): I10 - Essential (primary) hypertension Status: Acute Assessment and Plan: * Holding losartan 07/17/24: * BP borderline high with holding of Losartan, running 140s-150s/50s-100s. * If renal function is improved or at baseline tomorrow, consider restarting Losartan. * PRN Hydralazine ordered at this time as needed. 07/18/24: * BP still running higher than desired at 140s-150s/50s-80s. * Restarting Lasix 40 mg daily. * Suspect that Lasix will assist with lowering of BP. Time Spent With Patient Time with patient: 25 - 35 minutes Subjective Date/time seen: 07/18/24 0900 Interval history: Pt examined at the bedside today, reports she is feeling a little better. She is still having some difficulty with mobility and she is on the fence regarding [facility] vs. Home with home health, but she will not go to a SNF. She has marginal increase in her Potassium level today to 5.2, and her Lasix 40 mg is added back as her renal function is stable. Her oxygen has been weaned to 1L today, and we are hoping that the addition of the Lasix will help even further. Blood cultures remain preliminarily negative. She continues on Cefuroxime. Review of Systems Review of Systems: All systems reviewed & are unremarkable except as noted in HPI and below Exam Const: General: comfortable and no acute distress HENMT: Mouth: Yes moist mucous membranes Eyes: General: appearance normal, both eyes and all related structures Neck: Neck: supple and no JVD Resp: Effort & Inspection: normal respiratory effort Auscultation: wheezes Cardio: Rate: regular rate Rhythm: regular rhythm Heart sounds: no gallops, no murmurs and no rubs GI: Auscultation: normal bowel sounds Skin: General skin exam: normal color, no rashes or lesions noted, erythema, N o lesion and No rashes Lesions: no lesions noted Rashes: no rashes noted Wounds: no wounds Neuro: General: gait normal (aided with walker which is baseline for pt.) Speech: normal speech Motor exam (neuro): 5/5 motor strength present throughout and Normal motor muscle tone present throughout Sensory Exam: normal sensation Extrem: General: edema (Lymphedema present.) bilateral Psych: Mental Status: mental status grossly normal Affect: normal affect Objective Data Vital Signs Vital Signs: Vital Signs - 24 hr 07/17/24 14:00 07/17/24 14:30 07/17/24 14:41 Temperature 98.4 F Pulse Rate 70 60 55 L Respiratory Rate 14 20 20 Blood Pressure 148/50 H Pulse Oximetry 97 Oxygen Delivery Oxygen Flow Rate 07/17/24 16:00 07/17/24 20:00 07/17/24 20:01 Temperature Pulse Rate 54 L 62 62 Respiratory Rate 20 Blood Pressure Pulse Oximetry Oxygen Delivery Oxygen Flow Rate 07/17/24 20:04 07/17/24 20:21 07/17/24 20:30 Temperature Pulse Rate 62 58 L 79 Respiratory Rate 20 20 Blood Pressure Pulse Oximetry 93 93 Oxygen Delivery Nasal Cannula Room Air Oxygen Flow Rate 2 07/17/24 20:35 07/17/24 21:05 07/17/24 21:11 Temperature 97.6 F Pulse Rate 79 63 73 Respiratory Rate 18 Blood Pressure 147/58 H Pulse Oximetry 92 95 Oxygen Delivery CPAP Oxygen Flow Rate 07/18/24 00:04 07/18/24 02:14 07/18/24 02:22 Temperature Pulse Rate 64 64 60 Respiratory Rate 20 20 Blood Pressure Pulse Oximetry Oxygen Delivery Oxygen Flow Rate 07/18/24 04:00 07/18/24 05:08 07/18/24 07:43 Temperature 97.9 F Pulse Rate 62 60 Respiratory Rate 20 Blood Pressure 146/54 H Pulse Oximetry 93 92 Oxygen Delivery Nasal Cannula Oxygen Flow Rate 2 07/18/24 07:43 07/18/24 08:00 07/18/24 08:00 Temperature Pulse Rate 65 60 61 Respiratory Rate 20 20 Blood Pressure Pulse Oximetry Oxygen Delivery Oxygen Flow Rate 07/18/24 08:50 07/18/24 08:51 Temperature Pulse Rate 66 Respiratory Rate Blood Pressure Pulse Oximetry 92 Oxygen Delivery Nasal Cannula Oxygen Flow Rate 1 Intake/Output Intake/Output: Intake & Output 07/15/24 07/16/24 07/17/24 07/18/24 23:59 23:59 23:59 23:59 Intake Total 1560 1250 1830 730 Output Total 1500 1600 1000 Balance 60 -350 830 730 Meds/Results Medications: Active Medications Generic Name Dose Route Start Last Admin Trade Name Freq PRN Reason Stop Dose Admin Acetaminophen 650 mg 07/12/24 20:29 07/16/24 16:31 Acetaminophen 325 Mg Tablet PO 650 mg Q4H PRN Administration Mild Pain (1-3) or Fever Hydrocodone Bitart/Acetaminophen 1 tab 07/12/24 20:29 07/17/24 09:20 Hydrocodone/Acetaminophen (*Crx) 5-325 Mg Tablet PO 1 tab Q4H PRN Administration Pain Rated 4-6 Albuterol/Ipratropium 3 ml 07/13/24 14:00 07/18/24 07:42 Ipratropium 0.5 Mg/Albuterol Sulfate 2.5 Mg Ampul.Neb 3 Ml INHALATION 3 ml Q6HRT JAYLENE Administration Apixaban 5 mg 07/13/24 09:00 07/18/24 08:50 Apixaban 5 Mg Tablet PO 5 mg Q12HR JAYLENE Administration Benzonatate 200 mg 07/13/24 10:52 07/16/24 16:31 Benzonatate 100 Mg Capsule PO 200 mg TID PRN Administration Cough Budesonide 0.5 mg 07/17/24 20:00 07/18/24 07:41 Budesonide Respule Neb 0.5 Mg/2 Ml Amp INHALATION 0.5 mg Q12HRT JAYLENE Administration Cefuroxime Axetil 250 mg 07/15/24 21:00 07/18/24 08:50 Cefuroxime Axetil 250 Mg Tablet PO 07/19/24 09:01 250 mg Q12HR JAYLENE Administration Dexamethasone Sodium Phosphate 6 mg 07/14/24 11:40 07/18/24 08:50 Dexamethasone Sod Phos Inj 10 Mg/Ml 1 Ml Vial IV PUSH 07/23/24 09:01 6 mg DAILY JAYLENE Administration Diltiazem HCl 180 mg 07/13/24 09:00 07/18/24 08:50 Diltiazem Hcl Cd 180 Mg Cap.24hr PO 180 mg DAILY JAYLENE Administration Doxazosin Mesylate 8 mg 07/13/24 21:00 07/17/24 20:35 Doxazosin Mesylate 4 Mg Tablet PO 8 mg HS JAYLENE Administration Empagliflozin 25 mg 07/13/24 09:00 07/18/24 08:50 Empagliflozin 25 Mg Tablet PO 25 mg QAM JAYLENE Administration Fluticasone Propionate 1 spray 07/14/24 21:19 07/15/24 20:11 Fluticasone Propionate 0.05% Na Spr 16 Gm Btl (*Bkc) NASAL 1 spray Q4H PRN Administration Nasal Congestion Furosemide 40 mg 07/18/24 09:00 07/18/24 08:50 Furosemide 40 Mg Tablet PO 40 mg DAILY JAYLENE Administration Guaifenesin 600 mg 07/13/24 21:00 07/18/24 08:50 Guaifenesin 12 Hr 600 Mg Tabcr PO 07/20/24 20:59 600 mg Q12HR JAYLENE Administration Hydralazine HCl 50 mg 07/13/24 09:00 07/18/24 08:51 Hydralazine Hcl 50 Mg Tablet PO 50 mg BID JAYLENE Administration Hydralazine HCl 10 mg 07/17/24 10:51 Hydralazine 10 Mg Tablet PO QID PRN Hypertension Loratadine 10 mg 07/13/24 00:22 Loratadine 10 Mg Tablet PO DAILY PRN allergy symptoms Metoprolol Tartrate 50 mg 07/13/24 09:00 07/18/24 08:51 Metoprolol Tartrate 50 Mg Tab PO 50 mg Q12HR JAYLENE Administration Montelukast Sodium 10 mg 07/13/24 21:00 07/17/24 20:35 Montelukast Sodium 10 Mg Tablet PO 10 mg HS JAYLENE Administration Ondansetron HCl 4 mg 07/12/24 20:29 07/13/24 12:12 Ondansetron Inj 4 Mg/2 Ml Vial IV PUSH 4 mg Q4H PRN Administration Nausea Polyethylene Glycol 17 gm 07/16/24 10:25 Polyethylene Glycol 3350 17 Gm Powd.Pack PO QAM PRN Constipation Radiology Results: ITS Impressions Renal Ultrasound 07/13/24 11:42 IMPRESSION: 1. Mild atrophy of right kidney. No hydronephrosis. Chest X-Ray 07/18/24 06:46 Impression: Central pulmonary venous congestive change. Stable cardiomegaly. Labs Labs: Laboratory Results - last 24 hr 07/18/24 05:35 WBC 8.9 RBC 3.01 L Hgb 9.7 L Hct 30.1 L MCV 100.0 MCH 32.2 MCHC 32.2 RDW 12.8 Plt Count 165 MPV 9.9 Immature Gran % (Auto) 1.3 H Neut % (Auto) 85.1 H Lymph % (Auto) 6.6 L [place] % (Auto) 6.9 Eos % (Auto) 0.0 Baso % (Auto) 0.1 L Lymph # (Auto) 0.59 L [place] # (Auto) 0.6 Eos # (Auto) 0.0 Baso # (Auto) 0.0 Abs Immat Gran (auto) 0.12 H Absolute Neuts (auto) 7.6 H Absolute Nucleated RBC 0.000 Nucleated RBC % 0.0 Sodium 133 L Potassium 5.2 H Chloride 96 L Carbon Dioxide 27 Anion Gap 10 BUN 59 H Creatinine 1.59 H Estim Creat Clear Calc 30 Estimated GFR 31 L Glucose 229 H Calcium 8.5 Total Bilirubin 0.7 AST 28 ALT 23 Alkaline Phosphatase 66 Total Protein 7.0 Albumin 3.7 Quality VTE Prophylaxis VTE prophylaxis: pharmacologic ordered
[2024-07-18] MEDS: polyethylene glycoL 3350 17 GM POWD.PACK PO (15:06)
[2024-07-18] MEDS: MONTELUKAST SODIUM 10 MG TABLET PO (20:50)
[2024-07-18] MEDS: DOXAZOSIN MESYLATE 4 MG TABLET 8 MG PO (20:50)
[2024-07-18] MEDS: ACETAMINOPHEN 325 MG TABLET 650 MG PO (21:10)
[2024-07-19] VITALS (16 sets, daily range): BP systolic 127–153; BP diastolic 52–54; PULSE 50–75; RESP 18–20; TEMP 36.4–36.6; O2SAT 91–95
[2024-07-19] MEDS: IPRATROPIUM 0.5 MG/ALBUTEROL SULFATE 2.5 MG AMPUL.NEB 3 ML INHALATION ×4 (03:10→19:47)
[2024-07-19 06:13] LABS: Basophils Percent Auto 0.2 % (0.2-1.2); Hematocrit 30.1 % (37.0-47.0); Hemoglobin 9.9 g/dL (12.0-15.0); Immature Granulocyte Absolute 0.17 K/mm3 (0.00-0.031); Immature Granulocyte Percent A 1.7 % (0-0.5); Lymphocytes Absolute Auto 0.75 K/mm3 (0.9-3.2); Lymphocytes Percent Auto 7.6 % (18.3-44.2); Mean Corpuscular HGB Conc 32.9 g/dl (32-36); Mean Corpuscular Hemoglobin 32.8 pg (26-34); Mean Corpuscular Volume 99.7 fl (80-100); Mean Platelet Volume 10.1 fl (7.4-10.4); Monocytes Absolute Auto 0.7 K/mm3 (0.1-0.6); Monocytes Percent Auto 7.1 % (2.6-8.5); Neutrophils Absolute Auto 8.2 K/mm3 (1.3-6.7); Neutrophils Percent Auto 83.4 % (45.5-73.1); Platelet Count Result 183 k/mm3 (150-375); Red Blood Count 3.02 M/mm3 (4.2-5.4); White Blood Count 9.8 K/mm3 (4.5-10.0)
[2024-07-19 06:37] LABS: Alanine Aminotransferase 26 U/L (6-35); Albumin Level 3.7 g/dL (3.5-5.1); Alkaline Phosphatase 63 U/L (38-126); Anion Gap 10 mmol/L (4-12); Aspartate Amino Transferase 30 U/L (14-36); Bilirubin,Total 0.9 mg/dL (0.2-1.3); Blood Urea Nitrogen 62 mg/dL (7-17); Calcium 8.4 mg/dL (8.4-10.2); Carbon Dioxide 27 mmol/L (22-30); Chloride 96 mmol/L (98-107); Estimated CRCL calculation 33 ml/min; Estimated Glomerular Filt Rate 34; Glucose 245 mg/dL (65-110); Sodium 133 mmol/L (137-145)
[2024-07-19] MEDS: APIXABAN 5 MG TABLET PO (09:08)
[2024-07-19] MEDS: hydrALAZINE HCL 50 MG TABLET PO ×2 (09:08→17:18)
[2024-07-19] MEDS: dilTIAZem HCL CD 180 MG CAP.24HR PO (09:08)
[2024-07-19] MEDS: FUROSEMIDE 40 MG TABLET PO (09:08)
[2024-07-19] MEDS: polyethylene glycoL 3350 17 GM POWD.PACK PO (09:08)
[2024-07-19] MEDS: dexAMETHasone SOD PHOS INJ 10 MG/ML 1 ML VIAL 6 MG IV PUSH (09:08)
[2024-07-19] MEDS: METOPROLOL TARTRATE 50 MG TAB PO (09:08)
[2024-07-19] MEDS: LOSARTAN POTASSIUM 100 MG TABLET PO (09:09)
[2024-07-19] MEDS: guaiFENesin 12 HR 600 MG TABCR PO (09:09)
[2024-07-19] MEDS: cefuroxime axetiL 250 MG TABLET PO (09:09)
[2024-07-19] MEDS: EMPAGLIFLOZIN 25 MG TABLET PO (09:09)
[2024-07-19] MEDS: BUDESONIDE RESPULE NEB 0.5 MG/2 ML AMP INHALATION ×2 (09:19→19:47)
--- NOTE | 2024-07-19 11:11 | P.PNIM_ITS ---
Progress Note: A&P Assessment and Plan (1) UTI (urinary tract infection): Code(s): N39.0 - Urinary tract infection, site not specified Status: Acute Assessment and Plan: * Admit to regular medical floor * Patient started on Rocephin, switched to Cefuroxime 250 mg PO q 12 on 07/15/24. * Urine culture showed E coli 07/17/24: * Continue abx. * Monitor renal function. 07/18/24: * Continue abx. * Renal function stable. 07/19/24: * Abx of Cefuroxime complete today. * No additional abx needed. * Renal function stable w/Cr/BUN at 1.46/62. (2) COVID: Code(s): U07.1 - COVID-19 Status: Acute Assessment and Plan: * Supportive care. * Guaifenesin 600 mg PO q12. * Duoneb q 6. * Add Decadron 6 mg ivp daily. * Incentive spirometer. 07/17/24: * Continue supportive care. * CXR in AM * Add budesonide nebulizer Q12 hrs for continued wheezing. * Wean oxygen as able to. 07/18/24: * Oxygen weaned to 1L. * CXR this AM showing no infection, but there is change of central congestion. * Lasix restarted today, anticipate improvement in fluid volume. 07/19/24: * Pt currently on room air. * Overall improvement in dyspnea/breathing. (3) Atrial fibrillation: Qualifiers: Atrial fibrillation type: longstanding persistent Qualified Code(s): I48.11 - Longstanding persistent atrial fibrillation Code(s): I48.91 - Unspecified atrial fibrillation Status: Acute Assessment and Plan: * Rate controlled anticoagulated * Continue diltiazem * Continue apixaban 07/19/24: * Continue all home meds of diltiazem and apixaban. (4) Morbid obesity with BMI of 50.0-59.9, adult: Code(s): E66.01 - Morbid (severe) obesity due to excess calories; Z68.43 - Body mass index [BMI] 50.0-59.9, adult Status: Acute Assessment and Plan: * 1800 calorie restricted diet 07/19/24: * Continue current diet. (5) Chronic kidney disease (CKD): Qualifiers: Chronic kidney disease stage: stage 3 (moderate) Chronic kidney disease stage 3 subtype: stage 3b (GFR 30-44) Qualified Code(s): N18.32 - Chronic kidney disease, stage 3b Code(s): N18.9 - Chronic kidney disease, unspecified Status: Acute Assessment and Plan: * Creatinine 2.40 on admission, currently 1.68. Improving. * Holding Losartan and Lasix. * Continue to monitor 07/17/24: * Stable renal function today at 1.7/55. * Continue to monitor and trend renal function. * Continue to hold Lasix and Losartan. 07/18/24: * Lasix restarted in the setting of having central vascular congestion on CXR this morning in the setting that her Lasix had been held. * Cr/BUN is stable at 1.59/59 07/19/24: * Stable and better than baseline even after restarting Lasix at 1.46/62 (6) RIMMA (acute kidney injury): Code(s): N17.9 - Acute kidney failure, unspecified Status: Acute Assessment and Plan: * Holding losartan * Daily intake and output * Renal ultrasound: FINDINGS: The right kidney measures 8.9 x 4.6 x 5.5 cm. The left kidney measures 10.6 x 5.7 x 4.8 cm. The kidneys demonstrate normal parenchymal echogenicity. There is a 14 mm cyst in left kidney. There is no hydronephrosis. The bladder is normal. IMPRESSION: 1. Mild atrophy of right kidney. No hydronephrosis. 07/17/24: * See #5 above 07/18/24: * Improving 07/19/24: * Stable and better than baseline even after restarting Lasix at 1.46/62 (7) Chronic acquired lymphedema: Code(s): I89.0 - Lymphedema, not elsewhere classified Status: Chronic Assessment and Plan: * Wound care consult * Caregiver bringing in home pumps. 07/17/24: * Wear home lymphedema pumps (8) JOSE on CPAP: Code(s): G47.33 - Obstructive sleep apnea (adult) (pediatric); Z99.89 - Dependence on other enabling machines and devices Status: Chronic Assessment and Plan: * CPAP at nighttime 07/17/24: * Continue home CPAP. (9) HTN (hypertension): Qualifiers: Hypertension type: essential hypertension Qualified Code(s): I10 - Essential (primary) hypertension Code(s): I10 - Essential (primary) hypertension Status: Acute Assessment and Plan: * Holding losartan 07/17/24: * BP borderline high with holding of Losartan, running 140s-150s/50s-100s. * If renal function is improved or at baseline tomorrow, consider restarting Losartan. * PRN Hydralazine ordered at this time as needed. 07/18/24: * BP still running higher than desired at 140s-150s/50s-80s. * Restarting Lasix 40 mg daily. * Suspect that Lasix will assist with lowering of BP. 07/19/24: * Restarting Losartan Plan Awaiting placement. Time Spent With Patient Time with patient: 15 - 25 minutes Subjective Date/time seen: 07/19/24 0915 Interval history: Pt sitting up in the chair today, appears comfortable without any distress or acute dyspnea. She is doing well on her resumed Lasix from yesterday and I am re-ordering her Losartan today for additional BP control. VSS, with her noted to be on room air. She has stable Labs as well. Pt has decided that she needs to be in a rehab environment before going back home and Care Coordination is currently assisting with those arrangements. Pt reports that she is feeling better today and she seems to be in good spirits. We will await Care coordinations efforts for SWB placement. Review of Systems Review of Systems: All systems reviewed & are unremarkable except as noted in HPI and below Exam Const: General: comfortable and no acute distress Other: Obese female sitting up in bed. HENMT: Mouth: Yes moist mucous membranes Eyes: General: appearance normal, both eyes and all related structures Neck: Neck: supple and no JVD Resp: Effort & Inspection: normal respiratory effort Auscultation: wheezes Cardio: Rate: regular rate Rhythm: regular rhythm Heart sounds: no gallops, no murmurs and no rubs GI: Auscultation: normal bowel sounds Skin: General skin exam: normal color, no rashes or lesions noted, erythema, No lesion and No rashes Lesions: no lesions noted Rashes: no rashes noted Wounds: no wounds Neuro: General: gait normal (aided with walker which is baseline for pt.) Speech: normal speech Motor exam (neuro): 5 motor strength present throughout and Normal motor muscle tone present throughout Sensory Exam: normal sensation Extrem: General: edema (Lymphedema present.) bilateral Psych: Mental Status: mental status grossly normal Affect: normal affect Objective Data Vital Signs Vital Signs: Vital Signs - 24 hr 07/18/24 12:00 07/18/24 13:25 07/18/24 13:25 Temperature Pulse Rate 50 L 60 Respiratory Rate 20 Blood Pressure Pulse Oximetry 91 Oxygen Delivery Nasal Cannula Oxygen Flow Rate 1 07/18/24 13:39 07/18/24 14:00 07/18/24 16:00 Temperature 97.6 F Pulse Rate 64 60 62 Respiratory Rate 20 14 Blood Pressure 139/57 L Pulse Oximetry 93 Oxygen Delivery Oxygen Flow Rate 07/18/24 20:00 07/18/24 20:24 07/18/24 20:29 Temperature Pulse Rate 61 69 Respiratory Rate 20 Blood Pressure Pulse Oximetry 91 Oxygen Delivery Nasal Cannula Oxygen Flow Rate 1 07/18/24 20:33 07/18/24 20:50 07/18/24 20:50 Temperature Pulse Rate 70 81 72 Respiratory Rate 20 20 Blood Pressure Pulse Oximetry 93 Oxygen Delivery Nasal Cannula Oxygen Flow Rate 1 07/18/24 21:32 07/18/24 23:00 07/19/24 00:04 Temperature 97.7 F Pulse Rate 72 53 L Respiratory Rate 20 Blood Pressure 138/69 Pulse Oximetry 93 94 Oxygen Delivery CPAP Oxygen Flow Rate 07/19/24 03:10 07/19/24 03:20 07/19/24 04:00 Temperature Pulse Rate 62 63 56 L Respiratory Rate 20 20 Blood Pressure Pulse Oximetry Oxygen Delivery Oxygen Flow Rate 07/19/24 06:39 07/19/24 08:00 07/19/24 09:05 Temperature 97.6 F Pulse Rate 61 60 Respiratory Rate 18 Blood Pressure 153/52 H Pulse Oximetry 92 92 Oxygen Delivery Nasal Cannula Oxygen Flow Rate 1 07/19/24 09:08 07/19/24 09:20 07/19/24 09:20 Temperature Pulse Rate 66 75 Respiratory Rate 20 Blood Pressure Pulse Oximetry 91 Oxygen Delivery Nasal Cannula Oxygen Flow Rate 1 Intake/Output Intake/Output: Intake & Output 07/16/24 07/17/24 07/18/24 07/19/24 23:59 23:59 23:59 23:59 Intake Total 1250 1830 2000 370 Output Total 1600 1000 600 650 Balance -155 395 8317 -280 Meds/Results Medications: Active Medications Generic Name Dose Route Start Last Admin Trade Name Freq PRN Reason Stop Dose Admin Acetaminophen 650 mg 07/12/24 20:29 07/18/24 21:10 Acetaminophen 325 Mg Tablet PO 650 mg Q4H PRN Administration Mild Pain (1-3) or Fever Hydrocodone Bitart/Acetaminophen 1 tab 07/12/24 20:29 07/17/24 09:20 Hydrocodone/Acetaminophen (*Crx) 5-325 Mg Tablet PO 1 tab Q4H PRN Administration Pain Rated 4-6 Albuterol/Ipratropium 3 ml 07/13/24 14:00 07/19/24 09:19 Ipratropium 0.5 Mg/Albuterol Sulfate 2.5 Mg Ampul.Neb 3 Ml INHALATION 3 ml Q6HRT JAYLENE Administration Apixaban 5 mg 07/13/24 09:00 07/19/24 09:08 Apixaban 5 Mg Tablet PO 5 mg Q12HR JAYLENE Administration Benzonatate 200 mg 07/13/24 10:52 07/16/24 16:31 Benzonatate 100 Mg Capsule PO 200 mg TID PRN Administration Cough Budesonide 0.5 mg 07/17/24 20:00 07/19/24 09:19 Budesonide Respule Neb 0.5 Mg/2 Ml Amp INHALATION 0.5 mg Q12HRT JAYLENE Administration Dexamethasone Sodium Phosphate 6 mg 07/14/24 11:40 07/19/24 09:08 Dexamethasone Sod Phos Inj 10 Mg/Ml 1 Ml Vial IV PUSH 07/23/24 09:01 6 mg DAILY JAYLENE Administration Diltiazem HCl 180 mg 07/13/24 09:00 07/19/24 09:08 Diltiazem Hcl Cd 180 Mg Cap.24hr PO 180 mg DAILY JAYLENE Administration Doxazosin Mesylate 8 mg 07/13/24 21:00 07/18/24 20:50 Doxazosin Mesylate 4 Mg Tablet PO 8 mg HS JAYLENE Administration Empagliflozin 25 mg 07/13/24 09:00 07/19/24 09:09 Empagliflozin 25 Mg Tablet PO 25 mg QAM JAYLENE Administration Fluticasone Propionate 1 spray 07/14/24 21:19 07/15/24 20:11 Fluticasone Propionate 0.05% Na Spr 16 Gm Btl (*Bkc) NASAL 1 spray Q4H PRN Administration Nasal Congestion Furosemide 40 mg 07/18/24 09:00 07/19/24 09:08 Furosemide 40 Mg Tablet PO 40 mg DAILY JAYLENE Administration Guaifenesin 600 mg 07/13/24 21:00 07/19/24 09:09 Guaifenesin 12 Hr 600 Mg Tabcr PO 07/20/24 20:59 600 mg Q12HR JAYLENE Administration Hydralazine HCl 50 mg 07/13/24 09:00 07/19/24 09:08 Hydralazine Hcl 50 Mg Tablet PO 50 mg BID JAYLENE Administration Hydralazine HCl 10 mg 07/17/24 10:51 Hydralazine 10 Mg Tablet PO QID PRN Hypertension Loratadine 10 mg 07/13/24 00:22 Loratadine 10 Mg Tablet PO DAILY PRN allergy symptoms Losartan Potassium 100 mg 07/19/24 09:00 07/19/24 09:09 Losartan Potassium 100 Mg Tablet PO 100 mg DAILY JAYLENE Administration Metoprolol Tartrate 50 mg 07/13/24 09:00 07/19/24 09:08 Metoprolol Tartrate 50 Mg Tab PO 50 mg Q12HR JAYLENE Administration Montelukast Sodium 10 mg 07/13/24 21:00 07/18/24 20:50 Montelukast Sodium 10 Mg Tablet PO 10 mg HS JAYLENE Administration Ondansetron HCl 4 mg 07/12/24 20:29 07/13/24 12:12 Ondansetron Inj 4 Mg/2 Ml Vial IV PUSH 4 mg Q4H PRN Administration Nausea Polyethylene Glycol 17 gm 07/16/24 10:25 07/19/24 09:08 Polyethylene Glycol 3350 17 Gm Powd.Pack PO 17 gm QAM PRN Administration Constipation Radiology Results: ITS Impressions Renal Ultrasound 07/13/24 11:42 IMPRESSION: 1. Mild atrophy of right kidney. No hydronephrosis. Chest X-Ray 07/18/24 06:46 Impression: Central pulmonary venous congestive change. Stable cardiomegaly. Labs Labs: Laboratory Results - last 24 hr 07/19/24 05:44 WBC 9.8 RBC 3.02 L Hgb 9.9 L Hct 30.1 L MCV 99.7 MCH 32.8 MCHC 32.9 RDW 13.0 Plt Count 183 MPV 10.1 Immature Gran % (Auto) 1.7 H Neut % (Auto) 83.4 H Lymph % (Auto) 7.6 L [place] % (Auto) 7.1 Eos % (Auto) 0.0 Baso % (Auto) 0.2 Lymph # (Auto) 0.75 L [place] # (Auto) 0.7 H Eos # (Auto) 0.0 Baso # (Auto) 0.0 Abs Immat Gran (auto) 0.17 H Absolute Neuts (auto) 8.2 H Absolute Nucleated RBC 0.000 Nucleated RBC % 0.0 Sodium 133 L Potassium 5.0 Chloride 96 L Carbon Dioxide 27 Anion Gap 10 BUN 62 H Creatinine 1.46 H Estim Creat Clear Calc 33 Estimated GFR 34 L Glucose 245 H Calcium 8.4 Total Bilirubin 0.9 AST 30 ALT 26 Alkaline Phosphatase 63 Total Protein 7.0 Albumin 3.7 Quality VTE Prophylaxis VTE prophylaxis: pharmacologic ordered
--- NOTE | 2024-07-19 13:06 | PCRCNOTE ---
Holding home o2 eval until closer to d/c, possibly going to swing bed in [place]
--- NOTE | 2024-07-19 14:05 | P.DS_ITS ---
DS: Admitting Diagnosis Discharge Date 07/19/24 Admitting Diagnosis UTI, HTN, Atrial Fibrillation, Morbid Obesity, CKD, JOSE, Lymphedema, RIMMA DS: Discharge Diagnosis Discharge Diagnosis (1) UTI (urinary tract infection): Code(s): N39.0 - Urinary tract infection, site not specified Status: Resolved Assessment and Plan: * Admit to regular medical floor * Patient started on Rocephin, switched to Cefuroxime 250 mg PO q 12 on 07/15/24. * Urine culture showed E coli 07/17/24: * Continue abx. * Monitor renal function. 07/18/24: * Continue abx. * Renal function stable. 07/19/24: * Abx of Cefuroxime complete today. * No additional abx needed. * Renal function stable w/Cr/BUN at 1.46/62. (2) COVID: Code(s): U07.1 - COVID-19 Status: Acute Assessment and Plan: * Supportive care. * Guaifenesin 600 mg PO q12. * Duoneb q 6. * Add Decadron 6 mg ivp daily. * Incentive spirometer. 07/17/24: * Continue supportive care. * CXR in AM * Add budesonide nebulizer Q12 hrs for continued wheezing. * Wean oxygen as able to. 07/18/24: * Oxygen weaned to 1L. * CXR this AM showing no infection, but there is change of central congestion. * Lasix restarted today, anticipate improvement in fluid volume. 07/19/24: * Pt currently on room air. * Overall improvement in dyspnea/breathing. (3) Atrial fibrillation: Qualifiers: Atrial fibrillation type: longstanding persistent Qualified Code(s): I48.11 - Longstanding persistent atrial fibrillation Code(s): I48.91 - Unspecified atrial fibrillation Status: Acute Assessment and Plan: * Rate controlled anticoagulated * Continue diltiazem * Continue apixaban 07/19/24: * Continue all home meds of diltiazem and apixaban. (4) Morbid obesity with BMI of 50.0-59.9, adult: Code(s): E66.01 - Morbid (severe) obesity due to excess calories; Z68.43 - Body mass index [BMI] 50.0-59.9, adult Status: Acute Assessment and Plan: * 1800 calorie restricted diet 07/19/24: * Continue current diet. (5) Chronic kidney disease (CKD): Qualifiers: Chronic kidney disease stage: stage 3 (moderate) Chronic kidney disease stage 3 subtype: stage 3b (GFR 30-44) Qualified Code(s): N18.32 - Chronic kidney disease, stage 3b Code(s): N18.9 - Chronic kidney disease, unspecified Status: Acute Assessment and Plan: * Creatinine 2.40 on admission, currently 1.68. Improving. * Holding Losartan and Lasix. * Continue to monitor 07/17/24: * Stable renal function today at 1.7/55. * Continue to monitor and trend renal function. * Continue to hold Lasix and Losartan. 07/18/24: * Lasix restarted in the setting of having central vascular congestion on CXR this morning in the setting that her Lasix had been held. * Cr/BUN is stable at 1.59/59 07/19/24: * Stable and better than baseline even after restarting Lasix at 1.46/62 (6) RIMMA (acute kidney injury): Code(s): N17.9 - Acute kidney failure, unspecified Status: Acute Assessment and Plan: * Holding losartan * Daily intake and output * Renal ultrasound: FINDINGS: The right kidney measures 8.9 x 4.6 x 5.5 cm. The left kidney measures 10.6 x 5.7 x 4.8 cm. The kidneys demonstrate normal parenchymal echogenicity. There is a 14 mm cyst in left kidney. There is no hydronephrosis. The bladder is normal. IMPRESSION: 1. Mild atrophy of right kidney. No hydronephrosis. 07/17/24: * See #5 above 07/18/24: * Improving 07/19/24: * Stable and better than baseline even after restarting Lasix at 1.46/62 (7) Chronic acquired lymphedema: Code(s): I89.0 - Lymphedema, not elsewhere classified Status: Chronic Assessment and Plan: * Wound care consult * Caregiver bringing in home pumps. 07/17/24: * Wear home lymphedema pumps (8) JOSE on CPAP: Code(s): G47.33 - Obstructive sleep apnea (adult) (pediatric); Z99.89 - Dependence on other enabling machines and devices Status: Chronic Assessment and Plan: * CPAP at nighttime 07/17/24: * Continue home CPAP. (9) HTN (hypertension): Qualifiers: Hypertension type: essential hypertension Qualified Code(s): I10 - Essential (primary) hypertension Code(s): I10 - Essential (primary) hypertension Status: Acute Assessment and Plan: * Holding losartan 07/17/24: * BP borderline high with holding of Losartan, running 140s-150s/50s-100s. * If renal function is improved or at baseline tomorrow, consider restarting Losartan. * PRN Hydralazine ordered at this time as needed. 07/18/24: * BP still running higher than desired at 140s-150s/50s-80s. * Restarting Lasix 40 mg daily. * Suspect that Lasix will assist with lowering of BP. 07/19/24: * Restarting Losartan Plan Accepted at [facility]. DS: Summary Hospital Course Reason for hospitalization: Supportive care in setting of acute covid and abx treatment of UTI. Hospital Course: This very pleasant 79 year old female pt with PMH of chronic Lymphedema, Obesity, Atrial fibrillation on oral anticoagulation and rate control, HTN and CKD presented tot he ER on 07/12/24 with dyspnea and was subsequently admitted to the hospital for supportive respiratory care after it was found that she had COVID. Pt was also found to have an acute UTI and RIMMA. She was admitted with appropriate treatment and monitored. Throughout her hospitalization, she was able to be weaned from supplemental oxygen to RA, and her RIMMA has resolved to her baseline with gentle hydration. Discharging Cr/BUN are 1.46/62, which is chronic for pt's degree of CKD. Her initially held Lasix and Losartan have been restarted and without consequence to her renal function. She has completed a full course of Cefuroxime abx for her UTI that grew out E.coli. Her a-fib has been stable and she remains on Eliquis and Diltiazem. She has Lymphedema pumps that she wears chronically and is normally very compliant with it however within the limitations of the room that she is in currently, it has been difficult for her to wear them. She is compliant with her CPAP therapy. She is stable for discharge at this time to [facility] for continued therapy and treatment. Status at Discharge Cognitive/behavioral status at discharge: At baseline Functional status at discharge: wheelchair bound Overall status at discharge: patient is progressing back to baseline Time Spent with Patient Time attestation: Total time spent providing and/or coordinating discharge services: Time spent: Greater than 30 minutes Specific discharge activities: Discharge instructions, medications Exam Const: General: comfortable and no acute distress Other: Obese female sitting up in bed. HENMT: Mouth: Yes moist mucous membranes Eyes: General: appearance normal, both eyes and all related structures Neck: Neck: supple and no JVD Resp: Effort & Inspection: normal respiratory effort Auscultation: wheezes Cardio: Rate: regular rate Rhythm: regular rhythm Heart sounds: no gallops, no murmurs and no rubs GI: Auscultation: normal bowel sounds Skin: General skin exam: normal color, no rashes or lesions noted, erythema, No lesion and No rashes Lesions: no lesions noted Rashes: no rashes noted Wounds: no wounds Neuro: General: gait normal (aided with walker which is baseline for pt.) Speech: normal speech Motor exam (neuro): 5/5 motor strength present throughout and Normal motor muscle tone present throughout Sensory Exam: normal sensation Extrem: General: edema (Lymphedema present.) bilateral Psych: Mental Status: mental status grossly normal Affect: normal affect DS: Data Data Completed and Pending Completed studies during hospitalization: ITS Impressions Chest X-Ray 07/12/24 18:09 IMPRESSION: No focal infiltrate or effusion. Renal Ultrasound 07/13/24 11:42 IMPRESSION: 1. Mild atrophy of right kidney. No hydronephrosis. Chest X-Ray 07/18/24 06:46 Impression: Central pulmonary venous congestive change. Stable cardiomegaly. Labs on day of discharge: Labs from last 24 hours 07/19/24 05:44 WBC 9.8 RBC 3.02 L Hgb 9.9 L Hct 30.1 L MCV 99.7 MCH 32.8 MCHC 32.9 RDW 13.0 Plt Count 183 MPV 10.1 Immature Gran % (Auto) 1.7 H Neut % (Auto) 83.4 H Lymph % (Auto) 7.6 L Morrow % (Auto) 7.1 Eos % (Auto) 0.0 Baso % (Auto) 0.2 Lymph # (Auto) 0.75 L Morrow # (Auto) 0.7 H Eos # (Auto) 0.0 Baso # (Auto) 0.0 Abs Immat Gran (auto) 0.17 H Absolute Neuts (auto) 8.2 H Absolute Nucleated RBC 0.000 Nucleated RBC % 0.0 Sodium 133 L Potassium 5.0 Chloride 96 L Carbon Dioxide 27 Anion Gap 10 BUN 62 H Creatinine 1.46 H Estim Creat Clear Calc 33 Estimated GFR 34 L Glucose 245 H Calcium 8.4 Total Bilirubin 0.9 AST 30 ALT 26 Alkaline Phosphatase 63 Total Protein 7.0 Albumin 3.7 Discharge Plan Discharge Attending physician on discharge: Genie Ruvalcaba Discharging Clinician: Genie Ruvalcaba Anticipated Discharge Date/Time: 07/19/24 14:41 Patient Disposition: Hospital Swing Bed Activity: as tolerated Diet: low fat Discharge Instructions: Follow all directions. PT as ordered, OT as ordered Discharge to [facility] Patient Instructions: Apixaban (By mouth), Blood Thinners (GEN) Patient Language: Chilean Stand Alone Forms: General Discharge Information Follow-up/Referrals: Sandra Gomez MD [Primary Care Provider] - Call for Appointment Discharge Medications: Continued pyridoxine (vitamin B6) 100 mg tablet 100 mg PO DAILY mecobalamin (vitamin B12) 1,000 mcg tablet,chewable 1,000 mcg PO DAILY ascorbate calcium (vitamin C) 500 mg tablet 500 mg PO DAILY Algal Linneus-3 DHA 200 mg capsule 200 mg PO DAILY cetirizine [Zyrtec] 10 mg tablet 10 mg PO DAILY PRN (Reason: allergy symptoms) montelukast 10 mg tablet 10 mg PO HS (DME) OneTouch Ultra Test Strip See Rx Instructions .Route Qty: 100 11RF Rx Instructions: As directed TID. Ultra blue test strips furosemide 40 mg tablet 40 mg PO DAILY Qty: 90 1RF metoprolol tartrate 100 mg tablet 50 mg PO BID Qty: 90 1RF Eliquis 5 mg tablet 5 mg PO Q12HR Qty: 60 5RF hydralazine 50 mg tablet 50 mg PO BID Qty: 180 3RF losartan 100 mg tablet 100 mg PO DAILY Qty: 90 1RF doxazosin 8 mg tablet 8 mg PO HS Qty: 90 1RF diltiazem HCl [Tiadylt ER] 180 mg capsule,extended release 24 hr 180 mg PO DAILY Qty: 90 1RF empagliflozin 25 mg tablet 25 mg PO QAM Qty: 90 3RF Discontinued metoprolol tartrate 50 mg tablet 50 mg PO BID Date of admission: 07/13/24 11:45 Primary Care Provider: Sandra Gomez Admitting Provider: Jesus Bernal V. Attending physician on admission: Genie Ruvalcaba Condition: Stable Quality VTE Prophylaxis VTE prophylaxis: pharmacologic ordered Hospitalist MIPS Heart Failure (Exclusion) Patient has history of Heart Transplant or Left Ventricular Assistive Device?: No IF YES, STOP HERE Heart Failure (Qualifier) Patient has current or prior documentation of LVEF less than or equal to 40%, or mod/servere depressed LVSF?: No IF NO, STOP HERE
[2024-07-19] MEDS: INFLUENZA VACCINE HIGH DOSE (>64) 180 MCG/0.5 ML SYRINGE IM (18:10)
== END 2024-07-19 20:28 | disposition swing bed (61) | DRG 178 ==
LOC: ANHED 19:14 → ANH2MED 20:45
PROVIDERS: Nurse Practitioner Family; Physician Assistant; Admitting Provider Internal Medicine; Emergency Provider Emergency Medicine; PCP Family Medicine; Visit Provider Nurse Practitioner Adult Health
DX: U07.1 COVID-19 (principal); I48.11 Longstanding persistent atrial fibrillation; N39.0 Urinary tract infection, site not specified; Z68.43 Body mass index [BMI] 50.0-59.9, adult; B96.20 Unspecified Escherichia coli [E. coli] as the cause of diseases classified elsewhere; E66.01 Morbid (severe) obesity due to excess calories; Z79.01 Long term (current) use of anticoagulants; Z23 Encounter for immunization; Z79.84 Long term (current) use of oral hypoglycemic drugs; I12.9 Hypertensive chronic kidney disease with stage 1 through stage 4 chronic kidney disease, or unspecified chronic kidney disease; H26.9 Unspecified cataract; H40.9 Unspecified glaucoma; E78.5 Hyperlipidemia, unspecified; G47.33 Obstructive sleep apnea (adult) (pediatric); Z99.89 Dependence on other enabling machines and devices; I89.0 Lymphedema, not elsewhere classified; N18.32 Chronic kidney disease, stage 3b
CPT/HCPCS: 36415; 71045; 76775; 80053; 81001; 83735; 85025; 87040; 87086; 87186; 87637; 90471; 90662; 93005; 94640; 96365; 96375; 97110; 97116; 97162; 97166; 97530; 97535; 99285; A9270; G0008; G0378; J0696; J1100; J2405; J7030

== ENCOUNTER 2024-07-19 21:20 | Inpatient (IN) | payer MEDICARE, BC, SELFPAY ==
--- OUTSIDE RECORDS SUMMARY | 2024-07-19 21:36 | XMS_ITS | Clinical Summary ---
Author Organization [facility] [address] Address [address] [place] [address] Care Team Providers Care Bank Vault Clerk Name Role Phone Sandra Gomez MD Primary Care Provider [phone] Allergies Active Allergy Reactions Criticality Noted Date [...] mg total) by mouth daily Active cranberry srlg-R-bixsieei coag 250-30-15 mg tablet Take by mouth [...] Problem Noted Date Diagnosed Date Atrial fibrillation ([facility]) 02/22/2023 Hypertension 08/30/2012 Diabetes mellitus 08/30/2012 Glaucoma 08/30/2012 Arthritis 08/01/2012 Overview (09/15/2016): Arthritis 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 Overview (09/17/2016): Bilateral leg weakness Type 2 diabetes mellitus 08/01/2012 Overview (09/15/2016): DM type 2 (diabetes mellitus, type 2) Controlled type 2 diabetes m ellitus without complication ([facility]) 07/03/2012 Overview (09/15/2016): DM w/o complication type [...] on file Legal Sex Female 2:44 AM FILER AND SANDER Gender Identity Not on file Sexual Orientation [...] LIPID PANEL Routine 07/11/2012 11 :47 AM FILER AND SANDER from Last 3 Months or Most Recently Relevant to Health Maintenance Results * (ABNORMAL) Plasma lipid panel (07/11/2012 11:47 AM FILER AND SANDER) Cholesterol 158 140 - 199 mg/dl HISTORICAL RESULTS Triglycerides 95 20 - 150 mg/dl HISTORICAL RESULTS Comment:As of May 21 012, triglyceride values may be falsely elevated up to 10% due to changes in soaker helper reagents. Due to the triglyceride elevation, the calculated LDL may be falsely decreased up to 2%. HDL 31(L) 40 - 60 mg/dl HISTORICAL RESULTS LDL 108(H) 65 - 100 mg/dl HISTORICAL RESULTS Comment: Desirable Borderline High CHOL < 200 200 - 239 >= 240 mg/dL TRIG < 150 150 - 199 >= 200 mg/dL HDL > 60 40 - 60 <= 40 mg/dL LDL < 100 130 - 159 >= 160 mg/dL Risk Assessment interpretation based on the December 2000 NCEP ATPIII guideline. Chol/HDL ratio 5.1(H) 0.0 - 4.9 HISTO RICAL RESULTS Comment:Effective Monday, A pril 2011, [facility] Laboratory will begin reporting the Total Cholesterol/HDL Ratio Plasma 07/11/2012 11:4 7 AM FILER AND SANDER us Patrick Morley MD LAB BLOOD ORDERABLES Fin al Result HISTORICAL RESULTS from Last 3 Months or Most Recently Relevant to Health Maintenance Insurance MEDICARE MEDICARE [facility] Member Subscriber Plan / Payer (Ef fective 1989-Present) Name:Liz Corinne E Relation to Subscriber:Self Name:Corinne Hill Mani Payer ID:[id number] (NAIC) Group ID:[id number] Type:[facility] Address: [address] [place] [id number] Care Teams Bank Vault Clerk Relationship Specialty Start Date End Date Sandra Gomez MD PCP - General Family Medicine 11/22/23
--- OUTSIDE RECORDS SUMMARY | 2024-07-19 21:36 | XMS_ITS | Clinical Summary ---
Author Organization [facility] Address [address] [place] [address] Care Team Providers Care Metallic Yarn Slitting Machine Operator Name Role Phone Unavailable Primary [...] 2 Active fluticasone propionate (FLONASE) 50 mcg/spray [place], Suspension nasal inhaler SPRAY 1 SPRAY INTO EACH NOSTRIL EVERY 12 HOURS 2 Active PureWRXuch Ultra Test Strip USE TO CHECK BLOOD [...] 66 02/02/2022 10:36 AM CDT Temperature 36.7 C (98 F) 02/02/2022 10:36 AM CDT Respiratory Rate - [...] series) 2019 INFLUENZA VACCINE (#1) 2024 [place] [address] MEDICARE PART A AND B [facility]
--- OUTSIDE RECORDS SUMMARY | 2024-07-19 21:36 | XMS_ITS | Continuity of Care Document ---
Author Organization [facility] Address [address] [place] [address] Phone Care Team Providers Care Food Photographer Name Role Phone Waqas Aviles Unavailable Unavailable [...] Copied on Encounter Office/outpat ient Visit, [facility], [address], [place], [place], [id number], [place] tel:[phone] [facility] No Information Oct-1 1-201 0 Traci Alan. [address] , [address], [place], [place], [facility], [place]. tel:[phone] [facility], [address] [place] [address] [address], [place], [place], [id number], tel:[phone] SEC [facility] No Information - 0 Traci Alan. [address] [place], [place] [address]ate Center , [address], [place], [facility], [place]. tel:[phone] Referring Provider: Waqas Stewart, [address] [place], [place] [address]ate Center [address], [place], [place], [facility]. tel:[phone] [facility], [address] [place] [address] [address], [place], [place], [id number], [place] tel:[phone] [facility] [place] No Information 0 Traci Alan. [address] [place] [address] , [address], [place], [facility], [place]. tel:[phone] Referring Provider: Waqas Stewart, [address] [place], [place] [address]ate [address], [place], [facility]. tel:[phone] [facility], [address] [place] [address] [address], [place], [place], [id number], [place] tel:[phone] [facility] No Information 0 Krishnasamy Agusto. [address] [place] [address] [address], [place], [place], [facility], [place]. tel:[phone] Office/outpat ient Visit, [facility], [address] [place] [address] [address], [place], [place], [id number], [place] tel:[phone] [facility] [place] No Information 0 Krishnasamy Agusto. [address] [place] [address] [address], [place], [place], [facility], [place]. tel:[phone] [facility], [address] [place] [address] [address], [place], [place], [id number], [place] tel:[phone] [facility] [place] No Information Sep-1 8-200 9 Krishnasamy Agusto. [address] [facility] [address], [place], [facility], [place]. tel:[phone] Referring Provider: Agusto redd, [address] [place], [place] [address]ate Center [facility] 102, [place], [facility]. tel:[phone] Office/outpat ient Visit, [facility], [address] [place] [address] [address], [place], [place], [id number], [place] tel:[phone] SEC [facility] No Information Elder-2 9-200 9 Krishnasamy Agusto. [address] [place], [place] [address]ate [address], [facility], [place]. tel:[phone] [facility], [address] [place] [address] [address], [place], [place], [id number], [place] tel:[phone] SEC [facility] No Information Sep-1 5-200 8 Krishnasamy Agutso. [address] [place], [place] [address]ate [facility] [address], [place], [facility], [place]. tel:[phone] Referring Provider: Agusto redd, [address] [place], [place] [address]ate [facility] 102, [place], [place], [facility]. tel:[phone] Office/outpat ient Visit, [facility], [address] [place] [address] [address], [place], [place], [id number], [place] tel:[phone] SEC [facility] No Information October- 2-200 8 Krishnasamy Agusto. [facility] [address], [place], [facility], [place]. tel:[phone] Office/outpat ient Visit, [facility], [address] [place] [address] [address], [place], [place], [id number], [place] tel:[phone] SEC [facility] No Information 1-200 8 Krishnasamy Agusto. [address], [place], [facility], [place]. tel:[phone] [facility], [address], [place], [place], [id number], [place] tel:[phone] [facility] [place] No Information 0-200 8 Krishnasamy Agusto. [address], [place], [facility], [place]. tel:[phone] [facility], [address] [place] [address] [address], [place], [place], [id number], [place] tel:[phone] [facility] [place] No Information 4-200 8 Traci Alan. [address] [place], [place] [address]ate Center , [address], [place], [facility], [place]. tel:[phone] [facility], [address], [place], [place], [id number], [place] tel:[phone] [facility] No Information 0-200 7 Traci Alan. [facility] , [address], [place], [facility], [place]. tel:[phone] Referring Provider: Kavon [address], [place], [facility]. tel:[phone] Office/outpat ient Visit, [facility], [address], [place], [place], [id number], [place] tel:[phone] [facility] [place] No Information Sep-2 3-200 7 Traci Alan. [facility] , [address], [place], [facility], [place]. tel:[phone] Referring Provider: Kavon [address], [place], [address]. tel:[phone] Family History Family Member Type Diagnosis Age At Onset No Information Payers Payer name Insurance type Covered green party ID Authoriza tion(s) Medicare [facility] [id number] [facility] [id number] Social History Type Description Quantity Date Captured [...]
--- OUTSIDE RECORDS SUMMARY | 2024-07-19 21:36 | XMS_ITS | Referral Summary ---
Author Organization [facility] [address] Address [address] [place] [address] Care Team Providers Care Engine Service Repairer Name Role Phone Sandra Gomez MD Primary Care Provider [phone] Allergies Active Allergy Reactions Criticality Noted Date [...] mg total) by mouth daily Active cranberry rapj-D-oucokzez coag 250-30-15 mg tablet Take by mouth [...] Problem Noted Date Diagnosed Date Atrial fibrillation ([facility]) 02/22/2023 Hypertension 08/30/2012 Diabetes mellitus 08/30/2012 Glaucoma 08/30/2012 Arthritis 08/01/2012 Overview (09/15/2016): Arthritis 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 Overview (09/17/2016): Bilateral leg weakness Type 2 diabetes mellitus 08/01/2012 Overview (09/15/2016): DM type 2 (diabetes mellitus, type 2) Controlled type 2 diabetes m ellitus without complication ([facility]) 07/03/2012 Overview (09/15/2016): DM w/o complication type [...] on file Legal Sex Female 2:44 AM BIOMETRIC FINGERPRINTING TECHNICIAN Gender Identity Not on file Sexual Orientation [...] LIPID PANEL Routine 07/11/2012 11 :47 AM BIOMETRIC FINGERPRINTING TECHNICIAN from Last 3 Months or Most Recently Relevant to Health Maintenance Results * (ABNORMAL) Plasma lipid panel (07/11/2012 11:47 AM BIOMETRIC FINGERPRINTING TECHNICIAN) Cholesterol 158 140 - 199 mg/dl HISTORICAL RESULTS Triglycerides 95 20 - 150 mg/dl HISTORICAL RESULTS Comment:As of May 21, triglyceride values may be falsely elevated up to 10% due to changes in resident intern reagents. Due to the triglyceride elevation, the [...] RICAL RESULTS Comment:Effective Monday, A pril 2011, [facility] Laboratory will begin reporting the Total Cholesterol/HDL Ratio Plasma 07/11/2012 11:4 7 AM BIOMETRIC FINGERPRINTING TECHNICIAN us Patrick Morley MD LAB BLOOD ORDERABLES Fin al Result HISTORICAL RESULTS from Last 3 Months or Most Recently Relevant to Health Maintenance Insurance MEDICARE MEDICARE [facility] Care Teams Engine Service Repairer Relationship Specialty Start Date End Date Sandra Gomez MD PCP - General Family Medicine 11/22/23
--- OUTSIDE RECORDS SUMMARY | 2024-07-19 21:36 | XMS_ITS | Clinical Summary ---
Author Organization [facility] Address [address] [place] [phone] Phone Care Team Providers Care Social Work Job Titles Name Role Phone Sandra Gomez MD Primary [...] 72 12/27/2021 1:43 PM CDT Temperature 37.1 C (98.7 F) 12/27/2021 1:43 PM CDT Respiratory Rate - - Oxygen Saturation - [...] 2009 Influenza Vaccine (#1) 2024 Care Teams Social Work Job Titles Relationship Specialty Start Date End Date Sandra Gomez MD [address] [place] [address] PCP - General Internal Medicine 02/17/21
[2024-07-19 21:56] VITALS: BMI 52.8
[2024-07-19 22:00] VITALS: BP 129/59; PULSE 71; RESP 18; TEMP 36.5; O2SAT 91
[2024-07-19 22:30] VITALS: PULSE 71
[2024-07-19] MEDS: hydrALAZINE HCL 25 MG TABLET 50 MG PO (22:30)
[2024-07-19] MEDS: MONTELUKAST SODIUM 10 MG TABLET PO (22:30)
[2024-07-19] MEDS: APIXABAN 2.5 MG TABLET 5 MG PO (22:30)
[2024-07-19] MEDS: METOPROLOL TARTRATE 50 MG TAB PO (22:30)
--- NOTE | 2024-07-19 22:46 | ADMGEN ---
This patient, Corinne Hill, was admitted to 2nd Floor Room 202-1. Patient/family oriented to hospital policies and general routines including ID bracelet, bed and alarms, visiting hours, pain management, procedures, bathroom and other care routines, personal items, smoking policy, room service/diet, and visiting hours. Information on how to activate the Rapid Response Team has been discussed. Patient/Family are encouraged to report perceived risks to care and to ask questions if they do not understand what they are told or what they should do.
[2024-07-20] VITALS (7 sets, daily range): BP systolic 129–147; BP diastolic 50–64; PULSE 57–100; RESP 16–18; TEMP 36.5–36.9; O2SAT 91–97
[2024-07-20] MEDS: DOXAZOSIN MESYLATE 2 MG TABLET 8 MG PO ×2 (00:06→20:51)
[2024-07-20] MEDS: traZODone HCL 50 MG TABLET PO ×2 (00:08→20:45)
[2024-07-20] MEDS: EMPAGLIFLOZIN 25 MG TABLET PO (09:25)
[2024-07-20] MEDS: ASCORBIC ACID 500 MG TABLET PO (09:25)
[2024-07-20] MEDS: METOPROLOL TARTRATE 50 MG TAB PO ×2 (09:25→20:54)
[2024-07-20] MEDS: APIXABAN 2.5 MG TABLET 5 MG PO ×2 (09:25→20:45)
[2024-07-20] MEDS: hydrALAZINE HCL 25 MG TABLET 50 MG PO ×2 (09:25→20:45)
[2024-07-20] MEDS: CYANOCOBALAMIN 1,000 MCG TABLET 1000 MCG PO (09:25)
[2024-07-20] MEDS: dilTIAZem HCL CD 180 MG CAP.24HR PO (09:26)
[2024-07-20] MEDS: LOSARTAN POTASSIUM 50 MG TABLET 100 MG PO (09:26)
[2024-07-20] MEDS: FUROSEMIDE 40 MG TABLET PO (09:26)
--- NOTE | 2024-07-20 13:53 | P.HP_ITS ---
H&P: HPI History of Present Illness Date/Time: 07/20/24 13:53 Chief Complaint: weakness physical deconditioning Narrative: This is 79-year-old female with a significant past medical history of lymphedema, obesity, AFib on oral anticoagulation, JOSE Wear CPAP at night, diabetes, congestive heart failure, hypertension, chronic kidney disease who presented to [facility] for additional rehab after a hospitalization with COVID, UTI, acute kidney injury. patient was placed on cefuroxime 250 mg p.o. b.i.d. for her UTI, given Decadron, and supportive care for the COVID-19. urine culture showing E coli. she denies any fever, chills, nausea, vomiting, diarrhea, abdominal pain, chest pain, shortness a breath. She is currently on 2 L nasal cannula, Vital signs stable, she is afebrile. Review of Systems Review of Systems: All systems reviewed & are unremarkable except as noted in HPI and below PMFSH Past Medical History Medical History Escherichia coli urinary tract infection UTI (urinary tract infection) JOSE on CPAP Poor personal hygiene Impacted cerumen of both ears Atrial fibrillation Diabetes Arthritis Post-menopausal CHF (congestive heart failure) HTN (hypertension) Hyperlipidemia Heart murmur Seasonal allergies Glaucoma Cataracts, bilateral Surgical History Surgical History Hx of cervical spine surgery History of dilation and curettage Family History Family History Father Diabetes mellitus Mother Hypertension Social History Social History Social History: The patient is single and has no children. 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 Her niece Aristeo whitt is the durable [employer] school professional for healthcare. The patient is lifelong nonsmoker. She does not use any alcohol marijuana or illicit drugs. Full code Smoking status: Never smoker Second hand tobacco smoke exposure: No Alcohol intake: never Substance use: never Substance use type: does not use Do You Feel Safe in your Home?: Yes Lack of Transportation: No Lack of Food: Never True Current Housing: I Have Housing Concerned About Future Housing: No Difficulty Paying Gas/Electric Bills: No Difficulty Paying for Meds: No Currently Unemployed: No Education: Associate Degree Difficulty w/ Childcare or Family Care: No Living arrangements: alone Additional living arrangements comments: [facility] COM[facility] 3 MORNINGS PER WEEK. Occupation/Education: retired Gender identity (if verbalized by the patient): Female Spiritual care concerns: No Agree to blood products: Yes Meds Home Medications and Allergies Home Medications ?Medication ?Instructions ?Recorded ?Confirmed ?Type cetirizine 10 mg tablet (Zyrtec) 10 mg PO DAILY PRN allergy symptoms 11/08/22 07/19/24 History ascorbate calcium (vitamin C) 500 500 mg PO DAILY 08/08/23 07/19/24 History mg tablet docosahexaenoic acid 200 mg 200 mg PO DAILY 08/08/23 07/19/24 History capsule (Algal [place]-3 DHA) mecobalamin (vitamin B12) 1,000 1,000 mcg PO DAILY 08/08/23 07/19/24 History mcg chewable tablet pyridoxine (vitamin B6) 100 mg 100 mg PO DAILY 08/08/23 07/19/24 History tablet blood sugar diagnostic (OneTouch #100 ea 10/16/23 07/19/24 Rx Ultra Test strips) furosemide 40 mg tablet 40 mg PO DAILY #90 tabs 01/16/24 07/19/24 Rx metoprolol tartrate 100 mg tablet 50 mg (1/2 x 100 mg) PO BID #90 01/16/24 07/19/24 Rx tabs apixaban 5 mg tablet (Eliquis) 5 mg PO Q12HR #60 tabs 01/29/24 07/19/24 Rx hydralazine 50 mg tablet 50 mg PO BID #180 tabs 03/31/24 07/19/24 Rx doxazosin 8 mg tablet 8 mg PO HS #90 tabs 04/18/24 07/19/24 Rx losartan 100 mg tablet 100 mg PO DAILY #90 tabs 04/18/24 07/19/24 Rx diltiazem HCl 180 mg capsule,24 180 mg PO DAILY #90 caps 05/29/24 07/19/24 Rx hr,extended release (Tiadylt ER) empagliflozin 25 mg tablet 25 mg PO QAM #90 tabs 06/18/24 07/19/24 Rx montelukast 10 mg tablet 10 mg PO HS 07/12/24 07/19/24 History Allergies Allergy/AdvReac Type Severity Reaction Status Date / Time diclofenac Allergy Unknown Unknown Verified 03/05/24 10:18 griseofulvin Allergy Unknown Rash Verified 03/05/24 10:18 Penicillins Allergy Unknown Unknown Verified 07/15/24 07:59 Mrthswe-LJM-YdF Reductase Allergy Unknown Unknown Verified 03/05/24 10:18 Inhibitor (Ktzuzmk-Zet-Cic Reductase Inhibitor) Sulfa (Sulfonamide Allergy Unknown Unknown Verified 03/05/24 10:18 Antibiotics) Vital Signs Vital Signs - 24 hr 07/19/24 22:00 07/19/24 22:00 07/19/24 22:30 Temperature 97.7 F Pulse Rate 71 71 71 Respiratory Rate 18 18 Blood Pressure 129/59 L Pulse Oximetry 91 91 Oxygen Delivery Nasal Cannula Nasal Cannula Oxygen Flow Rate 1 1 07/20/24 00:00 07/20/24 07:50 07/20/24 08:25 Temperature 97.7 F 98.1 F Pulse Rate 71 57 L 57 L Respiratory Rate 18 16 16 Blood Pressure 129/59 L 147/52 H Pulse Oximetry 91 96 96 Oxygen Delivery Nasal Cannula Room Air Room Air Oxygen Flow Rate 1 07/20/24 09:25 Temperature Pulse Rate 57 L Respiratory Rate Blood Pressure Pulse Oximetry Oxygen Delivery Oxygen Flow Rate Exam Narrative: General: In no acute distress, well nourished Head: atraumatic, no encephalopathy Eyes: PERRLA, sclera clear ENT: moist mucous membranes, nasal passages clear Neck: supple, no JVD, no adenopathy, trachea midline Cardiac: Normal S1 and S2. No murmur, gallops or friction rubs, peripheral pulses intact. Respiratory: Lungs diminished, no adventitious lung sounds, currently on 2 L Gastrointestinal: soft, non-distended, non-tender, normoactive bowel sounds. : voiding without difficulty. Extremities: Bilateral lower extremity lymphedema Skin: clean, dry, intact. No wounds or lesions. Neuro: Alert and oriented x4, cranial nerves intact, no neuro deficits. Psych: normal mood, normal affect, interactive Assessment and Plan Assessment and plan (1) Weakness: Code(s): R53.1 - Weakness Status: Acute Assessment and Plan: * PT and OT ordered (2) HTN (hypertension): Qualifiers: Hypertension type: essential hypertension Qualified Code(s): I10 - Essential (primary) hypertension Code(s): I10 - Essential (primary) hypertension Status: Acute Assessment and Plan: * blood pressure ranging 129/59 to 147/52 * continue metoprolol, losartan (3) Congestive heart failure: Qualifiers: Heart failure chronicity: unspecified Code(s): I50.9 - Heart failure, unspecified Status: Acute Assessment and Plan: * continue metoprolol, losartan, Lasix, Jardiance (4) Atrial fibrillation: Qualifiers: Atrial fibrillation type: longstanding persistent Qualified Code(s): I48.11 - Longstanding persistent atrial fibrillation Code(s): I48.91 - Unspecified atrial fibrillation Status: Acute Assessment and Plan: * continue Cardizem and Eliquis (5) Type 2 diabetes mellitus with obesity: Code(s): E11.69 - Type 2 diabetes mellitus with other specified complication; E66.9 - Obesity, unspecified Status: Chronic Assessment and Plan: * Blood sugars ranging 187-245 * Hgb A1C 6.2 * Accu checks AC/HS * high-dose SSI ordered * hypoglycemic protocol in place * Diabetic diet ordered (6) Chronic acquired lymphedema: Code(s): I89.0 - Lymphedema, not elsewhere classified Status: Chronic Assessment and Plan: * bilateral lower extremity * wear lymphedema boots for 1 hour per day (7) COVID: Code(s): U07.1 - COVID-19 Status: Acute Assessment and Plan: * continue to wean O2 for sat greater than 92% * supportive care (8) UTI (urinary tract infection): Code(s): N39.0 - Urinary tract infection, site not specified Status: Resolved Assessment and Plan: * urine culture showing E coli * finish full course of cefuroxime while inpatient at [facility] * blood cultures were negative Quality VTE Prophylaxis VTE prophylaxis: pharmacologic ordered Hospitalist MIPS Advance Care Plan I have confirmed that the patient's Advanced Care Plan is present, code status is documented, or surrogate decision maker is listed in patient medical record.: Yes Medication Reconciliation I have utilized all available resources to obtain, update and review the patients current medications (includes all prescriptions, OTC, herbals, cannabis, and nutritional supplements).: Yes
--- NOTE | 2024-07-20 18:40 | PC.NURSE ---
lymphedema boots applied.
[2024-07-20] MEDS: MONTELUKAST SODIUM 10 MG TABLET PO (20:45)
[2024-07-20 21:22] LABS: Glucose Point of Care 206 mg/dl (65-105)
--- NOTE | 2024-07-20 22:23 | PC.NURSE ---
Patient missing power chord for C-PAP, states it was left at [facility]. Call placed to [facility], 2nd floor, spoke with Jarrell, states they will ask housekeeping and return call.
[2024-07-21 05:30] VITALS: O2SAT 95
[2024-07-21 08:00] VITALS: BP 154/63; PULSE 42; RESP 16; TEMP 36.6; O2SAT 97
[2024-07-21] MEDS: hydrALAZINE HCL 25 MG TABLET 50 MG PO ×2 (08:55→20:24)
[2024-07-21] MEDS: APIXABAN 2.5 MG TABLET 5 MG PO ×2 (08:55→20:23)
[2024-07-21] MEDS: CYANOCOBALAMIN 1,000 MCG TABLET 1000 MCG PO (08:56)
[2024-07-21] MEDS: LOSARTAN POTASSIUM 50 MG TABLET 100 MG PO (08:56)
[2024-07-21] MEDS: FUROSEMIDE 40 MG TABLET PO (08:56)
[2024-07-21] MEDS: ASCORBIC ACID 500 MG TABLET PO (08:56)
[2024-07-21] MEDS: dilTIAZem HCL CD 180 MG CAP.24HR PO (08:57)
[2024-07-21] MEDS: EMPAGLIFLOZIN 25 MG TABLET PO (08:58)
[2024-07-21] MEDS: PYRIDOXINE HCL 50 MG TABLET 100 MG PO (10:52)
[2024-07-21 11:36] LABS: Glucose Point of Care 178 mg/dl (65-105)
[2024-07-21 11:43] LABS: Glucose Point of Care 178 mg/dl (65-105)
[2024-07-21 12:04] VITALS: PULSE 41
[2024-07-21 16:30] VITALS: BP 113/43; PULSE 54; RESP 16; TEMP 36.4; O2SAT 98
[2024-07-21 17:34] LABS: Glucose Point of Care 165 mg/dl (65-105)
[2024-07-21] MEDS: MONTELUKAST SODIUM 10 MG TABLET PO (20:23)
[2024-07-21] MEDS: DOXAZOSIN MESYLATE 2 MG TABLET 8 MG PO (20:23)
[2024-07-21] MEDS: METOPROLOL TARTRATE 50 MG TAB PO (20:24)
[2024-07-21 20:27] LABS: Glucose Point of Care 166 mg/dl (65-105)
[2024-07-21 21:30] VITALS: O2SAT 98
[2024-07-22] VITALS (8 sets, daily range): BP systolic 110–167; BP diastolic 65–89; PULSE 61–98; RESP 18–20; TEMP 36.3–36.6; O2SAT 92–95
[2024-07-22 08:05] LABS: Glucose Point of Care 158 mg/dl (65-105)
[2024-07-22] MEDS: LOSARTAN POTASSIUM 50 MG TABLET 100 MG PO (08:18)
[2024-07-22] MEDS: FUROSEMIDE 40 MG TABLET PO (08:18)
[2024-07-22] MEDS: ASCORBIC ACID 500 MG TABLET PO (08:18)
[2024-07-22] MEDS: hydrALAZINE HCL 25 MG TABLET 50 MG PO ×2 (08:19→20:37)
[2024-07-22] MEDS: CYANOCOBALAMIN 1,000 MCG TABLET 1000 MCG PO (08:20)
[2024-07-22] MEDS: APIXABAN 2.5 MG TABLET 5 MG PO ×2 (08:20→20:37)
[2024-07-22] MEDS: EMPAGLIFLOZIN 25 MG TABLET PO (08:21)
[2024-07-22] MEDS: PYRIDOXINE HCL 50 MG TABLET 100 MG PO (08:40)
[2024-07-22 11:29] LABS: Glucose Point of Care 187 mg/dl (65-105)
[2024-07-22 17:12] LABS: Glucose Point of Care 162 mg/dl (65-105)
[2024-07-22] MEDS: MONTELUKAST SODIUM 10 MG TABLET PO (20:37)
[2024-07-22] MEDS: DOXAZOSIN MESYLATE 2 MG TABLET 8 MG PO (20:37)
[2024-07-22] MEDS: traZODone HCL 50 MG TABLET PO (20:37)
[2024-07-22] MEDS: METOPROLOL TARTRATE 50 MG TAB PO (20:38)
[2024-07-22 20:41] LABS: Glucose Point of Care 193 mg/dl (65-105)
[2024-07-22] MEDS: ACETAMINOPHEN 325 MG TABLET 650 MG PO (20:41)
[2024-07-22] MEDS: guaiFENesin 12 HR 600 MG TABCR PO (20:41)
[2024-07-23] VITALS: BP 160/63; PULSE 62; RESP 17; TEMP 36.7; O2SAT 96
[2024-07-23 07:21] LABS: Glucose Point of Care 168 mg/dl (65-105)
[2024-07-23 08:00] VITALS: BP 160/84; PULSE 54; RESP 20; TEMP 37.1
[2024-07-23 08:23] VITALS: PULSE 72
[2024-07-23] MEDS: METOPROLOL TARTRATE 50 MG TAB PO (08:23)
[2024-07-23] MEDS: PYRIDOXINE HCL 50 MG TABLET 100 MG PO (08:24)
[2024-07-23] MEDS: LOSARTAN POTASSIUM 50 MG TABLET 100 MG PO (08:24)
[2024-07-23] MEDS: hydrALAZINE HCL 25 MG TABLET 50 MG PO ×2 (08:24→20:24)
[2024-07-23] MEDS: EMPAGLIFLOZIN 25 MG TABLET PO (08:24)
[2024-07-23] MEDS: FUROSEMIDE 40 MG TABLET PO (08:24)
[2024-07-23] MEDS: guaiFENesin 12 HR 600 MG TABCR PO ×2 (08:24→20:24)
[2024-07-23] MEDS: APIXABAN 2.5 MG TABLET 5 MG PO ×2 (08:24→20:24)
[2024-07-23] MEDS: ASCORBIC ACID 500 MG TABLET PO (08:25)
[2024-07-23] MEDS: dilTIAZem HCL CD 180 MG CAP.24HR PO (08:25)
[2024-07-23] MEDS: CYANOCOBALAMIN 1,000 MCG TABLET 1000 MCG PO (08:25)
[2024-07-23 12:01] LABS: Glucose Point of Care 183 mg/dl (65-105)
[2024-07-23 16:00] VITALS: BP 135/45; PULSE 46; RESP 16; TEMP 36.2; O2SAT 95
[2024-07-23 16:30] LABS: Glucose Point of Care 179 mg/dl (65-105)
[2024-07-23 20:00] VITALS: PULSE 54; RESP 16; O2SAT 95
[2024-07-23] MEDS: DOXAZOSIN MESYLATE 2 MG TABLET 8 MG PO (20:24)
[2024-07-23] MEDS: LORATADINE 10 MG TABLET PO (20:24)
[2024-07-23] MEDS: ACETAMINOPHEN 325 MG TABLET 650 MG PO (20:25)
[2024-07-23] MEDS: traZODone HCL 25 MG TABLET 75 MG PO (20:25)
[2024-07-23] MEDS: MONTELUKAST SODIUM 10 MG TABLET PO (20:25)
[2024-07-23 20:29] VITALS: PULSE 54
[2024-07-23 20:30] LABS: Glucose Point of Care 227 mg/dl (65-105)
[2024-07-24] VITALS: BP 136/45; PULSE 54; RESP 17; TEMP 36.1; O2SAT 94
[2024-07-24 08:00] VITALS: BP 150/72; PULSE 66; RESP 20; TEMP 36.3; O2SAT 97
[2024-07-24 08:10] LABS: Glucose Point of Care 168 mg/dl (65-105)
--- NOTE | 2024-07-24 08:19 | PM.EVENT ---
Event Note Event Note Event Note: Patient with bradycardia as low as 46 likely secondary to JOSE but will decrease Her metoprolol to 25 mg b.i.d. and increase hydralazine to t.i.d. to control blood pressure.
[2024-07-24] MEDS: LOSARTAN POTASSIUM 50 MG TABLET 100 MG PO (08:56)
[2024-07-24] MEDS: PYRIDOXINE HCL 50 MG TABLET 100 MG PO (08:57)
[2024-07-24] MEDS: APIXABAN 2.5 MG TABLET 5 MG PO ×2 (08:57→20:25)
[2024-07-24] MEDS: CYANOCOBALAMIN 1,000 MCG TABLET 1000 MCG PO (08:57)
[2024-07-24] MEDS: ASCORBIC ACID 500 MG TABLET PO (08:57)
[2024-07-24] MEDS: hydrALAZINE HCL 25 MG TABLET 50 MG PO ×3 (08:57→16:28)
[2024-07-24 08:58] VITALS: PULSE 73
[2024-07-24] MEDS: EMPAGLIFLOZIN 25 MG TABLET PO (08:58)
[2024-07-24] MEDS: FUROSEMIDE 40 MG TABLET PO (08:58)
[2024-07-24] MEDS: guaiFENesin 12 HR 600 MG TABCR PO ×2 (08:58→20:26)
[2024-07-24] MEDS: METOPROLOL TARTRATE 25 MG TABLET PO ×2 (08:58→20:26)
[2024-07-24] MEDS: dilTIAZem HCL CD 180 MG CAP.24HR PO (08:58)
[2024-07-24 11:41] LABS: Glucose Point of Care 178 mg/dl (65-105)
[2024-07-24] MEDS: ACETAMINOPHEN 325 MG TABLET 650 MG PO (15:06)
[2024-07-24 15:36] VITALS: BP 126/67; PULSE 63; RESP 20; TEMP 36.4; O2SAT 97
[2024-07-24 16:29] LABS: Glucose Point of Care 230 mg/dl (65-105)
[2024-07-24] MEDS: INSULIN HUMAN LISPRO (*BKC) 1,000 UNITS/10 ML VIAL SUB-Q (16:31)
--- NOTE | 2024-07-24 18:59 | PC.NURSE ---
Pt up in chair watching TV, lympedema boots applied w/ pt sitting in chair. Call parsons at side. No needs at this time.
[2024-07-24 20:00] VITALS: RESP 20; O2SAT 96
[2024-07-24] MEDS: traZODone HCL 25 MG TABLET 75 MG PO (20:23)
[2024-07-24] MEDS: MONTELUKAST SODIUM 10 MG TABLET PO (20:24)
[2024-07-24] MEDS: DOXAZOSIN MESYLATE 2 MG TABLET 8 MG PO (20:25)
[2024-07-24 20:26] VITALS: PULSE 67
[2024-07-24 21:03] LABS: Glucose Point of Care 141 mg/dl (65-105)
[2024-07-25] VITALS: BP 125/59; PULSE 68; RESP 18; TEMP 36.6; O2SAT 96
[2024-07-25 08:00] VITALS: BP 153/40; PULSE 65; RESP 20; TEMP 36.3; O2SAT 95
[2024-07-25 08:00] LABS: Glucose Point of Care 156 mg/dl (65-105)
[2024-07-25] MEDS: guaiFENesin 12 HR 600 MG TABCR PO ×2 (08:23→21:03)
[2024-07-25] MEDS: CYANOCOBALAMIN 1,000 MCG TABLET 1000 MCG PO (08:23)
[2024-07-25 08:24] VITALS: PULSE 65
[2024-07-25] MEDS: METOPROLOL TARTRATE 25 MG TABLET PO ×2 (08:24→21:04)
[2024-07-25] MEDS: FUROSEMIDE 40 MG TABLET PO (08:27)
[2024-07-25] MEDS: ASCORBIC ACID 500 MG TABLET PO (08:27)
[2024-07-25] MEDS: LOSARTAN POTASSIUM 50 MG TABLET 100 MG PO (08:27)
[2024-07-25] MEDS: dilTIAZem HCL CD 180 MG CAP.24HR PO (08:27)
[2024-07-25] MEDS: PYRIDOXINE HCL 50 MG TABLET 100 MG PO (08:27)
[2024-07-25] MEDS: APIXABAN 2.5 MG TABLET 5 MG PO ×2 (08:27→21:03)
[2024-07-25] MEDS: EMPAGLIFLOZIN 25 MG TABLET PO (08:27)
[2024-07-25] MEDS: hydrALAZINE HCL 25 MG TABLET 50 MG PO ×3 (08:27→17:06)
[2024-07-25 11:35] LABS: Glucose Point of Care 199 mg/dl (65-105)
[2024-07-25] MEDS: ACETAMINOPHEN 325 MG TABLET 650 MG PO (14:13)
[2024-07-25 16:00] VITALS: BP 135/52; PULSE 53; RESP 20; TEMP 36.5; O2SAT 95
[2024-07-25 16:48] LABS: Glucose Point of Care 147 mg/dl (65-105)
[2024-07-25 20:00] VITALS: PULSE 54; RESP 20; O2SAT 95
[2024-07-25] MEDS: traZODone HCL 25 MG TABLET 75 MG PO (21:02)
[2024-07-25] MEDS: DOXAZOSIN MESYLATE 2 MG TABLET 8 MG PO (21:02)
[2024-07-25] MEDS: MONTELUKAST SODIUM 10 MG TABLET PO (21:03)
[2024-07-25 21:04] VITALS: PULSE 55
[2024-07-25 21:07] LABS: Glucose Point of Care 191 mg/dl (65-105)
[2024-07-26] VITALS: BP 123/81; PULSE 60; RESP 15; TEMP 36.1; O2SAT 95
[2024-07-26] MEDS: LORATADINE 10 MG TABLET PO (00:36)
[2024-07-26] MEDS: ACETAMINOPHEN 325 MG TABLET 650 MG PO ×3 (00:36→21:44)
[2024-07-26 06:01] LABS: Basophils Absolute Auto 0.01 K/mm3 (0.00-0.10); Basophils Percent Auto 0.1 % (0.0-1.0); Eosinophils Absolute Auto 0.45 K/mm3 (0.02-0.50); Eosinophils Percent Auto 4.9 % (1.0-6.0); Hematocrit 31.8 % (35.0-42.0); Hemoglobin 10.3 g/dL (11.7-13.8); Immature Granulocyte Absolute 0.06 K/mm3 (0.00-0.00); Immature Granulocyte Percent A 0.7 % (0.0-0.0); Lymphocytes Absolute Auto 0.92 K/mm3 (1.10-4.50); Lymphocytes Percent Auto 10.1 % (18.0-42.0); Mean Corpuscular HGB Conc 32.4 g/dL (32-36); Mean Corpuscular Volume 98.8 fL (78.0-102.0); Mean Platelet Volume 9.7 fl (9.2-11.8); Monocytes Absolute Auto 0.81 K/mm3 (0.10-0.90); Monocytes Percent Auto 8.9 % (2.0-11.0); Neutrophils Absolute Auto 6.85 K/mm3 (1.70-7.20); Neutrophils Percent Auto 75.3 % (50.0-70.0); Platelet Count Result 229 K/mm3 (150-420); Red Blood Count 3.22 M/mm3 (4.20-5.40); Red Cell Distribution Width 13.4 % (11.6-14.4); White Blood Count 9.1 K/mm3 (4.8-10.8)
[2024-07-26 06:21] LABS: Alanine Aminotransferase 30 U/L (14-59); Albumin Level 2.9 g/dL (3.4-5.0); Alkaline Phosphatase 67 U/L (46-116); Anion Gap 10 mmol/L (4-12); Aspartate Amino Transferase 20 U/L (15-37); Calcium 8.4 mg/dL (8.5-10.1); Carbon Dioxide 28 mmol/L (21-32); Chloride 100 mmol/L (98-108); Estimated Glomerular Filt Rate 27; Glucose 157 mg/dL (70-99); Magnesium 1.9 mg/dL (1.8-2.4); Potassium 4.1 mmol/L (3.5-5.1); Sodium 138 mmol/L (136-145); Total Protein 6.1 g/dL (6.4-8.2)
[2024-07-26 06:50] LABS: Bilirubin,Total 0.9 mg/dL (0.00-1.00)
[2024-07-26 07:13] LABS: Blood Urea Nitrogen 49 mg/dL (7-18); Osmolality Calculated 302 mOsm/kg (285-295)
[2024-07-26 07:40] VITALS: BP 136/88; PULSE 58; RESP 16; TEMP 36; O2SAT 96
[2024-07-26 08:00] VITALS: PULSE 58; RESP 16; O2SAT 96
[2024-07-26] MEDS: CYANOCOBALAMIN 1,000 MCG TABLET 1000 MCG PO (09:23)
[2024-07-26] MEDS: PYRIDOXINE HCL 50 MG TABLET 100 MG PO (09:23)
[2024-07-26] MEDS: LOSARTAN POTASSIUM 50 MG TABLET 100 MG PO (09:23)
[2024-07-26] MEDS: dilTIAZem HCL CD 180 MG CAP.24HR PO (09:23)
[2024-07-26 09:24] VITALS: PULSE 58
[2024-07-26] MEDS: METOPROLOL TARTRATE 25 MG TABLET PO ×2 (09:24→21:43)
[2024-07-26] MEDS: APIXABAN 2.5 MG TABLET 5 MG PO ×2 (09:24→21:43)
[2024-07-26] MEDS: EMPAGLIFLOZIN 25 MG TABLET PO (09:24)
[2024-07-26] MEDS: ASCORBIC ACID 500 MG TABLET PO (09:24)
[2024-07-26] MEDS: hydrALAZINE HCL 25 MG TABLET 50 MG PO ×3 (09:24→16:47)
[2024-07-26] MEDS: guaiFENesin 12 HR 600 MG TABCR PO ×2 (09:24→21:44)
[2024-07-26] MEDS: FUROSEMIDE 40 MG TABLET PO (09:24)
[2024-07-26 11:43] LABS: Glucose Point of Care 223 mg/dl (65-105)
[2024-07-26] MEDS: INSULIN HUMAN LISPRO (*BKC) 1,000 UNITS/10 ML VIAL SUB-Q (11:45)
[2024-07-26 16:35] VITALS: BP 122/64; PULSE 54; RESP 16; TEMP 36.1; O2SAT 95
[2024-07-26 16:53] LABS: Glucose Point of Care 116 mg/dl (65-105)
--- NOTE | 2024-07-26 17:29 | PC.NURSE ---
Informed NOODLE MAKER, Pt requesting Tessalon Pastora for her cough at night.
--- NOTE | 2024-07-26 17:32 | PC.NURSE ---
Verbal order read back and confirmed for Mariela Guillory TIMark PRN, order placed.
[2024-07-26] MEDS: BENZONATATE 100 MG CAPSULE 200 MG PO (17:57)
[2024-07-26 20:10] LABS: Glucose Point of Care 176 mg/dl (65-105)
[2024-07-26] MEDS: traZODone HCL 25 MG TABLET 75 MG PO (21:42)
[2024-07-26] MEDS: MONTELUKAST SODIUM 10 MG TABLET PO (21:42)
[2024-07-26 21:43] VITALS: PULSE 76
[2024-07-26] MEDS: DOXAZOSIN MESYLATE 2 MG TABLET 8 MG PO (21:44)
--- NOTE | 2024-07-26 22:38 | PC.NURSE ---
report to trenton lópez all questions answered
[2024-07-27] VITALS: BP 132/47; PULSE 52; RESP 16; TEMP 36.6; O2SAT 96
[2024-07-27] MEDS: ACETAMINOPHEN 325 MG TABLET 650 MG PO ×3 (06:17→21:12)
[2024-07-27 07:35] LABS: Glucose Point of Care 156 mg/dl (65-105)
--- NOTE | 2024-07-27 07:44 | P.PNIM_ITS ---
Progress Note: A&P Assessment and Plan (1) Weakness: Code(s): R53.1 - Weakness Status: Acute Assessment and Plan: * PT and OT ordered (2) HTN (hypertension): Qualifiers: Hypertension type: essential hypertension Qualified Code(s): I10 - Essential (primary) hypertension Code(s): I10 - Essential (primary) hypertension Status: Acute Assessment and Plan: * blood pressure ranging 129/59 to 147/52 * continue metoprolol, losartan 07/27: * HR around 58 overnight likely secondary to her JOSE I had decreased to metoprolol HR mid 60's during the day * BP WNL * 44 HR this am will hold Cardizem and BB decrease BB when HR can tolerate (3) Congestive heart failure: Qualifiers: Heart failure chronicity: unspecified Code(s): I50.9 - Heart failure, unspecified Status: Acute Assessment and Plan: * continue metoprolol, losartan, Lasix, Jardiance (4) Atrial fibrillation: Qualifiers: Atrial fibrillation type: longstanding persistent Qualified Code(s): I48.11 - Longstanding persistent atrial fibrillation Code(s): I48.91 - Unspecified atrial fibrillation Status: Acute Assessment and Plan: * continue Cardizem and Eliquis (5) Type 2 diabetes mellitus with obesity: Code(s): E11.69 - Type 2 diabetes mellitus with other specified complication; E66.9 - Obesity, unspecified Status: Chronic Assessment and Plan: * Blood sugars ranging 187-245 * Hgb A1C 6.2 * Accu checks AC/HS * high-dose SSI ordered * hypoglycemic protocol in place * Diabetic diet ordered 07/27: * No change (6) Chronic acquired lymphedema: Code(s): I89.0 - Lymphedema, not elsewhere classified Status: Chronic Assessment and Plan: * bilateral lower extremity * wear lymphedema boots for 1 hour per day (7) Congestion of nasal sinus: Code(s): R09.81 - Nasal congestion Status: Acute Assessment and Plan: * Add Jenny * Mariela eric for cough (8) UTI (urinary tract infection): Code(s): N39.0 - Urinary tract infection, site not specified Status: Resolved Assessment and Plan: * urine culture showing E coli * finish full course of cefuroxime while inpatient at [facility] * blood cultures were negative (9) COVID: Code(s): U07.1 - COVID-19 Status: Resolved Assessment and Plan: * continue to wean O2 for sat greater than 92% * supportive care (10) JOSE on CPAP: Code(s): G47.33 - Obstructive sleep apnea (adult) (pediatric); Z99.89 - Dependence on other enabling machines and devices Status: Chronic Assessment and Plan: * Resumed home CPAP Plan Code status: Full code per patient DVT prophylaxis: Bessy Stress ulcer prophylaxis: NA PT/OT notes: SWING BED Disposition: Patient continues admission for physical and occupational therapy to increase strength and endurance care conference was 2 days ago patient continue with therapy at another week plan is to return medically stable. Time Spent With Patient Time with patient: 15 - 25 minutes Subjective Date/time seen: 07/27/24 07:44 Interval history: Patient is an 79 year old female who is admitted for rehabilitation an extended hospital stay due to deconditioned state 07/27/24: Patient in no acute distress slept well overnight and feels she is progress with physical therapy. Did have complaints of post nasal drip and cough. CPAP cord was brought in and she tolerated her home CPAP overnight. Review of Systems Review of Systems: All systems reviewed & are unremarkable except as noted in HPI and below Exam Narrative: General: In no acute distress, well nourished ENT: moist mucous membranes Neck: supple, no JVD, trachea midline Cardiac: Normal S1 and S2. No murmur, Respiratory: Lungs diminished, no adventitious lung sounds on room air Gastrointestinal: soft, non-distended, non-tender, normoactive bowel sounds. : voiding without difficulty. Extremities: Bilateral lower extremity lymphedema Skin: clean, dry, intact. No wounds or lesions. Neuro: Alert and oriented x4 Objective Data Vital Signs Vital Signs: Vital Signs - 24 hr 07/26/24 08:00 07/26/24 09:24 07/26/24 16:35 Temperature 96.9 F L Pulse Rate 58 L 58 L 54 L Respiratory Rate 16 16 Blood Pressure 122/64 Pulse Oximetry 96 95 Oxygen Delivery Room Air Room Air 07/26/24 21:43 07/27/24 00:00 Temperature 97.9 F Pulse Rate 76 52 L Respiratory Rate 16 Blood Pressure 132/47 L Pulse Oximetry 96 Oxygen Delivery CPAP Intake/Output Intake/Output: Intake & Output 07/24/24 07/25/24 07/26/24 07/27/24 23:59 23:59 23:59 23:59 Intake Total 0183 926 2407 250 Balance 8625 419 5011 250 Meds/Results Medications: Active Medications Generic Name Dose Route Start Last Admin Trade Name Freq PRN Reason Stop Dose Admin Acetaminophen 650 mg 07/20/24 00:20 07/27/24 06:17 Acetaminophen 325 Mg Tablet PO 650 mg Q4H PRN Administration Pain or Fever Apixaban 5 mg 07/19/24 22:55 07/26/24 21:43 Apixaban 2.5 Mg Tablet PO 5 mg Q12HR JAYLENE Administration Ascorbic Acid 500 mg 07/20/24 09:00 07/26/24 09:24 Ascorbic Acid 500 Mg Tablet PO 500 mg DAILY JAYLENE Administration Benzonatate 200 mg 07/26/24 17:30 07/26/24 17:57 Benzonatate 100 Mg Capsule PO 200 mg TID PRN Administration Cough Cyanocobalamin 1,000 mcg 07/20/24 09:00 07/26/24 09:23 Cyanocobalamin 1,000 Mcg Tablet PO 1,000 mcg DAILY JAYLENE Administration Dextrose 12.5 gm 07/20/24 18:02 Dextrose 50% 25 Gm/50 Ml Syringe IV PUSH PRN PRN Hypoglycemia Protocol Diltiazem HCl 180 mg 07/20/24 09:00 07/26/24 09:23 Diltiazem Hcl Cd 180 Mg Cap.24hr PO 180 mg DAILY JAYLENE Administration Doxazosin Mesylate 8 mg 07/19/24 22:55 07/26/24 21:44 Doxazosin Mesylate 2 Mg Tablet PO 8 mg HS JAYLENE Administration Empagliflozin 25 mg 07/20/24 09:00 07/26/24 09:24 Empagliflozin 25 Mg Tablet PO 25 mg QAM JAYLENE Administration Furosemide 40 mg 07/20/24 09:00 07/26/24 09:24 Furosemide 40 Mg Tablet PO 40 mg DAILY JAYLENE Administration Glucagon 1 mg 07/20/24 18:02 Glucagon For Inj 1 Mg Vial IM PRN PRN Hypoglycemia Protocol Glucose 15 gm 07/20/24 18:02 Glucose Oral Gel 15 Gm Of Glucse In 37.5 Gm Tube PO PRN PRN Hypoglycemia Protocol Guaifenesin 600 mg 07/22/24 21:00 07/26/24 21:44 Guaifenesin 12 Hr 600 Mg Tabcr PO 600 mg Q12HR JAYLENE Administration Hydralazine HCl 50 mg 07/24/24 09:00 07/26/24 16:47 Hydralazine Hcl 25 Mg Tablet PO 50 mg TID JAYLENE Administration Dextrose 1,000 mls @ 100 mls/hr 07/20/24 18:02 Dextrose 5% 1,000 Ml IVPB PRN PRN Hypoglycemia Protocol Insulin Human Lispro 4 - 8 units 07/21/24 08:00 07/26/24 16:48 Insulin Human Lispro (*Bkc) 1,000 Units/10 Ml Vial SUB-Q Not Given TIDWM JAYLENE Protocol Loratadine 10 mg 07/19/24 22:54 07/26/24 00:36 Loratadine 10 Mg Tablet PO 10 mg DAILY PRN Administration allergy symptoms Losartan Potassium 100 mg 07/20/24 09:00 07/26/24 09:23 Losartan Potassium 50 Mg Tablet PO 100 mg DAILY JAYLENE Administration Metoprolol Tartrate 25 mg 07/24/24 09:00 07/26/24 21:43 Metoprolol Tartrate 25 Mg Tablet PO 25 mg Q12HR JAYLENE Administration Montelukast Sodium 10 mg 07/19/24 23:00 07/26/24 21:42 Montelukast Sodium 10 Mg Tablet PO 10 mg HS JAYLENE Administration Pyridoxine HCl 100 mg 07/20/24 09:00 07/26/24 09:23 Pyridoxine Hcl 50 Mg Tablet PO 100 mg DAILY JAYLENE Administration Trazodone HCl 75 mg 07/23/24 21:00 07/26/24 21:42 Trazodone Hcl 25 Mg Tablet PO 75 mg HS JAYLENE Administration Labs Labs: Laboratory Results - last 24 hr 07/26/24 07/26/24 07/26/24 11:41 16:46 20:08 POC Capillary Glucose 223 H 116 H 176 H 07/27/24 07:30 POC Capillary Glucose 156 H Quality VTE Prophylaxis VTE prophylaxis: pharmacologic ordered -Patient's previous records reviewed on admission -ER notes reviewed in detail on admission -discussed all findings and current treatment plan with patient/Family/POA -Consultations reviewed for recommendations -Patient's disposition for safe discharge discussed with case assembler Dictation performed by [employer] direct speech recognition software, therefore physician practice consultant variants and typographical errors may occur. Hospitalist MIPS Advance Care Plan I have confirmed that the patient's Advanced Care Plan is present, code status is documented, or surrogate decision maker is listed in patient medical record.: Yes Medication Reconciliation I have utilized all available resources to obtain, update and review the patients current medications (includes all prescriptions, OTC, herbals, cannabis, and nutritional supplements).: Yes The patient is not eligible for med reconciliation; the patient is in a emergent medical situation where delaying treatment would jeopardize the patients health.: No
[2024-07-27 08:00] VITALS: BP 136/45; PULSE 44; RESP 16; TEMP 35.9; O2SAT 97
[2024-07-27 08:20] LABS: Hematocrit 33.9 % (35.0-42.0); Mean Corpuscular HGB Conc 32.4 g/dL (32-36); Mean Corpuscular Hemoglobin 32.2 pg (27.0-31.0); Mean Corpuscular Volume 99.1 fL (78.0-102.0); Mean Platelet Volume 9.5 fl (9.2-11.8); Platelet Count Result 246 K/mm3 (150-420); Red Blood Count 3.42 M/mm3 (4.20-5.40); Red Cell Distribution Width 13.7 % (11.6-14.4); White Blood Count 7.7 K/mm3 (4.8-10.8)
[2024-07-27 08:36] LABS: Alanine Aminotransferase 33 U/L (14-59); Albumin Level 3.3 g/dL (3.4-5.0); Alkaline Phosphatase 86 U/L (46-116); Anion Gap 8 mmol/L (4-12); Aspartate Amino Transferase 20 U/L (15-37); Bilirubin,Total 0.9 mg/dL (0.00-1.00); Blood Urea Nitrogen 47 mg/dL (7-18); Calcium 8.9 mg/dL (8.5-10.1); Carbon Dioxide 30 mmol/L (21-32); Chloride 100 mmol/L (98-108); Estimated Glomerular Filt Rate 26; Glucose 160 mg/dL (70-99); Osmolality Calculated 301 mOsm/kg (285-295); Potassium 3.9 mmol/L (3.5-5.1); Sodium 138 mmol/L (136-145); Total Protein 6.8 g/dL (6.4-8.2)
[2024-07-27] MEDS: BENZONATATE 100 MG CAPSULE 200 MG PO ×3 (08:54→21:16)
[2024-07-27] MEDS: hydrALAZINE HCL 25 MG TABLET 50 MG PO ×3 (08:54→17:28)
[2024-07-27] MEDS: LOSARTAN POTASSIUM 50 MG TABLET 100 MG PO (08:55)
[2024-07-27] MEDS: PYRIDOXINE HCL 50 MG TABLET 100 MG PO (08:55)
[2024-07-27] MEDS: ASCORBIC ACID 500 MG TABLET PO (08:55)
[2024-07-27 08:56] VITALS: PULSE 44
[2024-07-27] MEDS: EMPAGLIFLOZIN 25 MG TABLET PO (08:56)
[2024-07-27] MEDS: FUROSEMIDE 40 MG TABLET PO (08:56)
[2024-07-27] MEDS: guaiFENesin 12 HR 600 MG TABCR PO ×2 (08:56→21:12)
[2024-07-27] MEDS: CYANOCOBALAMIN 1,000 MCG TABLET 1000 MCG PO (08:57)
[2024-07-27] MEDS: APIXABAN 2.5 MG TABLET 5 MG PO ×2 (08:58→21:12)
[2024-07-27] MEDS: INSULIN HUMAN LISPRO (*BKC) 1,000 UNITS/10 ML VIAL SUB-Q (11:33)
[2024-07-27 11:36] LABS: Glucose Point of Care 238 mg/dl (65-105)
[2024-07-27 16:00] VITALS: BP 129/44; PULSE 70; RESP 16; TEMP 36.2; O2SAT 94
[2024-07-27 16:38] LABS: Glucose Point of Care 149 mg/dl (65-105)
[2024-07-27 20:00] VITALS: PULSE 68; RESP 16; O2SAT 94
[2024-07-27] MEDS: DOXAZOSIN MESYLATE 2 MG TABLET 8 MG PO (21:09)
[2024-07-27] MEDS: traZODone HCL 25 MG TABLET 75 MG PO (21:09)
[2024-07-27 21:10] VITALS: PULSE 71
[2024-07-27] MEDS: MONTELUKAST SODIUM 10 MG TABLET PO (21:10)
[2024-07-27] MEDS: METOPROLOL TARTRATE 12.5 MG TABLET PO (21:10)
[2024-07-27 21:27] LABS: Glucose Point of Care 174 mg/dl (65-105)
[2024-07-28] VITALS: BP 129/55; PULSE 69; RESP 16; TEMP 36.1; O2SAT 95
[2024-07-28 07:36] LABS: Glucose Point of Care 137 mg/dl (65-105)
[2024-07-28 08:00] VITALS: BP 155/50; PULSE 68; RESP 16; TEMP 36.3; O2SAT 94
[2024-07-28] MEDS: BENZONATATE 100 MG CAPSULE 200 MG PO ×2 (08:22→21:25)
[2024-07-28] MEDS: ACETAMINOPHEN 325 MG TABLET 650 MG PO ×2 (08:22→21:25)
[2024-07-28 08:23] VITALS: PULSE 68
[2024-07-28] MEDS: LOSARTAN POTASSIUM 50 MG TABLET 100 MG PO (08:23)
[2024-07-28] MEDS: METOPROLOL TARTRATE 12.5 MG TABLET PO (08:23)
[2024-07-28] MEDS: ASCORBIC ACID 500 MG TABLET PO (08:24)
[2024-07-28] MEDS: dilTIAZem HCL CD 180 MG CAP.24HR PO (08:24)
[2024-07-28] MEDS: hydrALAZINE HCL 25 MG TABLET 50 MG PO ×3 (08:24→17:18)
[2024-07-28] MEDS: guaiFENesin 12 HR 600 MG TABCR PO ×2 (08:24→21:26)
[2024-07-28] MEDS: APIXABAN 2.5 MG TABLET 5 MG PO ×2 (08:24→21:28)
[2024-07-28] MEDS: PYRIDOXINE HCL 50 MG TABLET 100 MG PO (08:25)
[2024-07-28] MEDS: EMPAGLIFLOZIN 25 MG TABLET PO (08:25)
[2024-07-28] MEDS: FUROSEMIDE 40 MG TABLET PO (08:25)
[2024-07-28] MEDS: CYANOCOBALAMIN 1,000 MCG TABLET 1000 MCG PO (08:25)
[2024-07-28 11:38] LABS: Glucose Point of Care 186 mg/dl (65-105)
[2024-07-28 16:00] VITALS: BP 118/55; PULSE 57; RESP 18; TEMP 36.2; O2SAT 93
[2024-07-28 16:28] LABS: Glucose Point of Care 142 mg/dl (65-105)
[2024-07-28 20:00] VITALS: PULSE 67; RESP 18; O2SAT 93
[2024-07-28] MEDS: traZODone HCL 25 MG TABLET 75 MG PO (21:24)
[2024-07-28] MEDS: MONTELUKAST SODIUM 10 MG TABLET PO (21:26)
[2024-07-28 21:28] VITALS: PULSE 49
[2024-07-28] MEDS: LORATADINE 10 MG TABLET PO (21:28)
[2024-07-28] MEDS: DOXAZOSIN MESYLATE 2 MG TABLET 8 MG PO (21:29)
[2024-07-28 21:40] LABS: Glucose Point of Care 149 mg/dl (65-105)
[2024-07-29] VITALS: BP 105/65; PULSE 62; RESP 16; TEMP 36.2; O2SAT 95
[2024-07-29 08:00] VITALS: BP 123/73; PULSE 60; RESP 20; TEMP 35.9; O2SAT 97
[2024-07-29 08:04] LABS: Glucose Point of Care 152 mg/dl (65-105)
[2024-07-29 09:34] VITALS: PULSE 60
[2024-07-29] MEDS: METOPROLOL TARTRATE 12.5 MG TABLET PO ×2 (09:34→20:39)
[2024-07-29] MEDS: hydrALAZINE HCL 25 MG TABLET 50 MG PO ×3 (09:34→17:32)
[2024-07-29] MEDS: ASCORBIC ACID 500 MG TABLET PO (09:35)
[2024-07-29] MEDS: ACETAMINOPHEN 325 MG TABLET 650 MG PO ×2 (09:35→20:40)
[2024-07-29] MEDS: CYANOCOBALAMIN 1,000 MCG TABLET 1000 MCG PO (09:35)
[2024-07-29] MEDS: LOSARTAN POTASSIUM 50 MG TABLET 100 MG PO (09:35)
[2024-07-29] MEDS: EMPAGLIFLOZIN 25 MG TABLET PO (09:35)
[2024-07-29] MEDS: APIXABAN 2.5 MG TABLET 5 MG PO (09:35)
[2024-07-29] MEDS: dilTIAZem HCL CD 180 MG CAP.24HR PO (09:35)
[2024-07-29] MEDS: PYRIDOXINE HCL 50 MG TABLET 100 MG PO (09:35)
[2024-07-29] MEDS: guaiFENesin 12 HR 600 MG TABCR PO ×2 (09:35→20:39)
[2024-07-29] MEDS: FUROSEMIDE 40 MG TABLET PO (09:35)
[2024-07-29 11:57] LABS: Glucose Point of Care 181 mg/dl (65-105)
[2024-07-29 16:00] VITALS: BP 118/47; PULSE 72; RESP 20; TEMP 36.5; O2SAT 97
[2024-07-29 16:50] LABS: Glucose Point of Care 162 mg/dl (65-105)
[2024-07-29 20:00] VITALS: PULSE 60; RESP 20; O2SAT 97
[2024-07-29] MEDS: MONTELUKAST SODIUM 10 MG TABLET PO (20:38)
[2024-07-29 20:39] VITALS: PULSE 60
[2024-07-29] MEDS: BENZONATATE 100 MG CAPSULE 200 MG PO (20:39)
[2024-07-29] MEDS: LORATADINE 10 MG TABLET PO (20:39)
[2024-07-29] MEDS: traZODone HCL 25 MG TABLET 75 MG PO (20:39)
[2024-07-29] MEDS: DOXAZOSIN MESYLATE 2 MG TABLET 8 MG PO (20:39)
[2024-07-29] MEDS: APIXABAN 2.5 MG TABLET PO (20:39)
[2024-07-29 20:44] LABS: Glucose Point of Care 196 mg/dl (65-105)
[2024-07-30] VITALS: BP 135/64; PULSE 60; RESP 16; TEMP 36.1; O2SAT 97
[2024-07-30 08:00] VITALS: BP 111/47; PULSE 66; RESP 18; TEMP 36.1; O2SAT 95
[2024-07-30 08:02] LABS: Glucose Point of Care 153 mg/dl (65-105)
[2024-07-30] MEDS: LOSARTAN POTASSIUM 50 MG TABLET 100 MG PO (09:18)
[2024-07-30] MEDS: hydrALAZINE HCL 25 MG TABLET 50 MG PO ×3 (09:18→17:51)
[2024-07-30] MEDS: FUROSEMIDE 40 MG TABLET PO (09:18)
[2024-07-30 09:19] VITALS: PULSE 66
[2024-07-30] MEDS: dilTIAZem HCL CD 180 MG CAP.24HR PO (09:19)
[2024-07-30] MEDS: ASCORBIC ACID 500 MG TABLET PO (09:19)
[2024-07-30] MEDS: PYRIDOXINE HCL 50 MG TABLET 100 MG PO (09:19)
[2024-07-30] MEDS: EMPAGLIFLOZIN 25 MG TABLET PO (09:19)
[2024-07-30] MEDS: CYANOCOBALAMIN 1,000 MCG TABLET 1000 MCG PO (09:19)
[2024-07-30] MEDS: guaiFENesin 12 HR 600 MG TABCR PO ×2 (09:19→20:14)
[2024-07-30] MEDS: ACETAMINOPHEN 325 MG TABLET 650 MG PO ×2 (09:19→20:19)
[2024-07-30] MEDS: METOPROLOL TARTRATE 12.5 MG TABLET PO ×2 (09:19→20:14)
[2024-07-30] MEDS: BENZONATATE 100 MG CAPSULE 200 MG PO ×2 (09:19→20:19)
[2024-07-30] MEDS: APIXABAN 2.5 MG TABLET PO ×2 (09:19→20:14)
[2024-07-30 12:04] LABS: Glucose Point of Care 189 mg/dl (65-105)
[2024-07-30 16:00] VITALS: BP 124/46; PULSE 59; RESP 17; TEMP 36.1; O2SAT 96
[2024-07-30 17:07] LABS: Glucose Point of Care 173 mg/dl (65-105)
[2024-07-30] MEDS: DOXAZOSIN MESYLATE 2 MG TABLET 8 MG PO (20:13)
[2024-07-30 20:14] VITALS: PULSE 68
[2024-07-30] MEDS: MONTELUKAST SODIUM 10 MG TABLET PO (20:14)
[2024-07-30] MEDS: traZODone HCL 25 MG TABLET 75 MG PO (20:14)
[2024-07-30 20:16] LABS: Glucose Point of Care 167 mg/dl (65-105)
[2024-07-31] VITALS (7 sets, daily range): BP systolic 88–134; BP diastolic 48–54; PULSE 60–91; RESP 18–19; TEMP 36.3–36.6; O2SAT 94–96
[2024-07-31 08:09] LABS: Glucose Point of Care 165 mg/dl (65-105)
[2024-07-31] MEDS: PYRIDOXINE HCL 50 MG TABLET 100 MG PO (09:53)
[2024-07-31] MEDS: hydrALAZINE HCL 25 MG TABLET 50 MG PO ×3 (09:54→17:31)
[2024-07-31] MEDS: FUROSEMIDE 40 MG TABLET PO (09:54)
[2024-07-31] MEDS: dilTIAZem HCL CD 180 MG CAP.24HR PO (09:54)
[2024-07-31] MEDS: EMPAGLIFLOZIN 25 MG TABLET PO (09:54)
[2024-07-31] MEDS: CYANOCOBALAMIN 1,000 MCG TABLET 1000 MCG PO (09:54)
[2024-07-31] MEDS: BENZONATATE 100 MG CAPSULE 200 MG PO ×2 (09:54→20:47)
[2024-07-31] MEDS: APIXABAN 2.5 MG TABLET PO ×2 (09:54→20:46)
[2024-07-31] MEDS: METOPROLOL TARTRATE 12.5 MG TABLET PO ×2 (09:54→20:46)
[2024-07-31] MEDS: ASCORBIC ACID 500 MG TABLET PO (09:54)
[2024-07-31] MEDS: ACETAMINOPHEN 325 MG TABLET 650 MG PO ×2 (09:54→20:47)
[2024-07-31] MEDS: guaiFENesin 12 HR 600 MG TABCR PO ×2 (09:54→20:46)
[2024-07-31] MEDS: LOSARTAN POTASSIUM 50 MG TABLET 100 MG PO (09:54)
[2024-07-31 12:02] LABS: Glucose Point of Care 214 mg/dl (65-105)
[2024-07-31] MEDS: INSULIN HUMAN LISPRO (*BKC) 1,000 UNITS/10 ML VIAL SUB-Q (12:57)
[2024-07-31 16:56] LABS: Glucose Point of Care 138 mg/dl (65-105)
--- NOTE | 2024-07-31 20:00 | PC.NURSE ---
Patient refused her lymphedema boots this evening
[2024-07-31] MEDS: MONTELUKAST SODIUM 10 MG TABLET PO (20:46)
[2024-07-31] MEDS: traZODone HCL 25 MG TABLET 75 MG PO (20:46)
[2024-07-31] MEDS: DOXAZOSIN MESYLATE 2 MG TABLET 8 MG PO (20:47)
[2024-07-31 20:48] LABS: Glucose Point of Care 157 mg/dl (65-105)
[2024-08-01] VITALS: BP 135/43; PULSE 64; RESP 18; TEMP 36.2; O2SAT 96
[2024-08-01 08:00] VITALS: BP 121/36; PULSE 57; RESP 18; TEMP 36.4; O2SAT 94
[2024-08-01 08:08] LABS: Glucose Point of Care 131 mg/dl (65-105)
[2024-08-01] MEDS: hydrALAZINE HCL 25 MG TABLET 50 MG PO ×3 (08:32→16:53)
[2024-08-01] MEDS: CYANOCOBALAMIN 1,000 MCG TABLET 1000 MCG PO (08:32)
[2024-08-01] MEDS: dilTIAZem HCL CD 180 MG CAP.24HR PO (08:32)
[2024-08-01 08:33] VITALS: PULSE 57
[2024-08-01] MEDS: LOSARTAN POTASSIUM 50 MG TABLET 100 MG PO (08:33)
[2024-08-01] MEDS: EMPAGLIFLOZIN 25 MG TABLET PO (08:34)
[2024-08-01] MEDS: FUROSEMIDE 40 MG TABLET PO (08:34)
[2024-08-01] MEDS: PYRIDOXINE HCL 50 MG TABLET 100 MG PO (08:34)
[2024-08-01] MEDS: APIXABAN 2.5 MG TABLET PO ×2 (08:34→20:39)
[2024-08-01] MEDS: ASCORBIC ACID 500 MG TABLET PO (08:35)
[2024-08-01] MEDS: guaiFENesin 12 HR 600 MG TABCR PO ×2 (08:35→20:38)
[2024-08-01] MEDS: ACETAMINOPHEN 325 MG TABLET 650 MG PO (10:05)
[2024-08-01] MEDS: BENZONATATE 100 MG CAPSULE 200 MG PO ×2 (10:06→20:38)
[2024-08-01 11:53] LABS: Glucose Point of Care 193 mg/dl (65-105)
[2024-08-01 16:00] VITALS: BP 148/64; PULSE 56; RESP 16; TEMP 36.7; O2SAT 98
[2024-08-01 16:25] LABS: Glucose Point of Care 144 mg/dl (65-105)
[2024-08-01 20:00] VITALS: PULSE 60; RESP 16; O2SAT 98
[2024-08-01 20:38] LABS: Glucose Point of Care 159 mg/dl (65-105)
[2024-08-01] MEDS: traZODone HCL 25 MG TABLET 75 MG PO (20:38)
[2024-08-01 20:39] VITALS: PULSE 60
[2024-08-01] MEDS: MONTELUKAST SODIUM 10 MG TABLET PO (20:39)
[2024-08-01] MEDS: DOXAZOSIN MESYLATE 2 MG TABLET 8 MG PO (20:39)
[2024-08-01] MEDS: METOPROLOL TARTRATE 12.5 MG TABLET PO (20:39)
[2024-08-02] VITALS: BP 137/52; PULSE 60; RESP 18; TEMP 36.7; O2SAT 96
[2024-08-02 07:36] LABS: Glucose Point of Care 181 mg/dl (65-105)
[2024-08-02 08:00] VITALS: BP 121/59; PULSE 62; RESP 18; TEMP 36.6; O2SAT 96
[2024-08-02] MEDS: hydrALAZINE HCL 25 MG TABLET 50 MG PO ×3 (10:10→16:32)
[2024-08-02 10:11] VITALS: PULSE 63
[2024-08-02] MEDS: METOPROLOL TARTRATE 12.5 MG TABLET PO ×2 (10:11→20:41)
[2024-08-02] MEDS: PYRIDOXINE HCL 50 MG TABLET 100 MG PO (10:11)
[2024-08-02] MEDS: dilTIAZem HCL CD 180 MG CAP.24HR PO (10:12)
[2024-08-02] MEDS: FUROSEMIDE 40 MG TABLET PO (10:12)
[2024-08-02] MEDS: LOSARTAN POTASSIUM 50 MG TABLET 100 MG PO (10:12)
[2024-08-02] MEDS: EMPAGLIFLOZIN 25 MG TABLET PO (10:12)
[2024-08-02] MEDS: guaiFENesin 12 HR 600 MG TABCR PO ×2 (10:12→20:40)
[2024-08-02] MEDS: APIXABAN 2.5 MG TABLET PO ×2 (10:12→20:41)
[2024-08-02] MEDS: ASCORBIC ACID 500 MG TABLET PO (10:12)
[2024-08-02] MEDS: CYANOCOBALAMIN 1,000 MCG TABLET 1000 MCG PO (10:13)
[2024-08-02 11:49] LABS: Glucose Point of Care 207 mg/dl (65-105)
[2024-08-02 16:00] VITALS: BP 118/32; PULSE 57; RESP 16; TEMP 36.6; O2SAT 96
[2024-08-02 16:33] LABS: Glucose Point of Care 176 mg/dl (65-105)
[2024-08-02 20:00] VITALS: PULSE 59; RESP 16; O2SAT 96
[2024-08-02 20:38] LABS: Glucose Point of Care 162 mg/dl (65-105)
[2024-08-02] MEDS: DOXAZOSIN MESYLATE 2 MG TABLET 8 MG PO (20:40)
[2024-08-02] MEDS: traZODone HCL 25 MG TABLET 75 MG PO (20:40)
[2024-08-02 20:41] VITALS: PULSE 60
[2024-08-02] MEDS: ACETAMINOPHEN 325 MG TABLET 650 MG PO (20:41)
[2024-08-02] MEDS: MONTELUKAST SODIUM 10 MG TABLET PO (20:41)
[2024-08-02] MEDS: BENZONATATE 100 MG CAPSULE 200 MG PO (20:41)
[2024-08-03] VITALS: BP 113/30; PULSE 60; RESP 16; TEMP 36.9; O2SAT 96
[2024-08-03 05:30] LABS: Basophils Absolute Auto 0.03 K/mm3 (0.00-0.10); Basophils Percent Auto 0.6 % (0.0-1.0); Eosinophils Percent Auto 4.2 % (1.0-6.0); Hematocrit 30.5 % (35.0-42.0); Hemoglobin 9.9 g/dL (11.7-13.8); Immature Granulocyte Absolute 0.01 K/mm3 (0.00-0.00); Immature Granulocyte Percent A 0.2 % (0.0-0.0); Lymphocytes Absolute Auto 0.83 K/mm3 (1.10-4.50); Lymphocytes Percent Auto 17.5 % (18.0-42.0); Mean Corpuscular HGB Conc 32.5 g/dL (32-36); Mean Corpuscular Hemoglobin 32.4 pg (27.0-31.0); Mean Corpuscular Volume 99.7 fL (78.0-102.0); Mean Platelet Volume 8.9 fl (9.2-11.8); Monocytes Absolute Auto 0.48 K/mm3 (0.10-0.90); Monocytes Percent Auto 10.1 % (2.0-11.0); Neutrophils Percent Auto 67.4 % (50.0-70.0); Platelet Count Result 178 K/mm3 (150-420); Red Blood Count 3.06 M/mm3 (4.20-5.40); Red Cell Distribution Width 13.8 % (11.6-14.4); White Blood Count 4.8 K/mm3 (4.8-10.8)
[2024-08-03 05:54] LABS: Alanine Aminotransferase 28 U/L (14-59); Albumin Level 2.9 g/dL (3.4-5.0); Alkaline Phosphatase 73 U/L (46-116); Anion Gap 9 mmol/L (4-12); Aspartate Amino Transferase 20 U/L (15-37); Bilirubin,Total 0.7 mg/dL (0.00-1.00); Blood Urea Nitrogen 57 mg/dL (7-18); Calcium 8.7 mg/dL (8.5-10.1); Carbon Dioxide 28 mmol/L (21-32); Chloride 100 mmol/L (98-108); Estimated Glomerular Filt Rate 22; Glucose 133 mg/dL (70-99); Magnesium 2.2 mg/dL (1.8-2.4); Osmolality Calculated 301 mOsm/kg (285-295); Potassium 4.2 mmol/L (3.5-5.1); Sodium 137 mmol/L (136-145); Total Protein 6.1 g/dL (6.4-8.2)
[2024-08-03 08:00] VITALS: BP 125/64; PULSE 62; RESP 14; TEMP 36.6; O2SAT 95
[2024-08-03 08:04] LABS: Glucose Point of Care 159 mg/dl (65-105)
--- NOTE | 2024-08-03 08:16 | P.PNIM_ITS ---
Progress Note: A&P Assessment and Plan (1) Weakness: Code(s): R53.1 - Weakness Status: Acute Assessment and Plan: * PT and OT ordered 08/03 * continue PT and OT * care conference scheduled for the (2) HTN (hypertension): Qualifiers: Hypertension type: essential hypertension Qualified Code(s): I10 - Essential (primary) hypertension Code(s): I10 - Essential (primary) hypertension Status: Acute Assessment and Plan: * blood pressure ranging 129/59 to 147/52 * continue metoprolol, losartan 07/27: * HR around 58 overnight likely secondary to her JOSE I had decreased to metoprolol HR mid 60's during the day * BP WNL * 44 HR this am will hold Cardizem and BB decrease BB when HR can tolerate 08/03 * heart rate remains 57-60 * continue metoprolol 12.5 mg q.12 hours * Cardizem continued (3) Congestive heart failure: Qualifiers: Heart failure chronicity: unspecified Code(s): I50.9 - Heart failure, unspecified Status: Acute Assessment and Plan: * continue metoprolol, losartan, Lasix, Jardiance 08/03 * no change to current treatment plan (4) Atrial fibrillation: Qualifiers: Atrial fibrillation type: longstanding persistent Qualified Code(s): I48.11 - Longstanding persistent atrial fibrillation Code(s): I48.91 - Unspecified atrial fibrillation Status: Acute Assessment and Plan: * continue Cardizem and Eliemmettis 08/03 * no change to current treatment plan (5) Type 2 diabetes mellitus with obesity: Code(s): E11.69 - Type 2 diabetes mellitus with other specified complication; E66.9 - Obesity, unspecified Status: Chronic Assessment and Plan: * Blood sugars ranging 187-245 * Hgb A1C 6.2 * Accu checks AC/HS * high-dose SSI ordered * hypoglycemic protocol in place * Diabetic diet ordered 07/27: * No change (6) Chronic acquired lymphedema: Code(s): I89.0 - Lymphedema, not elsewhere classified Status: Chronic Assessment and Plan: * bilateral lower extremity * wear lymphedema boots for 1 hour per day 08/03 * no change to current treatment plan (7) Congestion of nasal sinus: Code(s): R09.81 - Nasal congestion Status: Acute Assessment and Plan: * Add Claritin * Tessalon eric for cough 08/03 * no change to current treatment plan (8) UTI (urinary tract infection): Code(s): N39.0 - Urinary tract infection, site not specified Status: Resolved Assessment and Plan: * urine culture showing E coli * finish full course of cefuroxime while inpatient at [facility] * blood cultures were negative 08/03 * resolved (9) COVID: Code(s): U07.1 - COVID-19 Status: Resolved Assessment and Plan: * continue to wean O2 for sat greater than 92% * supportive care 08/03 * resolved (10) JOSE on CPAP: Code(s): G47.33 - Obstructive sleep apnea (adult) (pediatric); Z99.89 - Dependence on other enabling machines and devices Status: Chronic Assessment and Plan: * Resumed home CPAP 08/03 * no change to current treatment plan Time Spent With Patient Time with patient: 25 - 35 minutes Subjective Date/time seen: 08/03/24 08:16 Interval history: Interval History: This is 79-year-old female with a significant past medical history of lymphedema, obesity, AFib on oral anticoagulation, JOSE Wear CPAP at night, d iabetes, congestive heart failure, hypertension, chronic kidney disease who presented to [facility] for additional rehab after a hospitalization with COVID, UTI, acute kidney injury. patient was placed on cefuroxime 250 mg p.o. b.i.d. for her UTI, given Decadron, and supportive care for the COVID-19. urine culture showing E coli. she denies any fever, chills, nausea, vomiting, diarrhea, abdominal pain, chest pain, shortness a breath. She is currently on 2 L nasal cannula, Vital signs stable, she is afebrile. Subjective: patient denies any new complaints today. We started her on MiraLax yesterday due to some constipation and she was able to have a large bowel movement yesterday. Labs reviewed And are unremarkable. Review of Systems Review of Systems: All systems reviewed & are unremarkable except as noted in HPI and below Exam Narrative: General: In no acute distress, well nourished Cardiac: Normal S1 and S2. No murmur, gallops or friction rubs, peripheral pulses intact. Respiratory: Lungs diminished, no adventitious lung sounds, currently on 2 L Gastrointestinal: soft, non-distended, non-tender, normoactive bowel sounds. : voiding without difficulty. Extremities: Bilateral lower extremity lymphedema Neuro: Alert and oriented x4 Objective Data Vital Signs Vital Signs: Vital Signs - 24 hr 08/02/24 10:11 08/02/24 16:00 08/02/24 20:00 Temperature 97.9 F Pulse Rate 63 57 L 59 L Respiratory Rate 16 16 Blood Pressure 118/32 L Pulse Oximetry 96 96 Oxygen Delivery Room Air Room Air 08/02/24 20:41 08/03/24 00:00 Temperature 98.4 F Pulse Rate 60 60 Respiratory Rate 16 Blood Pressure 113/30 L Pulse Oximetry 96 Oxygen Delivery Room Air Intake/Output Intake/Output: Intake & Output 07/31/24 08/01/24 08/02/24 08/03/24 23:59 23:59 23:59 23:59 Intake Total 1600 1705 720 200 Output Total 650 Balance 950 1705 720 200 Meds/Results Medications: Active Medications Generic Name Dose Route Start Last Admin Trade Name Freq PRN Reason Stop Dose Admin Acetaminophen 650 mg 07/20/24 00:20 08/02/24 20:41 Acetaminophen 325 Mg Tablet PO 650 mg Q4H PRN Administration Pain or Fever Apixaban 2.5 mg 07/29/24 21:00 08/02/24 20:41 Apixaban 2.5 Mg Tablet PO 2.5 mg Q12HR JAYLENE Administration Ascorbic Acid 500 mg 07/20/24 09:00 08/02/24 10:12 Ascorbic Acid 500 Mg Tablet PO 500 mg DAILY JAYLENE Administration Benzonatate 200 mg 07/26/24 17:30 08/02/24 20:41 Benzonatate 100 Mg Capsule PO 200 mg TID PRN Administration Cough Cyanocobalamin 1,000 mcg 07/20/24 09:00 08/02/24 10:13 Cyanocobalamin 1,000 Mcg Tablet PO 1,000 mcg DAILY JAYLENE Administration Dextrose 12.5 gm 07/20/24 18:02 Dextrose 50% 25 Gm/50 Ml Syringe IV PUSH PRN PRN Hypoglycemia Protocol Diltiazem HCl 180 mg 07/20/24 09:00 08/02/24 10:12 Diltiazem Hcl Cd 180 Mg Cap.24hr PO 180 mg DAILY JAYLENE Administration Doxazosin Mesylate 8 mg 07/19/24 22:55 08/02/24 20:40 Doxazosin Mesylate 2 Mg Tablet PO 8 mg HS JAYLENE Administration Empagliflozin 25 mg 07/20/24 09:00 08/02/24 10:12 Empagliflozin 25 Mg Tablet PO 25 mg QAM JAYLENE Administration Furosemide 40 mg 07/20/24 09:00 08/02/24 10:12 Furosemide 40 Mg Tablet PO 40 mg DAILY JAYLENE Administration Glucagon 1 mg 07/20/24 18:02 Glucagon For Inj 1 Mg Vial IM PRN PRN Hypoglycemia Protocol Glucose 15 gm 07/20/24 18:02 Glucose Oral Gel 15 Gm Of Glucse In 37.5 Gm Tube PO PRN PRN Hypoglycemia Protocol Guaifenesin 600 mg 07/22/24 21:00 08/02/24 20:40 Guaifenesin 12 Hr 600 Mg Tabcr PO 600 mg Q12HR JAYLENE Administration Hydralazine HCl 50 mg 07/24/24 09:00 08/02/24 16:32 Hydralazine Hcl 25 Mg Tablet PO 50 mg TID JAYLENE Administration Dextrose 1,000 mls @ 100 mls/hr 07/20/24 18:02 Dextrose 5% 1,000 Ml IVPB PRN PRN Hypoglycemia Protocol Insulin Human Lispro 4 - 8 units 07/21/24 08:00 08/02/24 16:32 Insulin Human Lispro (*Bkc) 1,000 Units/10 Ml Vial SUB-Q Not Given TIDWM JAYLENE Protocol Loratadine 10 mg 07/19/24 22:54 07/29/24 20:39 Loratadine 10 Mg Tablet PO 10 mg DAILY PRN Administration allergy symptoms Losartan Potassium 100 mg 07/20/24 09:00 08/02/24 10:12 Losartan Potassium 50 Mg Tablet PO 100 mg DAILY JAYLENE Administration Metoprolol Tartrate 12.5 mg 07/27/24 21:00 08/02/24 20:41 Metoprolol Tartrate 12.5 Mg Tablet PO 12.5 mg Q12HR JAYLENE Administration Montelukast Sodium 10 mg 07/19/24 23:00 08/02/24 20:41 Montelukast Sodium 10 Mg Tablet PO 10 mg HS JAYLENE Administration Pyridoxine HCl 100 mg 07/20/24 09:00 08/02/24 10:11 Pyridoxine Hcl 50 Mg Tablet PO 100 mg DAILY JAYLENE Administration Trazodone HCl 75 mg 07/23/24 21:00 08/02/24 20:40 Trazodone Hcl 25 Mg Tablet PO 75 mg HS JAYLENE Administration Labs Labs: Laboratory Results - last 24 hr 08/02/24 08/02/24 08/02/24 11:39 16:32 20:35 WBC RBC Hgb Hct MCV MCH MCHC RDW Plt Count MPV Immature Gran % (Auto) Neut % (Auto) Lymph % (Auto) [place] % (Auto) Eos % (Auto) Baso % (Auto) Lymph # (Auto) [place] # (Auto) Eos # (Auto) Baso # (Auto) Abs Immat Gran (auto) Absolute Neuts (auto) Absolute Nucleated RBC Nucleated RBC % Sodium Potassium Chloride Carbon Dioxide Anion Gap BUN Creatinine Estim Creat Clear Calc Estimated GFR Glucose POC Capillary Glucose 207 H 176 H 162 H Calculated Osmolality Calcium Magnesium Total Bilirubin AST ALT Alkaline Phosphatase Total Protein Albumin 08/03/24 08/03/24 05:19 07:41 WBC 4.8 RBC 3.06 L Hgb 9.9 L Hct 30.5 L MCV 99.7 MCH 32.4 H MCHC 32.5 RDW 13.8 Plt Count 178 MPV 8.9 L Immature Gran % (Auto) 0.2 H Neut % (Auto) 67.4 Lymph % (Auto) 17.5 L [place] % (Auto) 10.1 Eos % (Auto) 4.2 Baso % (Auto) 0.6 Lymph # (Auto) 0.83 L [place] # (Auto) 0.48 Eos # (Auto) 0.20 Baso # (Auto) 0.03 Abs Immat Gran (auto) 0.01 H Absolute Neuts (auto) 3.20 Absolute Nucleated RBC 0.00 Nucleated RBC % 0.0 Sodium 137 Potassium 4.2 Chloride 100 Carbon Dioxide 28 Anion Gap 9 BUN 57 H Creatinine 2.17 H Estim Creat Clear Calc Not Reportable Estimated GFR 22 L Glucose 133 H POC Capillary Glucose 159 H Calculated Osmolality 301 H Calcium 8.7 Magnesium 2.2 Total Bilirubin 0.7 AST 20 ALT 28 Alkaline Phosphatase 73 Total Protein 6.1 L Albumin 2.9 L Quality VTE Prophylaxis VTE prophylaxis: pharmacologic ordered
[2024-08-03] MEDS: LOSARTAN POTASSIUM 50 MG TABLET 100 MG PO (09:46)
[2024-08-03 09:47] VITALS: PULSE 60
[2024-08-03] MEDS: guaiFENesin 12 HR 600 MG TABCR PO ×2 (09:47→20:42)
[2024-08-03] MEDS: METOPROLOL TARTRATE 12.5 MG TABLET PO ×2 (09:47→20:41)
[2024-08-03] MEDS: PYRIDOXINE HCL 50 MG TABLET 100 MG PO (09:54)
[2024-08-03] MEDS: ASCORBIC ACID 500 MG TABLET PO (09:54)
[2024-08-03] MEDS: APIXABAN 2.5 MG TABLET PO ×2 (09:54→20:42)
[2024-08-03] MEDS: CYANOCOBALAMIN 1,000 MCG TABLET 1000 MCG PO (09:55)
[2024-08-03] MEDS: dilTIAZem HCL CD 180 MG CAP.24HR PO (09:55)
[2024-08-03] MEDS: EMPAGLIFLOZIN 25 MG TABLET PO (09:55)
[2024-08-03] MEDS: FUROSEMIDE 40 MG TABLET PO (09:55)
[2024-08-03] MEDS: hydrALAZINE HCL 25 MG TABLET 50 MG PO ×3 (10:03→18:25)
[2024-08-03 11:54] LABS: Glucose Point of Care 171 mg/dl (65-105)
[2024-08-03 16:00] VITALS: BP 135/62; PULSE 62; RESP 14; TEMP 36.1; O2SAT 97
[2024-08-03 17:35] LABS: Glucose Point of Care 147 mg/dl (65-105)
[2024-08-03 20:41] VITALS: PULSE 68
[2024-08-03] MEDS: DOXAZOSIN MESYLATE 2 MG TABLET 8 MG PO (20:41)
[2024-08-03] MEDS: traZODone HCL 25 MG TABLET 75 MG PO (20:41)
[2024-08-03] MEDS: MONTELUKAST SODIUM 10 MG TABLET PO (20:42)
[2024-08-03] MEDS: BENZONATATE 100 MG CAPSULE 200 MG PO (20:49)
[2024-08-03 20:58] LABS: Glucose Point of Care 169 mg/dl (65-105)
[2024-08-04] VITALS (7 sets, daily range): BP systolic 118–135; BP diastolic 47–56; PULSE 54–68; RESP 14–20; TEMP 36.3–36.6; O2SAT 93–98
[2024-08-04 07:51] LABS: Glucose Point of Care 169 mg/dl (65-105)
[2024-08-04] MEDS: hydrALAZINE HCL 25 MG TABLET 50 MG PO ×3 (09:30→18:26)
[2024-08-04] MEDS: PYRIDOXINE HCL 50 MG TABLET 100 MG PO (09:31)
[2024-08-04] MEDS: ASCORBIC ACID 500 MG TABLET PO (09:31)
[2024-08-04] MEDS: CYANOCOBALAMIN 1,000 MCG TABLET 1000 MCG PO (09:31)
[2024-08-04] MEDS: METOPROLOL TARTRATE 12.5 MG TABLET PO ×2 (09:31→21:30)
[2024-08-04] MEDS: EMPAGLIFLOZIN 25 MG TABLET PO (09:31)
[2024-08-04] MEDS: LOSARTAN POTASSIUM 50 MG TABLET 100 MG PO (09:32)
[2024-08-04] MEDS: dilTIAZem HCL CD 180 MG CAP.24HR PO (09:32)
[2024-08-04] MEDS: guaiFENesin 12 HR 600 MG TABCR PO ×2 (09:33→21:30)
[2024-08-04] MEDS: APIXABAN 2.5 MG TABLET PO ×2 (09:33→21:30)
[2024-08-04] MEDS: FUROSEMIDE 40 MG TABLET PO (09:33)
[2024-08-04] MEDS: ACETAMINOPHEN 325 MG TABLET 650 MG PO ×2 (10:53→14:12)
[2024-08-04 12:04] LABS: Glucose Point of Care 196 mg/dl (65-105)
[2024-08-04 17:16] LABS: Glucose Point of Care 150 mg/dl (65-105)
[2024-08-04] MEDS: traZODone HCL 25 MG TABLET 75 MG PO (21:29)
[2024-08-04] MEDS: MONTELUKAST SODIUM 10 MG TABLET PO (21:30)
[2024-08-04] MEDS: DOXAZOSIN MESYLATE 2 MG TABLET 8 MG PO (21:30)
[2024-08-04 21:41] LABS: Glucose Point of Care 141 mg/dl (65-105)
[2024-08-05] VITALS: BP 136/40; PULSE 52; RESP 17; TEMP 36.3; O2SAT 96
[2024-08-05 07:24] VITALS: BP 123/50; PULSE 61; RESP 18; TEMP 36.1; O2SAT 96
[2024-08-05 07:40] LABS: Glucose Point of Care 146 mg/dl (65-105)
[2024-08-05 08:00] VITALS: BP 123/50; PULSE 61; RESP 18; TEMP 36.1; O2SAT 96
[2024-08-05] MEDS: polyethylene glycoL 3350 17 GM POWD.PACK PO (09:01)
[2024-08-05] MEDS: APIXABAN 2.5 MG TABLET PO ×2 (09:02→20:41)
[2024-08-05] MEDS: ASCORBIC ACID 500 MG TABLET PO (09:02)
[2024-08-05] MEDS: PYRIDOXINE HCL 50 MG TABLET 100 MG PO (09:02)
[2024-08-05] MEDS: EMPAGLIFLOZIN 25 MG TABLET PO (09:02)
[2024-08-05] MEDS: CYANOCOBALAMIN 1,000 MCG TABLET 1000 MCG PO (09:02)
[2024-08-05 09:03] VITALS: PULSE 61
[2024-08-05] MEDS: FUROSEMIDE 40 MG TABLET PO (09:03)
[2024-08-05] MEDS: hydrALAZINE HCL 25 MG TABLET 50 MG PO ×3 (09:03→16:35)
[2024-08-05] MEDS: METOPROLOL TARTRATE 12.5 MG TABLET PO ×2 (09:03→20:41)
[2024-08-05] MEDS: LOSARTAN POTASSIUM 50 MG TABLET 100 MG PO (09:03)
[2024-08-05] MEDS: dilTIAZem HCL CD 180 MG CAP.24HR PO (09:03)
[2024-08-05] MEDS: guaiFENesin 12 HR 600 MG TABCR PO ×2 (09:04→20:41)
[2024-08-05 11:48] LABS: Glucose Point of Care 153 mg/dl (65-105)
[2024-08-05 16:00] VITALS: BP 107/42; PULSE 57; RESP 20; TEMP 36.3; O2SAT 94
[2024-08-05 16:39] LABS: Glucose Point of Care 140 mg/dl (65-105)
--- NOTE | 2024-08-05 20:26 | PC.NURSE ---
Patient up in chair and watching TV, doing puzzles, and talking on her phone. Alert and oriented. Able to verbalize needs. Call light and belongings within reach.
[2024-08-05] MEDS: traZODone HCL 25 MG TABLET 75 MG PO (20:39)
[2024-08-05] MEDS: ACETAMINOPHEN 325 MG TABLET 650 MG PO (20:39)
[2024-08-05] MEDS: DOXAZOSIN MESYLATE 2 MG TABLET 8 MG PO (20:40)
[2024-08-05] MEDS: BENZONATATE 100 MG CAPSULE 200 MG PO (20:40)
[2024-08-05 20:41] VITALS: PULSE 58
[2024-08-05] MEDS: MONTELUKAST SODIUM 10 MG TABLET PO (20:41)
[2024-08-05 20:43] LABS: Glucose Point of Care 143 mg/dl (65-105)
[2024-08-06] VITALS: BP 111/57; PULSE 58; RESP 18; TEMP 36.4; O2SAT 95
[2024-08-06 07:38] VITALS: BP 129/40; PULSE 55; RESP 18; TEMP 36.4; O2SAT 94
[2024-08-06 07:50] LABS: Glucose Point of Care 135 mg/dl (65-105)
[2024-08-06] MEDS: polyethylene glycoL 3350 17 GM POWD.PACK PO (09:25)
[2024-08-06 09:26] VITALS: PULSE 68
[2024-08-06] MEDS: METOPROLOL TARTRATE 12.5 MG TABLET PO (09:26)
[2024-08-06] MEDS: FUROSEMIDE 40 MG TABLET PO (09:28)
[2024-08-06] MEDS: EMPAGLIFLOZIN 25 MG TABLET PO (09:28)
[2024-08-06] MEDS: ASCORBIC ACID 500 MG TABLET PO (09:28)
[2024-08-06] MEDS: PYRIDOXINE HCL 50 MG TABLET 100 MG PO (09:28)
[2024-08-06] MEDS: dilTIAZem HCL CD 180 MG CAP.24HR PO (09:28)
[2024-08-06] MEDS: APIXABAN 2.5 MG TABLET PO ×2 (09:28→20:57)
[2024-08-06] MEDS: hydrALAZINE HCL 25 MG TABLET 50 MG PO ×2 (09:28→12:26)
[2024-08-06] MEDS: CYANOCOBALAMIN 1,000 MCG TABLET 1000 MCG PO (09:29)
[2024-08-06] MEDS: LOSARTAN POTASSIUM 50 MG TABLET 100 MG PO (09:29)
[2024-08-06] MEDS: guaiFENesin 12 HR 600 MG TABCR PO ×2 (09:29→20:56)
[2024-08-06 11:25] LABS: Glucose Point of Care 147 mg/dl (65-105)
[2024-08-06 15:48] VITALS: BP 108/29; PULSE 50; RESP 18; TEMP 36.3; O2SAT 96
[2024-08-06 16:51] LABS: Glucose Point of Care 197 mg/dl (65-105)
[2024-08-06] MEDS: DOCUSATE SODIUM 100 MG CAPSULE PO (17:42)
[2024-08-06] MEDS: traZODone HCL 25 MG TABLET 75 MG PO (20:56)
[2024-08-06 20:57] VITALS: PULSE 55
[2024-08-06] MEDS: MONTELUKAST SODIUM 10 MG TABLET PO (20:57)
[2024-08-06] MEDS: DOXAZOSIN MESYLATE 2 MG TABLET 8 MG PO (20:57)
[2024-08-06 20:58] LABS: Glucose Point of Care 166 mg/dl (65-105)
[2024-08-06] MEDS: ACETAMINOPHEN 325 MG TABLET 650 MG PO (21:22)
[2024-08-07] VITALS: BP 133/32; PULSE 58; RESP 20; TEMP 36.2
--- NOTE | 2024-08-07 00:10 | PC.NURSE ---
Pt resting quietly in bed and doesnt voice any c/o pain. Side rails up and call parsons within reach.
--- NOTE | 2024-08-07 02:15 | PC.NURSE ---
Pt asleep and no signs of discomfort noted.
--- NOTE | 2024-08-07 04:15 | PC.NURSE ---
Pt asleep and no signs of discomfort noted.
--- NOTE | 2024-08-07 06:11 | PC.NURSE ---
Pt asleep and no signs of respiratory distress noted.
[2024-08-07 08:00] VITALS: BP 91/63; PULSE 73; RESP 20; TEMP 36.6; O2SAT 96
[2024-08-07 08:05] LABS: Glucose Point of Care 133 mg/dl (65-105)
[2024-08-07 09:14] VITALS: PULSE 64
[2024-08-07] MEDS: EMPAGLIFLOZIN 25 MG TABLET PO (09:14)
[2024-08-07] MEDS: hydrALAZINE HCL 25 MG TABLET 50 MG PO ×2 (09:14→13:47)
[2024-08-07] MEDS: PYRIDOXINE HCL 50 MG TABLET 100 MG PO (09:14)
[2024-08-07] MEDS: CYANOCOBALAMIN 1,000 MCG TABLET 1000 MCG PO (09:14)
[2024-08-07] MEDS: ASCORBIC ACID 500 MG TABLET PO (09:14)
[2024-08-07] MEDS: METOPROLOL TARTRATE 12.5 MG TABLET PO ×2 (09:14→20:54)
[2024-08-07] MEDS: guaiFENesin 12 HR 600 MG TABCR PO ×2 (09:14→20:53)
[2024-08-07] MEDS: FUROSEMIDE 40 MG TABLET PO (09:14)
[2024-08-07] MEDS: LOSARTAN POTASSIUM 50 MG TABLET 100 MG PO (09:14)
[2024-08-07] MEDS: dilTIAZem HCL CD 180 MG CAP.24HR PO (09:14)
[2024-08-07] MEDS: APIXABAN 2.5 MG TABLET PO ×2 (09:14→20:54)
[2024-08-07 11:58] LABS: Glucose Point of Care 183 mg/dl (65-105)
[2024-08-07 16:00] VITALS: BP 110/54; PULSE 55; RESP 16; TEMP 36.4; O2SAT 95
[2024-08-07 16:57] LABS: Glucose Point of Care 143 mg/dl (65-105)
[2024-08-07 20:00] VITALS: PULSE 60; RESP 16; O2SAT 96
[2024-08-07 20:53] LABS: Glucose Point of Care 154 mg/dl (65-105)
[2024-08-07] MEDS: traZODone HCL 25 MG TABLET 75 MG PO (20:53)
[2024-08-07] MEDS: BENZONATATE 100 MG CAPSULE 200 MG PO (20:53)
[2024-08-07] MEDS: DOXAZOSIN MESYLATE 2 MG TABLET 8 MG PO (20:53)
[2024-08-07 20:54] VITALS: PULSE 60
[2024-08-07] MEDS: MONTELUKAST SODIUM 10 MG TABLET PO (20:54)
[2024-08-08] VITALS: BP 100/56; PULSE 60; RESP 16; TEMP 36.5; O2SAT 96
[2024-08-08] MEDS: ACETAMINOPHEN 325 MG TABLET 650 MG PO (06:33)
[2024-08-08 07:40] VITALS: BP 134/47; PULSE 68; RESP 18; TEMP 36.5; O2SAT 97
[2024-08-08 07:53] LABS: Glucose Point of Care 133 mg/dl (65-105)
[2024-08-08 08:35] VITALS: PULSE 68; RESP 18; O2SAT 97
[2024-08-08 08:42] VITALS: PULSE 68
[2024-08-08] MEDS: guaiFENesin 12 HR 600 MG TABCR PO (08:42)
[2024-08-08] MEDS: METOPROLOL TARTRATE 12.5 MG TABLET PO (08:42)
[2024-08-08] MEDS: PYRIDOXINE HCL 50 MG TABLET 100 MG PO (08:42)
[2024-08-08] MEDS: ASCORBIC ACID 500 MG TABLET PO (08:42)
[2024-08-08] MEDS: CYANOCOBALAMIN 1,000 MCG TABLET 1000 MCG PO (08:42)
[2024-08-08] MEDS: LOSARTAN POTASSIUM 50 MG TABLET 100 MG PO (08:42)
[2024-08-08] MEDS: dilTIAZem HCL CD 180 MG CAP.24HR PO (08:43)
[2024-08-08] MEDS: hydrALAZINE HCL 25 MG TABLET 50 MG PO (08:43)
[2024-08-08] MEDS: APIXABAN 2.5 MG TABLET PO (08:43)
[2024-08-08] MEDS: FUROSEMIDE 40 MG TABLET PO (08:43)
[2024-08-08] MEDS: EMPAGLIFLOZIN 25 MG TABLET PO (08:43)
--- NOTE | 2024-08-08 08:43 | PM.DS ---
DS: Admitting Diagnosis Discharge Date 08/08/2024 Admitting Diagnosis Generalized weakness/ physically deconditioned DS: Discharge Diagnosis Discharge Diagnosis (1) Weakness: Code(s): R53.1 - Weakness Status: Acute Assessment and Plan: PT and OT home health (2) HTN (hypertension): Qualifiers: Hypertension type: essential hypertension Qualified Code(s): I10 - Essential (primary) hypertension Code(s): I10 - Essential (primary) hypertension Status: Acute Assessment and Plan: decreased metoprolol to12.5 mg q.12 hours Cardizem continued hydralazine increased to 3 times a day (3) Congestive heart failure: Qualifiers: Heart failure chronicity: unspecified Code(s): I50.9 - Heart failure, unspecified Status: Acute Assessment and Plan: continue metoprolol, losartan, Lasix, Jardiance (4) Atrial fibrillation: Qualifiers: Atrial fibrillation type: longstanding persistent Qualified Code(s): I48.11 - Longstanding persistent atrial fibrillation Code(s): I48.91 - Unspecified atrial fibrillation Status: Acute Assessment and Plan: continue Cardizem and Eliquis Eliquis decreased to 2.5 b.i.d. (5) Type 2 diabetes mellitus with obesity: Code(s): E11.69 - Type 2 diabetes mellitus with other specified complication; E66.9 - Obesity, unspecified Status: Chronic Assessment and Plan: resumed patient's home medications (6) Chronic acquired lymphedema: Code(s): I89.0 - Lymphedema, not elsewhere classified Status: Chronic Assessment and Plan: bilateral lower extremity wear lymphedema boots for 1 hour per day (7) Congestion of nasal sinus: Code(s): R09.81 - Nasal congestion Status: Acute Assessment and Plan: resolved (8) UTI (urinary tract infection): Code(s): N39.0 - Urinary tract infection, site not specified Status: Resolved Assessment and Plan: resolved (9) COVID: Code(s): U07.1 - COVID-19 Status: Resolved Assessment and Plan: resolved (10) JOSE on CPAP: Code(s): G47.33 - Obstructive sleep apnea (adult) (pediatric); Z99.89 - Dependence on other enabling machines and devices Status: Chronic Assessment and Plan: Resumed home CPAP Plan Disposition: discharged to home DS: Summary Hospital Course Reason for hospitalization: generalized weakness/ physically deconditioned Hospital Course: Patient was a 79-year-old female with a significant past medical history of lymphedema, obesity, AFib on oral anticoagulation, JOSE Wear CPAP at night, diabetes, congestive heart failure, hypertension, chronic kidney disease who presented to [facility] for additional rehab after a hospitalization with COVID, UTI, acute kidney injury. patient was placed on cefuroxime 250 mg p.o. b.i.d. for her UTI, given Decadron, and supportive care for the COVID-19. urine culture showing E coli. patient progressed well with physical and occupational therapy she improved in her strength and endurance. During her stay she did have bradycardia and her metoprolol had been decreased to 12.5 twice a day and for her hypertension we increased her hydralazine to 3 times a day. patient was seen and assessed on day of discharge with no complaints and in no acute distress. Patient states she is prepared to return home feel she care for herself home plan is for a caregiver for the initial few 1st weeks at home as well as continued health to continue to physical and occupational therapy. at time of discharge patient denied any chest pain, shortness breath, nausea, vomiting, abdominal pain, urinary concerns and reported overall feeling well. patient acknowledged and agreed with discharge patient was discharged home via transported with family. Status at Discharge Functional status at discharge: uses cane/walker Time Spent with Patient Time attestation: Total time spent providing and/or coordinating discharge services: Time spent: Greater than 30 minutes Exam Narrative: General: In no acute distress, well nourished Cardiac: Normal S1 and S2. No murmur, gallops or friction rubs, peripheral pulses intact. Respiratory: Lungs diminished, no adventitious lung sounds, currently on 2 L Gastrointestinal: soft, non-distended, non-tender, normoactive bowel sounds. : voiding without difficulty. Extremities: Bilateral lower extremity lymphedema Neuro: Alert and oriented x4 DS: Data Data Completed and Pending Labs on day of discharge: Labs from last 24 hours 08/08/24 08/07/24 08/07/24 07:51 20:52 16:52 POC Capillary Glucose 133 H 154 H 143 H 08/07/24 11:49 POC Capillary Glucose 183 H Discharge Plan Discharge Attending physician on discharge: Tuan Duran Consulting providers: Maira Ugalde Discharging Clinician: Maira Ugalde Anticipated Discharge Date/Time: 08/08/24 08:33 Patient Disposition: Home Health Service Activity: may shower and as tolerated Diet: heart healthy and low sodium Discharge Instructions: generalized weakness you are set up with [facility] who will continue with physical and occupational therapy hypertension please take your metoprolol Cardizem and hydralazine as prescribed. I did decrease your metoprolol to 12.5 twice a day due to low heart rate atrial fibrillation resume your metoprolol Cardizem and Eliquis number yogurt higher risk for bleeding due to your blood thinner diabetes continue with your home medications follow-up with primary care physician for continued evaluation follow up A1c monitor blood sugars encourage a diabetic diet lower extremity lymphedema continue to wear your lymphedema boots for 1 hour per day obstructive sleep apnea please continue to wear your CPAP at night How can you care for yourself at home? ? Keep track of any new symptoms or changes in your symptoms. ? Rest until you feel better. ? Be safe with medicines. Take your medicines exactly as prescribed. Call your doctor if you think you are having a problem with your medicine. ? Do not drive after taking a prescription pain medicine. ? Ensure to follow-up with primary care physician as indicated and provide updated medication list provided to you at discharge. When should you call for help? Call 911 anytime you think you may need emergency care. For example, call if: ? You passed out (lost consciousness). Call your doctor now or seek immediate medical care if: ? You have new symptoms like fever, difficulty breathing, Chest pain, vomiting, or rash. ? You have new or different pain. ? You are confused and are having trouble thinking clearly. ? Your symptoms are getting worse. Watch closely for changes in your health, and be sure to contact your doctor if: ? You do not get better as expected. Patient Instructions: Antibiotic Form, Apixaban (By mouth), A-fib (Atrial Fibrillation) (DC), Sleep Apnea (GEN), Foot Care for People with Diabetes (DC), Hypertension (DC), Fall Prevention (DC), CPAP (GEN), Type 2 Diabetes in the Older Adult (DC), Hypertension and Diabetes (DC), Diabetes and Exercise (DC) Patient Language: Thai Stand Alone Forms: General Discharge Information Follow-up/Referrals: Sandra Gomez MD [Primary Care Provider] - 2 weeks Discharge Medications: New Eliquis 2.5 mg Tablet 2.5 mg PO Q12HR Qty: 60 0RF metoprolol tartrate 25 mg tablet 12.5 mg PO BID Qty: 30 0RF trazodone 50 mg tablet 50 mg PO HS PRN (Reason: insomnia) Qty: 30 0RF Continued pyridoxine (vitamin B6) 100 mg tablet 100 mg PO DAILY mecobalamin (vitamin B12) 1,000 mcg tablet,chewable 1,000 mcg PO DAILY ascorbate calcium (vitamin C) 500 mg tablet 500 mg PO DAILY Algal [place]-3 DHA 200 mg capsule 200 mg PO DAILY cetirizine [Zyrtec] 10 mg tablet 10 mg PO DAILY PRN (Reason: allergy symptoms) montelukast 10 mg tablet 10 mg PO HS (DME) OneTouch Ultra Test Strip See Rx Instructions .Route Qty: 100 11RF Rx Instructions: As directed TID. Ultra blue test strips furosemide 40 mg tablet 40 mg PO DAILY Qty: 90 1RF losartan 100 mg tablet 100 mg PO DAILY Qty: 90 1RF doxazosin 8 mg tablet 8 mg PO HS Qty: 90 1RF diltiazem HCl [Tiadylt ER] 180 mg capsule,extended release 24 hr 180 mg PO DAILY Qty: 90 1RF empagliflozin 25 mg tablet 25 mg PO QAM Qty: 90 3RF Changed hydralazine 50 mg tablet 50 mg PO TID Qty: 90 3RF Discontinued metoprolol tartrate 100 mg tablet 50 mg PO BID Qty: 90 1RF Eliquis 5 mg tablet 5 mg PO Q12HR Qty: 60 5RF Date of admission: 07/19/24 21:20 Primary Care Provider: Sandra Gomez Admitting Provider: Tuan Duran Attending physician on admission: Marti Quinn Condition: Improved Quality VTE Prophylaxis VTE prophylaxis: pharmacologic ordered -Patient's previous records reviewed on admission -ER notes reviewed in detail on admission -discussed all findings and current treatment plan with patient/Family/POA -Consultations reviewed for recommendations -Patient's disposition for safe discharge discussed with telephonic case manager Dictation performed by [employer] direct speech recognition software, therefore asset availability leader variants and typographical errors may occur. Hospitalist MIPS Heart Failure (Exclusion) Patient has history of Heart Transplant or Left Ventricular Assistive Device?: No IF YES, STOP HERE Heart Failure (Qualifier) Patient has current or prior documentation of LVEF less than or equal to 40%, or mod/servere depressed LVSF?: No IF NO, STOP HERE
[2024-08-08 11:40] LABS: Glucose Point of Care 151 mg/dl (65-105)
--- NOTE | 2024-08-08 13:20 | PC.NURSE ---
Patient discharging home. Patients nephew here to transport patient home. All patients belongings gathered together and sent home with patient. All discharge instructions and education reviewed with patient. Patient states understanding. No IV site present at discharge. This nurse accompanied patient to front door via wheelchair. Patient left via private vehicle with nephew. Patient deneis any questiosn at discharge.
--- NOTE | 2024-08-09 12:23 | PC.NURSE ---
Discharge call back attempted, no answer
--- NOTE | 2024-08-12 09:54 | PC.NURSE ---
Unable to reach for discharge call back
== END 2024-08-08 13:20 | disposition home health service (06) | DRG 948 ==
PROVIDERS: Nurse Practitioner Family; Admitting Provider Internal Medicine; PCP Family Medicine; Visit Provider Nurse Practitioner Acute Care
DX: R53.1 Weakness (principal); I13.0 Hypertensive heart and chronic kidney disease with heart failure and stage 1 through stage 4 chronic kidney disease, or unspecified chronic kidney disease; I48.20 Chronic atrial fibrillation, unspecified; I50.9 Heart failure, unspecified; N18.9 Chronic kidney disease, unspecified; E11.22 Type 2 diabetes mellitus with diabetic chronic kidney disease; I89.0 Lymphedema, not elsewhere classified; E78.5 Hyperlipidemia, unspecified; R00.1 Bradycardia, unspecified; R01.1 Cardiac murmur, unspecified; H40.9 Unspecified glaucoma; M19.90 Unspecified osteoarthritis, unspecified site; G47.33 Obstructive sleep apnea (adult) (pediatric); Z79.01 Long term (current) use of anticoagulants
CPT/HCPCS: 36415; 80053; 82948; 83735; 85025; 85027; 97110; 97162; 97165; 97530; 97535; A9270; J1815